=== PATIENT | male | born 1975 | race Caucasian/White ===

== ENCOUNTER 2016-10-07 04:30 | Inpatient (IN) | payer BC ==
[2016-10-07] MEDS: SODIUM CHLOR 0.9% 1000 ML INJ 1,000 ML IV SCH ×3 (04:30→17:54)
[2016-10-07 08:50] VITALS: BP 117/77; PULSE 102; RESP 21; TEMP 97; O2SAT 97
[2016-10-07] MEDS ORDERED: MORPHINE SULFATE 4 MG/ML INJ IV PUSH ONE (09:00)
[2016-10-07] MEDS ORDERED: IOHEXOL 350 MG/ML 10 ML VIAL (for RAD DIAG) IV ONE (09:38)
[2016-10-07] MEDS ORDERED: ACETAMINOPHEN 325 MG TAB PO PRN (10:15)
[2016-10-07] MEDS ORDERED: SODIUM CHLORIDE 0.9% FLUSH 10 ML FLUSH IV FLUSH PRN (10:15)
[2016-10-07] MEDS ORDERED: DEXTROSE 50% IN WATER 50 ML VIAL(D50) IV PRN (10:45)
[2016-10-07] MEDS ORDERED: GLUCAGON 1 MG/ML VIAL OTHER PRN (10:45)
[2016-10-07 11:10] LABS: AUTOMATED NEUTROPHIL # 3.2 TH/MM3 (1.8-7.7); BASOPHIL % 0.9 % (0.0-2.0); EOSINOPHIL # 0.1 TH/MM3 (0-0.4); EOSINOPHIL % 2.1 % (0.0-4.0); HEMATOCRIT 44.8 % (39.0-51.0); HEMO FLAGS DIFF FINAL; LYMPH % 27.2 % (9.0-44.0); LYMPHOCYTE # 1.4 TH/MM3 (1.0-4.8); MEAN CELL VOLUME 86.7 FL (80.0-100.0); MEAN CORPUSCULAR HEMOGLOBIN 30.5 PG (27.0-34.0); MEAN CORPUSCULAR HGB CONC 35.2 % (32.0-36.0); NEUT % 61.8 % (16.0-70.0); PLATELET COUNT 235 TH/MM3 (150-450); RED BLOOD COUNT 5.16 MIL/MM3 (4.50-5.90); RED CELL DISTRIBUTION WIDTH 13.3 % (11.6-17.2); WHITE BLOOD COUNT 5.3 TH/MM3 (4.0-11.0)
--- NOTE | 2016-10-07 11:14 | RADRPT ---
EXAM DATE/TIME: 10/07/2016 09:29 [facility] COMPARISON: No previous studies available for comparison. INDICATIONS : Right lower quadrant pain, evaluate for ischemic bowel IV CONTRAST: 100 cc Omnipaque 350 (iohexol) IV ORAL CONTRAST: No oral contrast ingested. RADIATION DOSE: 7.54 CTDIvol (mGy) MEDICAL HISTORY : Hypertension. Pancreatitis. Diabetes mellitus type 1. SURGICAL HISTORY : Cholecystectomy. ENCOUNTER: Initial ACUITY: 2 days PAIN SCALE: 9/10 LOCATION: Right lower quadrant TECHNIQUE: Volumetric scanning was performed using a multi-row detector CT scanner. The data was post processed with a variety of visualization algorithms including full volume maximum intensity projection, multi -planar sliding thin slab reformation, curved planar reformation, and surface rendering techniques. Using automated exposure control and adjustment of the mA and/or kV according to patient size, radiat ion dose was kept as low as reasonably achievable to obtain optimal diagnostic quality images. FINDINGS: The abdominal aorta and iliacs are widely patent. Looking at the aortic visceral vessels, there is va riant celiac anatomy with separate origins of the common hepatic artery and splenic artery from the a palma adjacent to one another. The left gastric arises from the proximal splenic. The superior mesente stefani artery is widely patent. The inferior mesenteric artery is widely patent. In the pelvis, hypogast rics are patent bilaterally. The visualized proximal thigh vessels are normal in appearance. Elsewhere on the exam comment note is made of mild bibasilar parenchymal lung infiltrates. The gallbl adder is surgically absent. Urinary bladder is mildly distended. The appendix is seen and appears nor mal. CONCLUSION: No evidence of mesenteric arterial stenosis Kaleb Sarkar MD on October 07, 2016 at 11:05 Board Certified Radiologist. This report was verified electronically.
[2016-10-07 11:29] LABS: ALT (GPT) 167 U/L (12-78); ANION GAP 7 MEQ/L (5-15); AST (GOT) 144 U/L (15-37); BICARBONATE 23.6 MEQ/L (21.0-32.0); BLOOD UREA NITROGEN 9 MG/DL (7-18); CHLORIDE 107 MEQ/L (98-107); GLOMERULAR FILTRATION RATE 144 ML/MIN (>89); MAGNESIUM 2.2 MG/DL (1.5-2.5); POTASSIUM 3.9 MEQ/L (3.5-5.1); SODIUM (NA) 138 MEQ/L (136-145)
[2016-10-07 11:33] LABS: ALKALINE PHOSPHATASE 97 U/L (45-117); TOTAL BILIRUBIN ADULT 0.8 MG/DL (0.2-1.0)
[2016-10-07] MEDS: HEPARIN SODIUM - SQ 10,000 UNITS/ML VIAL SQ SCH ×3 (11:33→18:46)
[2016-10-07] MEDS: MORPHINE SULFATE 4 MG/ML INJ IV PUSH PRN ×5 (11:33→22:57)
[2016-10-07] MEDS: ONDANSETRON HCL 4 MG/2 ML VIAL IVP PRN ×3 (11:34→22:57)
[2016-10-07] MEDS: INSULIN ASPART SUPPLEMENTAL SCALE SQ SCH ×3 (11:35→19:50)
[2016-10-07 11:45] LABS: HDL CHOLESTEROL 21.8 MG/DL (40.0-60.0)
[2016-10-07 12:37] VITALS: BP 123/78; PULSE 86; RESP 20; TEMP 97.3; O2SAT 97
--- NOTE | 2016-10-07 14:22 | PD.CONS ---
HPI History of Present Illness This is a 41 year old [gentleman] who presented to [facility] with RLQ pain. yesterday at dinner he experienced "stomach ache" like he ate too much and then a few hours later began having a sharp stabbing severe pain in his RLQ. He did have nausea and vomited x 1. He had a similar episode of pain in 2002 and was told it was intussuception, given bowel rest. His last BM was yesterday and normal per pt. No hematemesis, tarry stool, hematochezia. Never had colonoscopy or EGD. He does complain of what appears to be abdominal hernia that has grown in the last months and is sore. (Gini Smith) PFSH Past Medical History DM2 Past Surgical History mastoidectomy cholecystectomy (Gini Smith) Coded Allergies: No Known Allergies (Verified , 10/06/16) Family History CVD DM Social History ETOh rarely smokes 1ppd no drugs (Gini Smith) Review of Systems Constitutional: DENIES: Fever Ears, nose, mouth, throat: DENIES: Hearing loss Respiratory: DENIES: Cough Cardiovascular: DENIES: Chest pain Gastrointestinal: COMPLAINS OF: Abdominal pain, Nausea, Vomiting, DENIES: Black stools, Bloody stools, Constipation, Diarrhea, Swelling of Abdomen, Hematemesis Genitourinary: DENIES: Hematuria Musculoskeletal: DENIES: Muscle aches Integumentary: DENIES: Rash Hematologic/lymphatic: DENIES: Bruising Immunologic/allergic: DENIES: Eczema Psychiatric: DENIES: Confusion (Gini Smith) GI Exam Vitals I&O Vital Signs Date Time Temp Pulse Resp B/P Pulse Ox O2 Delivery O2 Flow Rate FiO2 10/07/16 12:37 97.3 86 20 123/78 97 10/07/16 08:50 97.0 102 21 117/77 97 Imaging Last Impressions Abdomen/Pelvis CT 10/07/16 0000 Signed Impressions: Service Date/Time: Friday, October 07, 2016 09:29 - CONCLUSION: No evidence of mesenteric arterial stenosis Kaleb Sarkar MD Laboratory Test 10/07/16 10:51 White Blood Count 5.3 TH/MM3 Red Blood Count 5.16 MIL/MM3 Hemoglobin 15.8 GM/DL Hematocrit 44.8 % Mean Corpuscular Volume 86.7 FL Mean Corpuscular Hemoglobin 30.5 PG Mean Corpuscular Hemoglobin 35.2 % Concent Red Cell Distribution Width 13.3 % Platelet Count 235 TH/MM3 Mean Platelet Volume 7.1 FL Neutrophils (%) (Auto) 61.8 % Lymphocytes (%) (Auto) 27.2 % Monocytes (%) (Auto) 8.0 % Eosinophils (%) (Auto) 2.1 % Basophils (%) (Auto) 0.9 % Neutrophils # (Auto) 3.2 TH/MM3 Lymphocytes # (Auto) 1.4 TH/MM3 Monocytes # (Auto) 0.4 TH/MM3 Eosinophils # (Auto) 0.1 TH/MM3 Basophils # (Auto) 0.0 TH/MM3 CBC Comment DIFF FINAL Differential Comment Sodium Level 138 MEQ/L Potassium Level 3.9 MEQ/L Chloride Level 107 MEQ/L Carbon Dioxide Level 23.6 MEQ/L Anion Gap 7 MEQ/L Blood Urea Nitrogen 9 MG/DL Creatinine 0.61 MG/DL Estimat Glomerular Filtration 144 ML/MIN Rate Random Glucose 219 MG/DL Calcium Level 7.8 MG/DL Phosphorus Level 3.4 MG/DL Magnesium Level 2.2 MG/DL Total Bilirubin 0.8 MG/DL Aspartate Amino Transf 144 U/L (AST/SGOT) Alanine Aminotransferase 167 U/L (ALT/SGPT) Alkaline Phosphatase 97 U/L Total Protein 6.2 GM/DL Albumin 3.5 GM/DL Triglycerides Level 1156 MG/DL Cholesterol Level 264 MG/DL LDL Cholesterol MG/DL HDL Cholesterol 21.8 MG/DL Cholesterol/HDL Ratio 12.11 RATIO Lipase 1452 U/L Physical Examination HEENT: EOMI; normocephalic; atraumatic; no jaundice. CHEST: CTA CARDIAC: RRR ABDOMEN: Soft, nondistended, mild TTP RLQ; no hepatosplenomegaly; bowel sounds are present in all four quadrants. EXTREMITIES: No clubbing, cyanosis, or edema. SKIN: Normal; no rash; no jaundice. [employer] WORK[employer]: No focal deficits; alert and oriented times three. (Gini Smith) Assessment and Plan Plan ASSESSMENT - RLQ pain - recent sudden onsent sharp RLQ pain with nausea, 1 x vomit. HX intussception. CT abd unremarkable. D/w Dr Jaymie, pancreas normal, poss mild hepatic steatosis, no thickened loops colon to indicate ischemia. will do colonoscopy, EGD. - elevated lipase - 1452. maybe secondary to hypertriglyceridemia, 1156. - elevated LFTs - AST 144, ALT 167. Hep panel pending. 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
[2016-10-07] MEDS ORDERED: MAGNESIUM CITRATE SOLN 300 ML BTL PO ONE ×2 (16:00→18:00)
[2016-10-07 16:38] VITALS: BP 114/77; PULSE 86; RESP 20; TEMP 97.1; O2SAT 96
--- NOTE | 2016-10-07 17:13 | PD.PN.STU ---
Subjective Remarks Patient is a 41 year old gentleman with PMH of type 2 diabetes who presented to the ED 10/07 with a one day complaint of abdominal pain. The pain was initially epigastric in nature and described as a cramping sensation. It then gradually moved towards the RLQ and described as sharp and stabbing. On a pain scale he described it as 8.5/10. He denies having a BM since the onset of his pain but does report a history of watery bowel movements for a long time. He also describes nausea and one episode of vomiting with no blood. He reports still having an appetite. He has no pain with urination, fevers, SOB, chest pain, or syncope. He says in 2002 he had an episode of intussusception which feels similar to the pain he is having now. PMH: type 2 diabetes Meds: Metformin SHx: gallbladder, mastoidectomy FHx: mother: type 2 diabetes; father: type 2 diabetes, heart disease Allergies: NKA Social: 1 ppd for 20x yrs, rarely uses alcohol, works as pest control Objective Vitals GENERAL: Very uncomfortable, alert/awake/oriented x3, appears stated age, well- developed SKIN: Warm and dry. HEAD: Atraumatic. Normocephalic. EYES: Pupils equal and round. No scleral icterus. No injection or drainage. ENT: No nasal bleeding or discharge. Mucous membranes pink and moist. NECK: Trachea midline. No JVD. CARDIOVASCULAR: Regular rate and rhythm. RESPIRATORY: No accessory muscle use. Clear to auscultation. Breath sounds equal bilaterally. GASTROINTESTINAL: Bowel sounds decreased, abdomen nondistended. Pain with palpation in RLQ and referred pain to RLQ with palpation of LLQ. No rebound. MUSCULOSKELETAL: Extremities without clubbing, cyanosis, or edema. No obvious deformities. PSYCHIATRIC: Appropriate mood and affect; insight and judgment normal. Vital Signs Date Time Temp Pulse Resp B/P Pulse Ox O2 Delivery O2 Flow Rate FiO2 10/07/16 16:38 97.1 86 20 114/77 96 10/07/16 12:37 97.3 86 20 123/78 97 10/07/16 08:50 97.0 102 21 117/77 97 Result Diagram: 10/07/16 1051 10/07/16 1051 A/P Assessment and Plan Acute pancreatitis: Likely due to high triglyceride levels Lipase levels elevated NPO IV morphine NS Hypercholesterolemia: Initiate -statin therapy Hypertriglyceridemia: Initiate -statin therapy Type 2 diabetes mellitus: Pending HbA1c Discussed lifestyle changes Obesity: Lifestyle modifications Tobacco use: Discussed cessation Dung Yepez October 07, 2016 17:13 Sean Key MD October 08, 2016 17:19
--- NOTE | 2016-10-07 18:15 | HHI.HP ---
HPI Service [facility] Primary Care Physician No Primary Care Physician Admission Diagnosis Diagnoses: Chief Complaint: Abdominal pain Travel History International Travel<30 Days: No Contact w/Intl Traveler <30 Da: No Traveled to Known Affected Are: No History of Present Illness This is a 41-year-old male with past medical history significant for type 2 diabetes who presents to [facility] ED on 10/07 complaining of one day of abdominal pain. The patient states that the pain presented the night prior to presentation to the hospital localized in the epigastric region and the was described as crampy in sensation. Patient states that the pain gradually moved towards the right lower quadrant and became sharp and stabbing. Patient states the pain was 8-9/10 in intensity. Abdominal pain was associated with diarrhea and one episode of vomiting without blood. Patient states having an appetite. There was no pain with urination, fevers denies chance of breath, chest pain, palpitations, melena or hematochezia. Patient elicits a history of intussusception in 2002 which he had similar episodes of pain to what he is having now. Review of Systems As per history of present illness, other systems reviewed by me and negative. Past Family Social History Past Medical History DM2 Past Surgical History mastoidectomy cholecystectomy Reported Medications Metformin Allergies: Coded Allergies: No Known Allergies (Verified , 10/06/16) Active Ordered Medications Family History CVD DM Social History ETOh rarely smokes 1ppd no drugs Physical Exam Vital Signs Vital Signs Date Time Temp Pulse Resp B/P Pulse Ox O2 Delivery O2 Flow Rate FiO2 10/07/16 16:38 97.1 86 20 114/77 96 10/07/16 12:37 97.3 86 20 123/78 97 10/07/16 08:50 97.0 102 21 117/77 97 Physical Exam GENERAL: This is a well-nourished, well-developed patient, in no apparent distress. SKIN: No rashes, ecchymoses or lesions. Cool and dry. HEAD: Atraumatic. Normocephalic. No temporal or scalp tenderness. EYES: Pupils equal round and reactive. Extraocular motions intact. No scleral icterus. No injection or drainage. ENT: Nose without bleeding, purulent drainage or septal hematoma. Throat without erythema, tonsillar hypertrophy or exudate. Uvula midline. Airway patent. NECK: Trachea midline. No JVD or lymphadenopathy. Supple, nontender, no meningeal signs. CARDIOVASCULAR: Regular rate and rhythm without murmurs, gallops, or rubs. RESPIRATORY: Clear to auscultation. Breath sounds equal bilaterally. No wheezes , rales, or rhonchi. GASTROINTESTINAL: Abdomen soft, tender to palpation of the right lower quadrant and epigastric region, nondistended. No hepato-splenomegaly, or palpable masses. No guarding. MUSCULOSKELETAL: Extremities without clubbing, cyanosis, or edema. No joint tenderness, effusion, or edema noted. No calf tenderness. Negative Homans sign bilaterally. NEUROLOGICAL: Awake and alert. Cranial nerves II through XII intact. Motor and sensory grossly within normal limits. Five out of 5 muscle strength in all muscle groups. Normal speech. Laboratory Laboratory Tests Test 10/07/16 10:51 White Blood Count 5.3 Red Blood Count 5.16 Hemoglobin 15.8 Hematocrit 44.8 Mean Corpuscular Volume 86.7 Mean Corpuscular Hemoglobin 30.5 Mean Corpuscular Hemoglobin 35.2 Concent Red Cell Distribution Width 13.3 Platelet Count 235 Mean Platelet Volume 7.1 Neutrophils (%) (Auto) 61.8 Lymphocytes (%) (Auto) 27.2 Monocytes (%) (Auto) 8.0 Eosinophils (%) (Auto) 2.1 Basophils (%) (Auto) 0.9 Neutrophils # (Auto) 3.2 Lymphocytes # (Auto) 1.4 Monocytes # (Auto) 0.4 Eosinophils # (Auto) 0.1 Basophils # (Auto) 0.0 CBC Comment DIFF FINAL Differential Comment Sodium Level 138 Potassium Level 3.9 Chloride Level 107 Carbon Dioxide Level 23.6 Anion Gap 7 Blood Urea Nitrogen 9 Creatinine 0.61 Estimat Glomerular Filtration 144 Rate Random Glucose 219 Calcium Level 7.8 Phosphorus Level 3.4 Magnesium Level 2.2 Total Bilirubin 0.8 Aspartate Amino Transf 144 (AST/SGOT) Alanine Aminotransferase 167 (ALT/SGPT) Alkaline Phosphatase 97 Total Protein 6.2 Albumin 3.5 Triglycerides Level 1156 Cholesterol Level 264 LDL Cholesterol HDL Cholesterol 21.8 Cholesterol/HDL Ratio 12.11 Lipase 1452 Hepatitis A IgM Antibody NEGATIVE Hepatitis B Surface Antigen NEGATIVE Hepatitis B Core IgM Antibody NEGATIVE Hepatitis C Antibody NEGATIVE Result Diagram: 10/07/16 1051 10/07/16 1051 Imaging Last Impressions Abdomen/Pelvis CT 10/07/16 0000 Signed Impressions: Service Date/Time: Friday, October 07, 2016 09:29 - CONCLUSION: No evidence of mesenteric arterial stenosis Kaleb Sarkar MD Reviewed personally by me. Assessment and Plan Problem List: (1) RLQ abdominal pain ICD Code: R10.31 Status: Acute Plan: U male presents with epigastric abdominal pain which later localized in right lower quadrant proceeded with nausea vomiting and diarrhea. CT abdomen and pelvis initially obtained in the [facility] showed scattered diverticula with some degree of spasm of sigmoid colon an underlying mass difficult to exclude. However repeat CT abdomen and pelvis with IV contrast obtained in [facility] did not show any evidence of mesenteric arterial stenosis or does not mention any evidence of mass. Still unclear etiology of the abdominal pain, however differential diagnosis includes gastroenteritis, colitis, mass, resolved intussusception, mild pancreatitis. I would admit the patient to the medical floor, keep nothing by mouth and placed on IV normal saline J consulted, patient for EGD for size colonoscopy in a.m. (2) Nausea & vomiting ICD Code: R11.2 Status: Acute Plan: Now resolved. Continue IV Zofran (3) Diarrhea ICD Code: R19.7 Status: Resolved Plan: Patient also complaining of diarrhea previous to presentation. Denies any further episodes of diarrhea here in the hospital. (4) Elevated lipase ICD Code: R74.8 Status: Acute Plan: Elevated lipase at 1452. Elevated lipase could be secondary to gastritis , peptic ulcer disease, anything upsetting the GI tract, secondary to elevated triglycerides. I will see the patient on statin. (5) Diabetes mellitus with hyperglycemia ICD Code: E11.65 Status: Acute Plan: Hold metformin. Patient blood sugar in the mid 200s. I will place patient on SSI with insulin NovoLog and continue to monitor Accu-Cheks. Check hemoglobin A1c. (6) Hypertriglyceridemia ICD Code: E78.1 Status: Acute Plan: Lipid profile showed triglycerides of 1156, cholesterol 264 and HDL cholesterol of 21.8 I will start the patient on pravastatin. (7) Transaminitis ICD Code: R74.0 Status: Acute Plan: A shunt with elevated function test with an AST of 173 and ALTs of 110 on presentation to the ED. I will order hepatitis profile and continue to monitor liver function test. I will also order a liver ultrasound. Assessment and Plan GI prophylaxis: PPI DVT prophylaxis: Place on SCDs, heparin subcutaneous. Code Status Full code Discussed Condition With Patient, RN. Physician Certification 2 Midnight Certification Type: Admission for Inpatient Services Order for Inpatient Services The services are ordered in accordance with Medicare regulations or non- Medicare payer requirements, as applicable. In the case of services not specified as inpatient-only, they are appropriately provided as inpatient services in accordance with the 2-midnight benchmark. Estimated LOS (days): 2 days is the estimated time the patient will need to remain in the hospital, assuming treatment plan goals are met and no additional complications. Post-Hospital Plan: Home Problem Qualifiers (1) Nausea & vomiting: Qualified Code: R11.2 - Non-intractable vomiting with nausea, unspecified vomiting type (2) Diarrhea: Qualified Code: R19.7 - Diarrhea, unspecified type Sean Key MD October 07, 2016 18:15
[2016-10-07 18:20] LABS: HEMOGLOBIN A1a 1.8 %; HEMOGLOBIN A1b 1.3 %; HEMOGLOBIN Ao 75.3 %; HEMOGLOBIN F 3.2 %; HEMOGLOBIN LA1C 3.2 %; HEMOGLOBIN P3 5.1 %
[2016-10-07] MEDS: PRAVASTATIN SOD 20 MG TAB PO SCH (19:45)
[2016-10-07] MEDS: SODIUM CHLORIDE 0.9% FLUSH 10 ML FLUSH IV FLUSH SCH (19:46)
[2016-10-07 20:00] VITALS: BP 128/75; PULSE 95; RESP 18; TEMP 98.5; O2SAT 96
[2016-10-08] VITALS: BP 130/84; PULSE 93; RESP 18; TEMP 97.5; O2SAT 95
[2016-10-08 04:00] VITALS: BP 114/81; PULSE 88; RESP 16; TEMP 98.1; O2SAT 96
[2016-10-08] MEDS: SODIUM CHLOR 0.9% 1000 ML INJ 1,000 ML IV SCH ×4 (04:30→21:17)
[2016-10-08] MEDS: MORPHINE SULFATE 4 MG/ML INJ IV PUSH PRN ×7 (04:31→21:15)
[2016-10-08] MEDS: ONDANSETRON HCL 4 MG/2 ML VIAL IVP PRN ×3 (04:31→17:52)
[2016-10-08] MEDS: INSULIN ASPART SUPPLEMENTAL SCALE SQ SCH ×4 (06:42→21:36)
[2016-10-08] MEDS: HEPARIN SODIUM - SQ 10,000 UNITS/ML VIAL SQ SCH ×2 (07:32→16:17)
[2016-10-08] MEDS: PRAVASTATIN SOD 20 MG TAB PO SCH (07:56)
[2016-10-08] MEDS: SODIUM CHLORIDE 0.9% FLUSH 10 ML FLUSH IV FLUSH SCH ×2 (07:56→21:00)
[2016-10-08 08:49] VITALS: BP 131/93; PULSE 88; RESP 20; TEMP 97.4; O2SAT 98
[2016-10-08 09:15] LABS: AUTOMATED NEUTROPHIL # 3.8 TH/MM3 (1.8-7.7); BASOPHIL % 0.7 % (0.0-2.0); EOSINOPHIL # 0.1 TH/MM3 (0-0.4); HEMATOCRIT 46.1 % (39.0-51.0); LYMPH % 28.9 % (9.0-44.0); LYMPHOCYTE # 1.8 TH/MM3 (1.0-4.8); MEAN CELL VOLUME 87.5 FL (80.0-100.0); MEAN CORPUSCULAR HEMOGLOBIN 30.5 PG (27.0-34.0); MEAN CORPUSCULAR HGB CONC 34.9 % (32.0-36.0); MONO % 6.3 % (0.0-8.0); NEUT % 62.1 % (16.0-70.0); PLATELET COUNT 223 TH/MM3 (150-450); RED BLOOD COUNT 5.26 MIL/MM3 (4.50-5.90); RED CELL DISTRIBUTION WIDTH 13.1 % (11.6-17.2); WHITE BLOOD COUNT 6.1 TH/MM3 (4.0-11.0)
[2016-10-08 09:34] LABS: HEMO FLAGS AUTO DIFF
--- NOTE | 2016-10-08 09:37 | PD.PN.STU ---
Subjective Remarks Pain is minimally improved 7/10, still in RLQ Up during the night with frequent loose BMs due to colonoscopy prep Appetite is good Discussed importance of control of diabetes to prevent future episodes Objective Vitals GENERAL: This is a well-nourished, well-developed patient, in no apparent distress. SKIN: No rashes, ecchymoses or lesions. Cool and dry. HEAD: Atraumatic. Normocephalic. No temporal or scalp tenderness. EYES: Pupils equal round and reactive. Extraocular motions intact. No scleral icterus. No injection or drainage. ENT: Nose without bleeding, purulent drainage or septal hematoma. Throat without erythema, tonsillar hypertrophy or exudate. Uvula midline. Airway patent. NECK: Trachea midline. No JVD or lymphadenopathy. Supple, nontender, no meningeal signs. CARDIOVASCULAR: Regular rate and rhythm without murmurs, gallops, or rubs. RESPIRATORY: Clear to auscultation. Breath sounds equal bilaterally. No wheezes , rales, or rhonchi. GASTROINTESTINAL: Abdomen soft, tender to palpation of the right lower quadrant and epigastric region, nondistended. No hepato-splenomegaly, or palpable masses. No guarding. MUSCULOSKELETAL: Extremities without clubbing, cyanosis, or edema. No joint tenderness, effusion, or edema noted. No calf tenderness. Negative Homans sign bilaterally. NEUROLOGICAL: Awake and alert. Cranial nerves II through XII intact. Motor and sensory grossly within normal limits. Five out of 5 muscle strength in all muscle groups. Normal speech. Vital Signs Date Time Temp Pulse Resp B/P Pulse Ox O2 Delivery O2 Flow Rate FiO2 10/08/16 08:49 97.4 88 20 131/93 98 10/08/16 04:00 98.1 88 16 114/81 96 10/08/16 00:00 97.5 93 18 130/84 95 10/07/16 20:00 98.5 95 18 128/75 96 10/07/16 16:38 97.1 86 20 114/77 96 10/07/16 12:37 97.3 86 20 123/78 97 I/O 10/07/16 10/07/16 10/07/16 10/08/16 10/08/16 10/08/16 07:00 15:00 23:00 07:00 15:00 23:00 Intake Total 240 ml 2018 ml Output Total 300 ml Balance 240 ml 1718 ml Intake Oral 240 ml IV Total 2018 ml Output Emesis 300 ml # Voids 2 5 # Bowel Movements 5 Result Diagram: 10/07/16 1051 10/07/16 1051 A/P Assessment and Plan Acute pancreatitis: Likely due to high triglyceride levels Lipase levels elevated though improved from 1454 to 602 NPO IV morphine NS for fluids Colonoscopy today Hypercholesterolemia: -statin therapy Elevated transaminases: Likely secondary to acute pancreatitis Will get liver U/S today Hypertriglyceridemia: -statin therapy Type 2 diabetes mellitus: HbA1c of 10.1 Holding Metformin for now, started on sliding scale insulin Discussed lifestyle changes Obesity: Lifestyle modifications Tobacco use: Discussed cessation Dung Yepez October 08, 2016 09:37 Sean Key MD October 08, 2016 17:19
--- NOTE | 2016-10-08 09:56 | RADRPT ---
EXAM DATE/TIME: 10/08/2016 08:36 [facility] COMPARISON: CTA ABDOMEN & PELVIS W 3D RECON, October 07, 2016, 9:29. CT ABDOMEN & PELVIS W/O CONTRAST, October 06, 2016, 23:23. INDICATIONS : Increased lab values. MEDICAL HISTORY : Hypercholesterolemia. Hypertension. Cavities. Neurologic problems. Head trauma 10 years ago. Dizzin ess. Headache. Migrane. Pancreatitis. Abdominal pain. Nausea. Vomiting. Diabetes. Depression. SURGICAL HISTORY : Cholecystectomy. Exploratory abdominal surgery. ENCOUNTER: Initial ACUITY: 1 day PAIN SCORE: 8/10 LOCATION: Bilateral Abdomen. MEASUREMENTS: LIVER: 21.9 cm length COMMON DUCT: 4 mm RIGHT KIDNEY: 13.9 x 6.5 x 5.8 cm SPLEEN: 10.7 cm length FINDINGS: LIVER: Increased echotexture without focal lesion or ductal dilatation. COMMON DUCT: No intraluminal mass or stone visualized. GALLBLADDER: Surgically absent. PANCREAS: The visualized portions are within normal limits. RIGHT KIDNEY: No hydronephrosis, stone or mass. SPLEEN: No focal lesion. CONCLUSION: 1. Hepatomegaly with steatosis. 2. Visualized portions of the pancreas have a normal appearance. Pancreatic tail is not seen. Kaleb Khan MD on October 08, 2016 at 9:54 Board Certified Radiologist. This report was verified electronically.
[2016-10-08 10:12] LABS: ALKALINE PHOSPHATASE 115 U/L (45-117); ALT (GPT) 289 U/L (12-78); ANION GAP 9 MEQ/L (5-15); AST (GOT) 168 U/L (15-37); BICARBONATE 24.5 MEQ/L (21.0-32.0); BLOOD UREA NITROGEN 8 MG/DL (7-18); CHLORIDE 107 MEQ/L (98-107); FERRITIN 115 NG/ML (26-388); GLOMERULAR FILTRATION RATE 173 ML/MIN (>89); SODIUM (NA) 140 MEQ/L (136-145); TOTAL BILIRUBIN ADULT 0.8 MG/DL (0.2-1.0)
[2016-10-08 10:23] LABS: PLATELET ESTIMATE SMEAR NORMAL (NORMAL); PLATELET MORPHOLOGY CLUMPED (NORMAL); SCAN/DIFF AUTO DIFF CONFIRMED
--- NOTE | 2016-10-08 11:19 | PD.PROCEDR ---
GI Procedure REFERRING PHYSICIAN ADDIE PROCEDURE PERFORMED EGD with biopsy followed by colonoscopy INDICATION FOR PROCEDURE Abdominal pain nausea vomiting PROCEDURE: The procedure, risks and benefits were discussed with Mr. Jefferson and informed consent was obtained. Anesthesia sedated him with Diprivan. He was placed in the left lateral decubitus position. EGD: The Pentax videoscope was introduced through the oropharynx and advanced to the second portion of the duodenum under direct visualization. Retroflexion was performed in the stomach. FINDINGS: The esophagus there was distal esophageal mucosal erythema in a streaky fashion consistent with reflux esophagitis class a this was biopsied The stomach there was on antral erythema with superficial erosions and no ulcerations no blood or bleeding the rest of the gastric mucosa was edematous antral biopsies were taken further evaluation The duodenum there were also superficial erosions noted in the duodenal bulb but no ulcerations and no blood or bleeding Colonoscopy: The Pentax videoscope was introduced through the rectum and advanced to cecum where the ileocecal found and appendiceal orifice were identified. Retroflexion was performed in the rectum. Colonic prep was poor FINDINGS: Colonic withdrawal time 7 minutes as the scope was slowly withdrawn colonic mucosa was carefully inspected this was noted to be unremarkable and within normal limits whole way through retroflexion in rectal examination were also unremarkable ESTIMATED BLOOD LOSS: None SPECIMENS REMOVED: Esophageal and gastric samples were taken COMPLICATIONS: None IMPRESSION: Reflux esophagitis Erosive Gastritis Erosive duodenitis Incomplete evaluation of the colon due to poor prep PLAN: Await biopsies Avoid NSAIDs and aspirin Monitor labs Start PPI Patient will require repeat colonoscopy possibly in a month or 2 Patient most likely has hyperlipidemia induced pancreatitis at this point and we 'll continue with current supportive measures Jose Ruiz MD October 08, 2016 11:19
[2016-10-08] MEDS ORDERED: *morphine SULFATE 8 MG/ML PERIprocedure ONLY ONE (11:27)
[2016-10-08] MEDS ORDERED: DO NOT ADM ANY ANTICOAGULANT DRUGS PRN (12:00)
[2016-10-08] MEDS: PANTOPRAZOLE SOD 40 MG DELAYED RELEASE TAB PO SCH ×2 (12:16→21:15)
[2016-10-08 12:22] VITALS: BP 119/90; PULSE 83; RESP 20; TEMP 97.4; O2SAT 97
--- NOTE | 2016-10-08 13:09 | HHI.GIFU ---
Subjective Remarks Pt resting in bed, visiting with . Says he is still having RLQ but not as "extreme" as yesterday. He is nauseous. NO vomiting, no BM since last night ( colon prep). (Gini Smith) Objective Vitals I&O Vital Signs Date Time Temp Pulse Resp B/P Pulse Ox O2 Delivery O2 Flow Rate FiO2 10/08/16 12:22 97.4 83 20 119/90 97 10/08/16 08:49 97.4 88 20 131/93 98 10/08/16 04:00 98.1 88 16 114/81 96 10/08/16 00:00 97.5 93 18 130/84 95 10/07/16 20:00 98.5 95 18 128/75 96 10/07/16 16:38 97.1 86 20 114/77 96 I/O 10/07/16 10/07/16 10/07/16 10/08/16 10/08/16 10/08/16 06:59 14:59 22:59 06:59 14:59 22:59 Intake Total 240 ml 2018 ml Output Total 300 ml Balance 240 ml 1718 ml Intake Oral 240 ml IV Total 2018 ml Output Emesis 300 ml # Voids 2 5 # Bowel Movements 5 Laboratory Laboratory Tests Test 10/08/16 07:50 White Blood Count 6.1 Red Blood Count 5.26 Hemoglobin 16.1 Hematocrit 46.1 Mean Corpuscular Volume 87.5 Mean Corpuscular Hemoglobin 30.5 Mean Corpuscular Hemoglobin 34.9 Concent Red Cell Distribution Width 13.1 Platelet Count 223 Mean Platelet Volume 7.8 Neutrophils (%) (Auto) 62.1 Lymphocytes (%) (Auto) 28.9 Monocytes (%) (Auto) 6.3 Eosinophils (%) (Auto) 2.0 Basophils (%) (Auto) 0.7 Neutrophils # (Auto) 3.8 Lymphocytes # (Auto) 1.8 Monocytes # (Auto) 0.4 Eosinophils # (Auto) 0.1 Basophils # (Auto) 0.0 CBC Comment AUTO DIFF Differential Comment AUTO DIFF CONFIRMED Platelet Estimate NORMAL Platelet Morphology Comment CLUMPED Sodium Level 140 Potassium Level 4.0 Chloride Level 107 Carbon Dioxide Level 24.5 Anion Gap 9 Blood Urea Nitrogen 8 Creatinine 0.52 Estimat Glomerular Filtration 173 Rate Random Glucose 182 Calcium Level 7.9 Iron Level 109 Ferritin 115 Total Bilirubin 0.8 Aspartate Amino Transf 168 (AST/SGOT) Alanine Aminotransferase 289 (ALT/SGPT) Alkaline Phosphatase 115 Total Protein 6.1 Albumin 3.2 Lipase 602 Imaging Last Impressions Liver Ultrasound 10/08/16 0000 Signed Impressions: Service Date/Time: Saturday, October 08, 2016 08:36 - CONCLUSION: 1. Hepatomegaly with steatosis. 2. Visualized portions of the pancreas have a normal appearance. Pancreatic tail is not seen. Kaleb Khan MD Abdomen/Pelvis CT 10/07/16 0000 Signed Impressions: Service Date/Time: Friday, October 07, 2016 09:29 - CONCLUSION: No evidence of mesenteric arterial stenosis Kaleb Sarkar MD Physical Exam HEENT: EOMI; normocephalic; atraumatic; no jaundice. CHEST: CTA CARDIAC: RRR ABDOMEN: Soft, nondistended, RLQ TTP; bowel sounds are present in all four quadrants. EXTREMITIES: No clubbing, cyanosis, or edema. SKIN: Normal; no rash; no jaundice. WATER RESOURCES ENGINEER: No focal deficits; alert and oriented times three. (Gini Smith) Assessment and Plan Plan ASSESSMENT - RLQ pain - recent sudden onsent sharp RLQ pain with nausea, 1 x vomit. HX intussception. s/p colonoscopy/EGD 10-07-16--> reflux esophagitis, erosive gastritis, reosive duodenitis, incomplete evaluation colon r/t poor prep. CT abd unremarkable, D/w Dr Coon, pancreas normal, poss mild hepatic steatosis, no thickened loops colon to indicate ischemia. - elevated lipase - trending down, 602 today. maybe secondary to hypertriglyceridemia, 1156. PT has been started on Pravastatin - elevated LFTs - AST 144, ALT 167. US liver ---> 1. Hepatomegaly with steatosis. 2. Visualized portions of the pancreas have a normal appearance. Pancreatic tail is not seen. Hep panel pending. PLAN - continue statin therapy - NPO for now - avoid NSAIDs - start PPI -supportive care - colonoscopy in 1-2 m This pt seen by myself and Dr Ruiz and this note is written on his behalf (Gini Smith) Physician Comments Patient seen and examined Agree with above Continue with current supportive care Monitor labs Liver workup in progress (Jose Ruiz MD) Gini Smith October 08, 2016 13:09 Jose Ruiz MD October 08, 2016 19:36
[2016-10-08] MEDS ORDERED: PROPOFOL 200 MG/20 ML AMP IV ONE (15:29)
[2016-10-08 16:17] VITALS: BP 121/76; PULSE 78; RESP 20; TEMP 97.5; O2SAT 97
--- NOTE | 2016-10-08 17:19 | HHI.PR ---
Subjective Remarks patient is sp egd/colonoscopy Patient still c/o RLQ abdominal pain, however this is better 09/25 denies fevers/chills denies cp/sob (+) nausea but no vomiting denies diarrhea Objective Vitals Vital Signs Date Time Temp Pulse Resp B/P Pulse Ox O2 Delivery O2 Flow Rate FiO2 10/08/16 16:17 97.5 78 20 121/76 97 10/08/16 12:22 97.4 83 20 119/90 97 10/08/16 08:49 97.4 88 20 131/93 98 10/08/16 04:00 98.1 88 16 114/81 96 10/08/16 00:00 97.5 93 18 130/84 95 10/07/16 20:00 98.5 95 18 128/75 96 I/O 10/07/16 10/07/16 10/07/16 10/08/16 10/08/16 10/08/16 06:59 14:59 22:59 06:59 14:59 22:59 Intake Total 240 ml 2018 ml 400 ml Output Total 300 ml Balance 240 ml 1718 ml 400 ml Intake Oral 240 ml 400 ml IV Total 2018 ml Output Emesis 300 ml # Voids 2 5 1 # Bowel Movements 5 Result Diagram: 10/08/16 0750 10/08/16 0750 Imaging Last Impressions Liver Ultrasound 10/08/16 0000 Signed Impressions: Service Date/Time: Saturday, October 08, 2016 08:36 - CONCLUSION: 1. Hepatomegaly with steatosis. 2. Visualized portions of the pancreas have a normal appearance. Pancreatic tail is not seen. Kaleb Khan MD Abdomen/Pelvis CT 10/07/16 0000 Signed Impressions: Service Date/Time: Friday, October 07, 2016 09:29 - CONCLUSION: No evidence of mesenteric arterial stenosis Kaleb Sarkar MD Objective Remarks GENERAL: This is a well-nourished, well-developed patient, in no apparent distress. SKIN: No rashes, ecchymoses or lesions. Cool and dry. HEAD: Atraumatic. Normocephalic. No temporal or scalp tenderness. EYES: Pupils equal round and reactive. Extraocular motions intact. No scleral icterus. No injection or drainage. ENT: Nose without bleeding, purulent drainage or septal hematoma. Throat without erythema, tonsillar hypertrophy or exudate. Uvula midline. Airway patent. NECK: Trachea midline. No JVD or lymphadenopathy. Supple, nontender, no meningeal signs. CARDIOVASCULAR: Regular rate and rhythm without murmurs, gallops, or rubs. RESPIRATORY: Clear to auscultation. Breath sounds equal bilaterally. No wheezes , rales, or rhonchi. GASTROINTESTINAL: Abdomen soft, tender to palpation of the right lower quadrant and epigastric region, nondistended. No hepato-splenomegaly, or palpable masses. No guarding. MUSCULOSKELETAL: Extremities without clubbing, cyanosis, or edema. No joint tenderness, effusion, or edema noted. No calf tenderness. Negative Homans sign bilaterally. NEUROLOGICAL: Awake and alert. Cranial nerves II through XII intact. Motor and sensory grossly within normal limits. Five out of 5 muscle strength in all muscle groups. Normal speech. Medications and IVs Current Medications Medications (Trade) Dose Ordered Sig/Marshal Route Start Time Stop Time Status Last Admin (NS 1000 ml Inj) 1,000 ml @ 150 mls/hr Q6H40M IV 10/07/16 10:03 10/08/16 21:17 (NS Flush) 2 ml UNSCH PRN IV FLUSH 10/07/16 10:15 (NS Flush) 2 ml BID IV FLUSH 10/07/16 21:00 10/08/16 07:56 (Tylenol) 650 mg Q4H PRN PO 10/07/16 10:15 (Zofran Inj) 4 mg Q6H PRN IVP 10/07/16 10:15 10/09/16 08:42 (Heparin Inj) 5,000 units Q8H SQ 10/07/16 11:00 10/07/16 11:33 (Morphine Inj) 2 mg Q3H PRN IV PUSH 10/07/16 10:15 (Morphine Inj) 4 mg Q3H PRN IV PUSH 10/07/16 10:15 10/09/16 08:42 (D50w (Vial) Inj) 50 ml UNSCH PRN IV 10/07/16 10:45 (Glucagon Inj) 1 mg UNSCH PRN OTHER 10/07/16 10:45 (Pravachol) 20 mg DAILY PO 10/07/16 19:15 10/09/16 08:43 (Protonix) 40 mg BID PO 10/08/16 12:00 10/09/16 08:43 Miscellaneous Information ALL NURSING DEPARTME... UNSCH PRN .XX 10/08/16 12:00 10/09/16 11:59 A/P Problem List: (1) RLQ abdominal pain ICD Code: R10.31 Status: Acute (2) Nausea & vomiting ICD Code: R11.2 Status: Acute (3) Diarrhea ICD Code: R19.7 Status: Resolved (4) Elevated lipase ICD Code: R74.8 Status: Acute (5) Diabetes mellitus with hyperglycemia ICD Code: E11.65 Status: Acute (6) Hypertriglyceridemia ICD Code: E78.1 Status: Acute (7) Transaminitis ICD Code: R74.0 Status: Acute Assessment and Plan (1) RLQ abdominal pain Plan: 41 yo male presents with epigastric abdominal pain which later localized in right lower quadrant proceeded with nausea vomiting and diarrhea. CT abdomen and pelvis initially obtained in the [facility] showed scattered diverticula with some degree of spasm of sigmoid colon an underlying mass difficult to exclude. However repeat CT abdomen and pelvis with IV contrast obtained in [facility] did not show any evidence of mesenteric arterial stenosis or does not mention any evidence of mass. Still unclear etiology of the abdominal pain, however differential diagnosis includes gastroenteritis, colitis, mass, resolved intussusception, mild pancreatitis. Patient was admitted to the medical floor, placed on IV fluids, kept nothing by mouth, GI consulted, underwent EGD/colonoscopy on 10/08 which found erosive gastritis and hiatal hernia. Patient placed on Protonix 40 mg by mouth twice a day. Continue. Pain control with IV morphine. (2) Nausea & vomiting Plan: Now resolved. Continue IV Zofran (3) Diarrhea Plan: Patient also complaining of diarrhea previous to presentation. Denies any further episodes of diarrhea here in the hospital. (4) Elevated lipase Plan: Elevated lipase at 1452. Elevated lipase could be secondary to gastritis , peptic ulcer disease, anything upsetting the GI tract, secondary to elevated triglycerides. Continue to monitor lipase. 10/08 lipase is trending down. Now 602. (5) Diabetes mellitus with hyperglycemia Plan: Hold metformin. Patient blood sugar in the mid 200s. I will place patient on SSI with insulin NovoLog and continue to monitor Accu-Cheks. Check hemoglobin A1c. 10/08 hemoglobin A1c 10.1. Diabetes uncontrolled. The patient will need to be started on insulin and will likely need to be discharged on insulin. (6) Hypertriglyceridemia Plan: Lipid profile showed triglycerides of 1156, cholesterol 264 and HDL cholesterol of 21.8 Continue pravastatin. (7) Transaminitis Plan: Patient with elevated function test with an AST of 173 and ALTs of 110 on presentation to the ED. liver function tests trending up. Liver ultrasound showed hepatomegaly with steatosis. Visualized portion of the pancreas have a normal appearance. Pancreatic tail is not seen. Hepatitis profile negative. Continue to monitor liver function tests. Assessment and Plan GI prophylaxis: PPI DVT prophylaxis: Place on SCDs, heparin subcutaneous. Discharge Planning Continue to monitor and the medical floor. Problem Qualifiers (1) Nausea & vomiting: Qualified Code: R11.2 - Non-intractable vomiting with nausea, unspecified vomiting type (2) Diarrhea: Qualified Code: R19.7 - Diarrhea, unspecified type Sean Key MD October 08, 2016 17:19
[2016-10-08 20:00] VITALS: BP 118/67; PULSE 80; RESP 17; TEMP 97.7; O2SAT 98
[2016-10-08] MEDS ORDERED: PROCHLORPERAZINE INJ 10 MG/2 ML VIAL IV PUSH ONE (22:45)
[2016-10-09] VITALS: BP 112/68; PULSE 87; RESP 17; TEMP 96.8; O2SAT 96
[2016-10-09 05:20] VITALS: BP 118/69; PULSE 76; RESP 18; TEMP 96.7; O2SAT 96
[2016-10-09] MEDS: MORPHINE SULFATE 4 MG/ML INJ IV PUSH PRN ×6 (05:30→22:40)
[2016-10-09] MEDS: INSULIN ASPART SUPPLEMENTAL SCALE SQ SCH ×4 (05:36→20:00)
[2016-10-09 06:39] LABS: HEMATOCRIT 42.8 % (39.0-51.0); MEAN CELL VOLUME 88.5 FL (80.0-100.0); MEAN CORPUSCULAR HEMOGLOBIN 30.4 PG (27.0-34.0); MEAN CORPUSCULAR HGB CONC 34.3 % (32.0-36.0); PLATELET COUNT 202 TH/MM3 (150-450); RED BLOOD COUNT 4.84 MIL/MM3 (4.50-5.90); REVIEW FLAG FINAL; WHITE BLOOD COUNT 4.9 TH/MM3 (4.0-11.0)
[2016-10-09 06:45] LABS: ALKALINE PHOSPHATASE 126 U/L (45-117); TOTAL BILIRUBIN ADULT 0.7 MG/DL (0.2-1.0)
[2016-10-09 07:07] LABS: ALT (GPT) 251 U/L (12-78); ANION GAP 9 MEQ/L (5-15); AST (GOT) 111 U/L (15-37); BLOOD UREA NITROGEN 7 MG/DL (7-18); CHLORIDE 109 MEQ/L (98-107); GLOMERULAR FILTRATION RATE 181 ML/MIN (>89); POTASSIUM 3.9 MEQ/L (3.5-5.1); SODIUM (NA) 140 MEQ/L (136-145)
[2016-10-09 08:00] VITALS: BP 126/74; PULSE 69; RESP 18; TEMP 98; O2SAT 97
[2016-10-09] MEDS: ONDANSETRON HCL 4 MG/2 ML VIAL IVP PRN ×3 (08:42→22:39)
[2016-10-09] MEDS: PANTOPRAZOLE SOD 40 MG DELAYED RELEASE TAB PO SCH ×2 (08:43→19:44)
[2016-10-09] MEDS: PRAVASTATIN SOD 20 MG TAB PO SCH (08:43)
--- NOTE | 2016-10-09 08:45 | PD.PN.STU ---
Subjective Remarks pain improving, now 3/10 in RLQ c/o nausea this morning, reports improvement with Compazine last night tolerating liquid diet passing flatus, no BM colonoscopy inconclusive, will need repeat on outpatient basis Objective Vitals GENERAL: This is a well-nourished, well-developed patient, in no apparent distress. SKIN: No rashes, ecchymoses or lesions. Cool and dry. HEAD: Atraumatic. Normocephalic. No temporal or scalp tenderness. EYES: Pupils equal round and reactive. Extraocular motions intact. No scleral icterus. No injection or drainage. ENT: Nose without bleeding, purulent drainage or septal hematoma. Throat without erythema, tonsillar hypertrophy or exudate. Uvula midline. Airway patent. NECK: Trachea midline. No JVD or lymphadenopathy. Supple, nontender, no meningeal signs. CARDIOVASCULAR: Regular rate and rhythm without murmurs, gallops, or rubs. RESPIRATORY: Clear to auscultation. Breath sounds equal bilaterally. No wheezes , rales, or rhonchi. GASTROINTESTINAL: Abdomen soft, tender to palpation of the right lower quadrant and epigastric region, nondistended. No hepato-splenomegaly, or palpable masses. No guarding. MUSCULOSKELETAL: Extremities without clubbing, cyanosis, or edema. No joint tenderness, effusion, or edema noted. No calf tenderness. Negative Homans sign bilaterally. NEUROLOGICAL: Awake and alert. Cranial nerves II through XII intact. Motor and sensory grossly within normal limits. Five out of 5 muscle strength in all muscle groups. Normal speech. Vital Signs Date Time Temp Pulse Resp B/P Pulse Ox O2 Delivery O2 Flow Rate FiO2 10/09/16 05:20 96.7 76 18 118/69 96 10/09/16 00:00 96.8 87 17 112/68 96 10/08/16 20:00 97.7 80 17 118/67 98 10/08/16 16:17 97.5 78 20 121/76 97 10/08/16 12:22 97.4 83 20 119/90 97 10/08/16 11:30 97.8 84 16 115/61 98 10/08/16 11:15 97.7 83 15 114/59 98 10/08/16 08:49 97.4 88 20 131/93 98 I/O 10/08/16 10/08/16 10/08/16 10/09/16/24/17 5/24/17 07:00 15:00 23:00 07:00 15:00 23:00 Intake Total 2018 ml 850 ml 2280 ml Output Total 300 ml 0 ml Balance 1718 ml 850 ml 2280 ml Intake Oral 400 ml 480 ml IV Total 2018 ml 50 ml 1800 ml Other 400 ml Output Urine Total 0 ml Emesis 300 ml Estimated Blood Loss 0 ml # Voids 5 1 1 # Bowel Movements 5 Result Diagram: 10/09/16 0455 10/09/16 0455 A/P Assessment and Plan RLQ pain: Improving Most likely acute pancreatitis, related to high triglyceride levels Lipase levels elevated though improved from 602 to 576 tolerating liquid diet, advance to soft foods IV morphine for pain Nausea: Zofran now, consider Compazine if not improved Hypercholesterolemia: -statin therapy Elevated transaminases: Waiting for liver U/S report enzymes improving AST: 168 to 111 ALT: 289 to 251 Hypertriglyceridemia: -statin therapy Type 2 diabetes mellitus: HbA1c of 10.1 Holding Metformin for now, started on sliding scale insulin Discussed lifestyle changes Obesity: Lifestyle modifications Tobacco use: Discussed cessation Dung Yepez October 09, 2016 08:45 Sean Key MD October 09, 2016 16:31
[2016-10-09] MEDS: SODIUM CHLORIDE 0.9% FLUSH 10 ML FLUSH IV FLUSH SCH ×2 (09:00→19:48)
[2016-10-09] MEDS ORDERED: INSULIN DETEMIR 100 UNITS/ML VIAL SQ SCH (10:15)
--- NOTE | 2016-10-09 11:31 | HHI.GIFU ---
Subjective Remarks Patient is resting in bed, reports the pain is much better, still with nausea but no vomiting. (Juni Muñoz) Objective Vitals I&O Vital Signs Date Time Temp Pulse Resp B/P Pulse Ox O2 Delivery O2 Flow Rate FiO2 10/09/16 08:00 98.0 69 18 126/74 97 10/09/16 05:20 96.7 76 18 118/69 96 10/09/16 00:00 96.8 87 17 112/68 96 10/08/16 20:00 97.7 80 17 118/67 98 10/08/16 16:17 97.5 78 20 121/76 97 10/08/16 12:22 97.4 83 20 119/90 97 10/08/16 11:30 97.8 84 16 115/61 98 I/O 10/08/16 10/08/16 10/08/16 10/09/16 10/09/16 10/09/16 07:00 15:00 23:00 07:00 15:00 23:00 Intake Total 2018 ml 850 ml 2280 ml Output Total 300 ml 0 ml Balance 1718 ml 850 ml 2280 ml Intake Oral 400 ml 480 ml IV Total 2018 ml 50 ml 1800 ml Other 400 ml Output Urine Total 0 ml Emesis 300 ml Estimated Blood Loss 0 ml # Voids 5 1 1 # Bowel Movements 5 Laboratory Laboratory Tests Test 10/09/16 04:55 White Blood Count 4.9 Red Blood Count 4.84 Hemoglobin 14.7 Hematocrit 42.8 Mean Corpuscular Volume 88.5 Mean Corpuscular Hemoglobin 30.4 Mean Corpuscular Hemoglobin 34.3 Concent Red Cell Distribution Width 13.0 Platelet Count 202 Mean Platelet Volume 7.2 Sodium Level 140 Potassium Level 3.9 Chloride Level 109 Carbon Dioxide Level 22.0 Anion Gap 9 Blood Urea Nitrogen 7 Creatinine 0.50 Estimat Glomerular Filtration 181 Rate Random Glucose 151 Calcium Level 7.9 Total Bilirubin 0.7 Aspartate Amino Transf 111 (AST/SGOT) Alanine Aminotransferase 251 (ALT/SGPT) Alkaline Phosphatase 126 Total Protein 5.4 Albumin 2.8 Lipase 576 Imaging Last Impressions Liver Ultrasound 10/08/16 0000 Signed Impressions: Service Date/Time: Saturday, October 08, 2016 08:36 - CONCLUSION: 1. Hepatomegaly with steatosis. 2. Visualized portions of the pancreas have a normal appearance. Pancreatic tail is not seen. Kaleb Khan MD Abdomen/Pelvis CT 10/07/16 0000 Signed Impressions: Service Date/Time: Friday, October 07, 2016 09:29 - CONCLUSION: No evidence of mesenteric arterial stenosis Kaleb Sarkar MD Physical Exam HEENT: EOMI; normocephalic; atraumatic; no jaundice. CHEST: CTA CARDIAC: RRR ABDOMEN: Soft, nondistended, RLQ TTP; bowel sounds are present in all four quadrants. rebound tenderness EXTREMITIES: No clubbing, cyanosis, or edema. SKIN: Normal; no rash; no jaundice. CONTINUOUS IMPROVEMENT COORDINATOR: No focal deficits; alert and oriented times three. (Juni Muñoz) Assessment and Plan Plan ASSESSMENT - RLQ pain - recent sudden onset sharp RLQ pain with nausea, 1 x vomit. HX intussusception. Patient clinically feeling better However he is having rebound tenderness on palpation, case discussed with Stefan who will consult GS s/p colonoscopy/EGD 10-08-16--> reflux esophagitis, erosive gastritis, erosive duodenitis, incomplete evaluation colon r/t poor prep. CT abd unremarkable, finding were D/w Dr Coon, pancreas normal, poss mild hepatic steatosis, no thickened loops colon to indicate ischemia. - elevated lipase - trending down, 576 today. likely secondary to hypertriglyceridemia, 1156. PT has been started on Pravastatin - elevated LFTs - seem to be improving, slight elevation of ALP 126 AST 111, ALT 251. US liver ---> 1. Hepatomegaly with steatosis. 2. Visualized portions of the pancreas have a normal appearance. Pancreatic tail is not seen. Hep panel negative, rest of work up pending PLAN - continue statin therapy - clear liquids - Agree with GS consult - avoid NSAIDs -supportive care - colonoscopy in 1-2 m This pt seen by myself and Dr Ruiz and this note is written on his behalf (Juni Muñoz) Physician Comments Patient seen and examined Agree with above Continue with current supportive care Monitor labs (Jose Ruiz MD) Juni Muñoz October 09, 2016 11:31 Jose Ruiz MD October 09, 2016 19:13
[2016-10-09] MEDS: HEPARIN SODIUM - SQ 10,000 UNITS/ML VIAL SQ SCH ×2 (11:50→19:44)
[2016-10-09 12:00] VITALS: BP 129/86; PULSE 72; RESP 18; TEMP 97; O2SAT 97
[2016-10-09] MEDS: SODIUM CHLOR 0.9% 1000 ML INJ 1,000 ML IV SCH ×3 (12:06→22:40)
[2016-10-09] MEDS ORDERED: INSULIN ASPART 1,000 UNITS/10 ML VIAL SQ SCH (13:30)
--- NOTE | 2016-10-09 15:31 | PD.CAR.PN ---
CVT Progress Note Subjective/Hospital Course: Patient seen and evaluated Full consult dictated Thanks Olvin Objective: Vital Signs Date Time Temp Pulse Resp B/P Pulse Ox O2 Delivery O2 Flow Rate FiO2 10/09/16 12:00 97.0 72 18 129/86 97 10/09/16 08:00 98.0 69 18 126/74 97 10/09/16 05:20 96.7 76 18 118/69 96 10/09/16 00:00 96.8 87 17 112/68 96 10/08/16 20:00 97.7 80 17 118/67 98 10/08/16 16:17 97.5 78 20 121/76 97 Labs: Laboratory Tests Test 10/09/16 04:55 White Blood Count 4.9 TH/MM3 (4.0-11.0) Red Blood Count 4.84 MIL/MM3 (4.50-5.90) Hemoglobin 14.7 GM/DL (13.0-17.0) Hematocrit 42.8 % (39.0-51.0) Mean Corpuscular Volume 88.5 FL (80.0-100.0) Mean Corpuscular Hemoglobin 30.4 PG (27.0-34.0) Mean Corpuscular Hemoglobin 34.3 % Concent (32.0-36.0) Red Cell Distribution Width 13.0 % (11.6-17.2) Platelet Count 202 TH/MM3 (150-450) Mean Platelet Volume 7.2 FL (7.0-11.0) Sodium Level 140 MEQ/L (136-145) Potassium Level 3.9 MEQ/L (3.5-5.1) Chloride Level 109 MEQ/L (98-107) Carbon Dioxide Level 22.0 MEQ/L (21.0-32.0) Anion Gap 9 MEQ/L (5-15) Blood Urea Nitrogen 7 MG/DL (7-18) Creatinine 0.50 MG/DL (0.60-1.30) Estimat Glomerular Filtration 181 ML/MIN Rate (>89) Random Glucose 151 MG/DL (74-106) Calcium Level 7.9 MG/DL (8.5-10.1) Total Bilirubin 0.7 MG/DL (0.2-1.0) Aspartate Amino Transf 111 U/L (15-37) (AST/SGOT) Alanine Aminotransferase 251 U/L (12-78) (ALT/SGPT) Alkaline Phosphatase 126 U/L (45-117) Total Protein 5.4 GM/DL (6.4-8.2) Albumin 2.8 GM/DL (3.4-5.0) Lipase 576 U/L (73-393) Result Diagram: 10/09/16 0455 10/09/16 0455 Jane Dent MD October 09, 2016 3:31 pm
[2016-10-09 16:00] VITALS: BP 137/80; PULSE 70; RESP 20; TEMP 97.2; O2SAT 97
--- NOTE | 2016-10-09 16:49 | HHI.PR ---
Subjective Remarks deferred entry - patient seen at 11:45 am Patient states taht pain in RLQ is improving although he seems in pain denies cp/sob felt nauseous earlier today but improved after zofran afebrile with stable vital signs tolerating liquid diet Blood sugars noted to be very elevated. Objective Vitals Vital Signs Date Time Temp Pulse Resp B/P Pulse Ox O2 Delivery O2 Flow Rate FiO2 10/09/16 12:00 97.0 72 18 129/86 97 10/09/16 08:00 98.0 69 18 126/74 97 10/09/16 05:20 96.7 76 18 118/69 96 10/09/16 00:00 96.8 87 17 112/68 96 10/08/16 20:00 97.7 80 17 118/67 98 I/O 10/08/16 10/08/16 10/08/16 10/09/16 10/09/16 10/09/16 07:00 15:00 23:00 07:00 15:00 23:00 Intake Total 2018 ml 850 ml 2280 ml Output Total 300 ml 0 ml 1100 ml Balance 1718 ml 850 ml 1180 ml Intake Oral 400 ml 480 ml IV Total 2018 ml 50 ml 1800 ml Other 400 ml Output Urine Total 0 ml 1100 ml Emesis 300 ml Estimated Blood Loss 0 ml # Voids 5 1 1 # Bowel Movements 5 Result Diagram: 10/09/16 0455 10/09/16 0455 Imaging Last Impressions Liver Ultrasound 10/08/16 0000 Signed Impressions: Service Date/Time: Saturday, October 08, 2016 08:36 - CONCLUSION: 1. Hepatomegaly with steatosis. 2. Visualized portions of the pancreas have a normal appearance. Pancreatic tail is not seen. Kaleb Khan MD Abdomen/Pelvis CT 10/07/16 0000 Signed Impressions: Service Date/Time: Friday, October 07, 2016 09:29 - CONCLUSION: No evidence of mesenteric arterial stenosis Kaleb Sarkar MD Objective Remarks GENERAL: This is a well-nourished, well-developed patient, in no apparent distress. SKIN: No rashes, ecchymoses or lesions. Cool and dry. HEAD: Atraumatic. Normocephalic. No temporal or scalp tenderness. EYES: Pupils equal round and reactive. Extraocular motions intact. No scleral icterus. No injection or drainage. ENT: Nose without bleeding, purulent drainage or septal hematoma. Throat without erythema, tonsillar hypertrophy or exudate. Uvula midline. Airway patent. NECK: Trachea midline. No JVD or lymphadenopathy. Supple, nontender, no meningeal signs. CARDIOVASCULAR: Regular rate and rhythm without murmurs, gallops, or rubs. RESPIRATORY: Clear to auscultation. Breath sounds equal bilaterally. No wheezes , rales, or rhonchi. GASTROINTESTINAL: Abdomen soft, tender to palpation of the right lower quadrant and epigastric region, nondistended. No hepato-splenomegaly, or palpable masses. No guarding. MUSCULOSKELETAL: Extremities without clubbing, cyanosis, or edema. No joint tenderness, effusion, or edema noted. No calf tenderness. Negative Homans sign bilaterally. NEUROLOGICAL: Awake and alert. Cranial nerves II through XII intact. Motor and sensory grossly within normal limits. Five out of 5 muscle strength in all muscle groups. Normal speech. Medications and IVs Current Medications Medications (Trade) Dose Ordered Sig/Marshal Route Start Time Stop Time Status Last Admin (NS 1000 ml Inj) 1,000 ml @ 150 mls/hr Q6H40M IV 10/07/16 10:03 10/09/16 12:06 (NS Flush) 2 ml UNSCH PRN IV FLUSH 10/07/16 10:15 (NS Flush) 2 ml BID IV FLUSH 10/07/16 21:00 10/08/16 07:56 (Tylenol) 650 mg Q4H PRN PO 10/07/16 10:15 (Zofran Inj) 4 mg Q6H PRN IVP 10/07/16 10:15 10/09/16 08:42 (Heparin Inj) 5,000 units Q8H SQ 10/07/16 11:00 10/09/16 11:50 (Morphine Inj) 2 mg Q3H PRN IV PUSH 10/07/16 10:15 (Morphine Inj) 4 mg Q3H PRN IV PUSH 10/07/16 10:15 10/09/16 12:05 (D50w (Vial) Inj) 50 ml UNSCH PRN IV 10/07/16 10:45 (Glucagon Inj) 1 mg UNSCH PRN OTHER 10/07/16 10:45 (Pravachol) 20 mg DAILY PO 10/07/16 19:15 10/09/16 08:43 (Protonix) 40 mg BID PO 10/08/16 12:00 10/09/16 08:43 (Levemir Inj) 5 units BID SQ 10/09/16 21:00 Urinary Catheter: No Vascular Central Line Catheter: No A/P Problem List: (1) RLQ abdominal pain ICD Code: R10.31 Status: Acute (2) Nausea & vomiting ICD Code: R11.2 Status: Acute (3) Diarrhea ICD Code: R19.7 Status: Resolved (4) Elevated lipase ICD Code: R74.8 Status: Acute (5) Diabetes mellitus with hyperglycemia ICD Code: E11.65 Status: Acute (6) Hypertriglyceridemia ICD Code: E78.1 Status: Acute (7) Transaminitis ICD Code: R74.0 Status: Acute Assessment and Plan (1) RLQ abdominal pain Plan: 41 yo male presents with epigastric abdominal pain which later localized in right lower quadrant proceeded with nausea vomiting and diarrhea. CT abdomen and pelvis initially obtained in the [facility] showed scattered diverticula with some degree of spasm of sigmoid colon an underlying mass difficult to exclude. However repeat CT abdomen and pelvis with IV contrast obtained in [facility] did not show any evidence of mesenteric arterial stenosis or does not mention any evidence of mass. Still unclear etiology of the abdominal pain, however differential diagnosis includes gastroenteritis, colitis, mass, resolved intussusception, mild pancreatitis. Patient was admitted to the medical floor, placed on IV fluids, kept nothing by mouth, GI consulted, underwent EGD/colonoscopy on 10/08 which found erosive gastritis and hiatal hernia. Patient placed on Protonix 40 mg by mouth twice a day. Continue. 10/09 continue pain control with IV morphine, continue PPI, continue to follow- up GI recommendations. Patient still with significant right lower quadrant abdominal pain and rebound tenderness. I will consult general surgery and keep the patient nothing by mouth for now. This was discussed with Juni Muñoz GI LEARNING AND DEVELOPMENT OFFICER. (2) Nausea & vomiting Plan: Now resolved. Continue IV Zofran (3) Diarrhea Plan: Patient also complaining of diarrhea previous to presentation. Denies any further episodes of diarrhea here in the hospital. (4) Elevated lipase Plan: Elevated lipase at 1452. Elevated lipase could be secondary to gastritis , peptic ulcer disease, anything upsetting the GI tract, secondary to elevated triglycerides. Continue to monitor lipase. 10/08 lipase is trending down. Now 602. (5) Diabetes mellitus with hyperglycemia Plan: Hold metformin. Patient blood sugar in the mid 200s. I will place patient on SSI with insulin NovoLog and continue to monitor Accu-Cheks. Check hemoglobin A1c. 10/08 hemoglobin A1c 10.1. Diabetes uncontrolled. The patient will need to be started on insulin and will likely need to be discharged on insulin. 10/09 blood sugar very elevated and uncontrolled. I will start the patient on basal bolus therapy with insulin Levemir and insulin NovoLog and adjust it accordingly. Continue SSI with insulin NovoLog. (6) Hypertriglyceridemia Plan: Lipid profile showed triglycerides of 1156, cholesterol 264 and HDL cholesterol of 21.8 Continue pravastatin. (7) Transaminitis Plan: Patient with elevated function test with an AST of 173 and ALTs of 110 on presentation to the ED. liver function tests trending up. Liver ultrasound showed hepatomegaly with steatosis. Visualized portion of the pancreas have a normal appearance. Pancreatic tail is not seen. Hepatitis profile negative. Continue to monitor liver function tests. 10/09 transaminases continued to trend down. Continue to monitor LFTs. Assessment and Plan GI prophylaxis: PPI DVT prophylaxis: Place on SCDs, heparin subcutaneous. Discharge Planning Continue to monitor and the medical floor. Problem Qualifiers (1) Nausea & vomiting: Qualified Code: R11.2 - Non-intractable vomiting with nausea, unspecified vomiting type (2) Diarrhea: Qualified Code: R19.7 - Diarrhea, unspecified type Sean Key MD October 09, 2016 16:49
--- NOTE | 2016-10-09 17:49 | MB ---
cc: MD [facility] DATE OF CONSULTATION 10/09/[address] Dent REASON FOR CONSULTATION Abdominal pain, diverticulosis, diabetes mellitus. HISTORY OF PRESENT DISEASE This 41-year-old male with known diabetes mellitus presents 2 days ago with severe, what he states as severe abdominal pain that was mainly in the epigastrium then descended down in the right lower quadrant. The patient's pain was sharp and stabbing and came and went. The pain was associated some diarrhea and the patient vomited once. The patient is now in the process of workup and up to now the workup has been negative, hence the surgical consultation. He also states that in 2002 he had some sort of intussusception, did resolve on its own and pain was quite similar. PAST SURGICAL HISTORY Past surgical history is that of cholecystectomy, mastoidectomy. PAST MEDICAL HISTORY Medical history is of diabetes mellitus, hypertension. SOCIAL HISTORY The patient does not drink. Smokes about a pack a day. PHYSICAL EXAMINATION GENERAL: Physical examination reveals a 41-year-old male in no acute distress. HEENT Normocephalic. No trauma to the head. Pupils equally reactive. Extraocular muscles intact. NECK: Neck is supple. Bilateral carotid pulses. No bruits. CHEST: Chest is clear, bilateral breath sounds. HEART: Regular rhythm. ABDOMEN: Soft. Active bowel sounds. No rebound or guarding. No masses. On palpation the patient has guarding voluntarily in both lower quadrants somewhat but there are no masses palpable or no suspicious findings. Groins are normal. No hernias noted. EXTREMITIES: The patient has bilateral femoral popliteal, dorsalis, pedis, posterior tibial pulses. He has normal capillary refill. No signs of vascular deficit. BACK: Back is normal. NEUROLOGICALLY: The patient is fully intact. IMPRESSION/RECOMMENDATIONS I reviewed laboratory, diagnostic procedures. This gentleman had some sort of a pain that started 2 days ago. The patient feels better now but on deep palpation is chemicals distiller in the right lower quadrant. As far as intestinal problems are concerned he had an upper endoscopy which was essentially negative and then sort of half colonoscopy because of the amount of retained stool but again this showed only diverticulosis. I do not suspect the patient has acute appendicitis. While acute appendicitis is the usual presentation there is an occasional patient that presents with subchronic or chronic appendicitis which is characterized by bouts of right lower quadrant pain and finally patients have appendectomy, pain goes away so diagnosis is made respectively. I do not believe this is the case in this gentleman. I do not see anything wrong with his appendix, there is no inflammation right lower quadrant and no problem there. History and description of his pain does not account for the same. Possibly the patient is passing a urethral stone and once in the bladder the pain subsided. 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 I do not see a UA on the patient so will order one. Patient has elevated lipase as well as triglycerides so he may be developing subacute pancreatitis from hyperlipidemia, frequently seen in modern urban society. The patient should have full colonoscopy as an outpatient and when that is done I will have him follow up with me in the office. Either way I do not see any surgical condition that would require operative intervention. I thank you very much for your referral. Jane GREENBERG /3:28 PM /5:24 PM ABI
[2016-10-09 19:11] LABS: BLOOD, URINE NEG (NEG); GLUCOSE,URINE NEG (NEG); KETONE, URINE 10 mg/dL (NEG); MUCUS URINE FEW /lpf (OCC); NITRITE,URINE NEG (NEG); PH, URINE 6.5 (5.0-8.5); URINE COLOR YELLOW (YELLW/STRAW)
[2016-10-09 20:00] VITALS: BP 128/82; PULSE 73; RESP 17; TEMP 97.4; O2SAT 97
[2016-10-09] MEDS: INSULIN DETEMIR 100 UNITS/ML VIAL SQ SCH (20:02)
[2016-10-10] VITALS: BP 124/76; PULSE 80; RESP 17; TEMP 97.6; O2SAT 97
[2016-10-10] MEDS: HEPARIN SODIUM - SQ 10,000 UNITS/ML VIAL SQ SCH ×3 (02:18→17:52)
[2016-10-10] MEDS: MORPHINE SULFATE 4 MG/ML INJ IV PUSH PRN ×8 (02:18→21:23)
[2016-10-10] MEDS: PROCHLORPERAZINE INJ 10 MG/2 ML VIAL IV PUSH PRN ×2 (02:18→17:57)
[2016-10-10 04:00] VITALS: BP 106/67; PULSE 67; RESP 18; TEMP 96.6; O2SAT 95
[2016-10-10] MEDS: SODIUM CHLOR 0.9% 1000 ML INJ 1,000 ML IV SCH ×3 (05:34→18:03)
[2016-10-10] MEDS: INSULIN ASPART SUPPLEMENTAL SCALE SQ SCH ×4 (05:34→21:32)
[2016-10-10 08:00] VITALS: BP 132/70; PULSE 73; RESP 16; TEMP 96.5; O2SAT 98
[2016-10-10] MEDS: PANTOPRAZOLE SOD 40 MG DELAYED RELEASE TAB PO SCH ×2 (08:23→20:24)
[2016-10-10] MEDS: PRAVASTATIN SOD 20 MG TAB PO SCH (08:23)
[2016-10-10] MEDS: INSULIN DETEMIR 100 UNITS/ML VIAL SQ SCH ×2 (08:26→21:32)
[2016-10-10] MEDS: SODIUM CHLORIDE 0.9% FLUSH 10 ML FLUSH IV FLUSH SCH ×2 (08:28→20:24)
--- NOTE | 2016-10-10 09:23 | PD.PN.STU ---
Subjective Remarks new complaint of dysuria RLQ pain is 7/10, says morphine is not lasting very long had nausea last night and 2x vomitus having liquid BMs he wants to advance diet to soft foods Objective Vitals GENERAL: This is a well-nourished, well-developed patient, in no apparent distress. SKIN: No rashes, ecchymoses or lesions. Cool and dry. HEAD: Atraumatic. Normocephalic. No temporal or scalp tenderness. EYES: Pupils equal round and reactive. Extraocular motions intact. No scleral icterus. No injection or drainage. ENT: Nose without bleeding, purulent drainage or septal hematoma. Throat without erythema, tonsillar hypertrophy or exudate. Uvula midline. Airway patent. NECK: Trachea midline. No JVD or lymphadenopathy. Supple, nontender, no meningeal signs. CARDIOVASCULAR: Regular rate and rhythm without murmurs, gallops, or rubs. RESPIRATORY: Clear to auscultation. Breath sounds equal bilaterally. No wheezes , rales, or rhonchi. GASTROINTESTINAL: Abdomen soft, tender to palpation of the right lower quadrant and epigastric region, nondistended. No hepato-splenomegaly, or palpable masses. No guarding. MUSCULOSKELETAL: Extremities without clubbing, cyanosis, or edema. No joint tenderness, effusion, or edema noted. No calf tenderness. Negative Homans sign bilaterally. Vital Signs Date Time Temp Pulse Resp B/P Pulse Ox O2 Delivery O2 Flow Rate FiO2 10/10/16 08:00 96.5 73 16 132/70 98 10/10/16 04:00 96.6 67 18 106/67 95 10/10/16 00:00 97.6 80 17 124/76 97 10/09/16 20:00 97.4 73 17 128/82 97 10/09/16 16:00 97.2 70 20 137/80 97 10/09/16 12:00 97.0 72 18 129/86 97 I/O 10/09/16 10/09/16 10/09/16 10/10/16 10/10/16 10/10/16 07:00 15:00 23:00 07:00 15:00 23:00 Intake Total 2280 ml 1184 ml 720 ml 1800 ml Output Total 1100 ml Balance 1180 ml 1184 ml 720 ml 1800 ml Intake Oral 480 ml 720 ml IV Total 1800 ml 1184 ml 1800 ml Output Urine Total 1100 ml # Voids 1 2 Result Diagram: 10/09/16 0455 10/09/16 0455 A/P Assessment and Plan RLQ pain: Acute pancreatitis vs intussusception vs ? Seen by surgery, does not suspect appendicitis Lipase levels elevated though improved from 602 to 576 tolerating liquid diet, advance to soft foods IV morphine for pain Dysuria: Order bladder scan Nausea: Zofran now, consider Compazine if not improved Hypercholesterolemia: -statin therapy Elevated transaminases: Waiting for liver U/S report enzymes improving AST: 168 to 111 ALT: 289 to 251 Hypertriglyceridemia: -statin therapy Type 2 diabetes mellitus: HbA1c of 10.1 Holding Metformin for now, started on sliding scale insulin Discussed lifestyle changes Obesity: Lifestyle modifications Tobacco use: Discussed cessation Dung Yepez October 10, 2016 09:23 Sean Key MD October 10, 2016 13:41
[2016-10-10 11:51] LABS: HEMATOCRIT 46.9 % (39.0-51.0); MEAN CELL VOLUME 88.1 FL (80.0-100.0); MEAN CORPUSCULAR HEMOGLOBIN 30.4 PG (27.0-34.0); MEAN CORPUSCULAR HGB CONC 34.5 % (32.0-36.0); PLATELET COUNT 202 TH/MM3 (150-450); RED BLOOD COUNT 5.33 MIL/MM3 (4.50-5.90); RED CELL DISTRIBUTION WIDTH 13.2 % (11.6-17.2); REVIEW FLAG FINAL; WHITE BLOOD COUNT 5.1 TH/MM3 (4.0-11.0)
[2016-10-10 12:00] VITALS: BP 135/81; PULSE 78; RESP 16; TEMP 98.2; O2SAT 98
[2016-10-10 12:17] LABS: ALKALINE PHOSPHATASE 132 U/L (45-117); ALT (GPT) 205 U/L (12-78); ANION GAP 7 MEQ/L (5-15); AST (GOT) 73 U/L (15-37); BICARBONATE 23.4 MEQ/L (21.0-32.0); BLOOD UREA NITROGEN 4 MG/DL (7-18); CHLORIDE 109 MEQ/L (98-107); GLOMERULAR FILTRATION RATE 147 ML/MIN (>89); POTASSIUM 3.7 MEQ/L (3.5-5.1); SODIUM (NA) 139 MEQ/L (136-145); TOTAL BILIRUBIN ADULT 0.8 MG/DL (0.2-1.0); TRANSFERRIN IRON PROFILE 269 MG/DL (200-360)
--- NOTE | 2016-10-10 13:22 | PD.CAR.PN ---
CVT Progress Note Subjective/Hospital Course: Patient seen and evaluated Full consult dictated Thanks J 10/10/16 Patient with nonspecific abdominal pain in the epigastrium midabdomen than the right lower quadrant and very hard to quantify No guarding some rebound at this time pain only and deep palpation, no masses Patient clearly does not have appendicitis and I agree with medicine as far as ordering Salmonella Shigella titers as well as assessing for unusual causes including intestinal parasites Amylase and lipase are elevated and on the way down. Patient has very pronounced hyperlipidemia so it would not be unusual if patient developed subacute pancreatitis due to significant hyperlipidemia Either way this is not a surgical condition and patient will not require surgery unless something unexpected comes up Objective: Vital Signs Date Time Temp Pulse Resp B/P Pulse Ox O2 Delivery O2 Flow Rate FiO2 10/10/16 12:00 98.2 78 16 135/81 98 10/10/16 08:00 96.5 73 16 132/70 98 10/10/16 04:00 96.6 67 18 106/67 95 10/10/16 00:00 97.6 80 17 124/76 97 10/09/16 20:00 97.4 73 17 128/82 97 10/09/16 16:00 97.2 70 20 137/80 97 Labs: Laboratory Tests Test 10/10/16 11:15 White Blood Count 5.1 TH/MM3 (4.0-11.0) Red Blood Count 5.33 MIL/MM3 (4.50-5.90) Hemoglobin 16.2 GM/DL (13.0-17.0) Hematocrit 46.9 % (39.0-51.0) Mean Corpuscular Volume 88.1 FL (80.0-100.0) Mean Corpuscular Hemoglobin 30.4 PG (27.0-34.0) Mean Corpuscular Hemoglobin 34.5 % Concent (32.0-36.0) Red Cell Distribution Width 13.2 % (11.6-17.2) Platelet Count 202 TH/MM3 (150-450) Mean Platelet Volume 7.2 FL (7.0-11.0) Hematology Comments Sodium Level 139 MEQ/L (136-145) Potassium Level 3.7 MEQ/L (3.5-5.1) Chloride Level 109 MEQ/L (98-107) Carbon Dioxide Level 23.4 MEQ/L (21.0-32.0) Anion Gap 7 MEQ/L (5-15) Blood Urea Nitrogen 4 MG/DL (7-18) Creatinine 0.60 MG/DL (0.60-1.30) Estimat Glomerular Filtration 147 ML/MIN Rate (>89) Random Glucose 167 MG/DL (74-106) Calcium Level 8.6 MG/DL (8.5-10.1) Iron Level 102 MCG/DL (65-175) Total Iron Binding Capacity 377 MCG/DL (250-450) Percent Iron Saturation 27.1 % (20-50) Total Bilirubin 0.8 MG/DL (0.2-1.0) Aspartate Amino Transf 73 U/L (15-37) (AST/SGOT) Alanine Aminotransferase 205 U/L (12-78) (ALT/SGPT) Alkaline Phosphatase 132 U/L (45-117) Total Protein 6.1 GM/DL (6.4-8.2) Albumin 3.1 GM/DL (3.4-5.0) Lipase 215 U/L (73-393) Result Diagram: 10/10/16 1115 10/10/16 1115 Jane Dent MD October 10, 2016 13:22
--- NOTE | 2016-10-10 13:53 | HHI.PR ---
Subjective Remarks Patient still has significant RLQ abdominal pain c/o difficulty with urination, nausea and vomiting x2 last night denies cp/sob denies fevers/chills afebrile with stable vital signs Objective Vitals Vital Signs Date Time Temp Pulse Resp B/P Pulse Ox O2 Delivery O2 Flow Rate FiO2 10/10/16 12:00 98.2 78 16 135/81 98 10/10/16 08:00 96.5 73 16 132/70 98 10/10/16 04:00 96.6 67 18 106/67 95 10/10/16 00:00 97.6 80 17 124/76 97 10/09/16 20:00 97.4 73 17 128/82 97 10/09/16 16:00 97.2 70 20 137/80 97 I/O 10/09/16 10/09/16 10/09/16 10/10/16 10/10/16 10/10/16 07:00 15:00 23:00 07:00 15:00 23:00 Intake Total 2280 ml 1184 ml 720 ml 1800 ml Output Total 1100 ml 400 ml Balance 1180 ml 1184 ml 720 ml 1800 ml -400 ml Intake Oral 480 ml 720 ml IV Total 1800 ml 1184 ml 1800 ml Output Urine Total 1100 ml 400 ml # Voids 1 2 Result Diagram: 10/10/16 1115 10/10/16 1115 Imaging Last Impressions Liver Ultrasound 10/08/16 0000 Signed Impressions: Service Date/Time: Saturday, October 08, 2016 08:36 - CONCLUSION: 1. Hepatomegaly with steatosis. 2. Visualized portions of the pancreas have a normal appearance. Pancreatic tail is not seen. Kaleb Khan MD Abdomen/Pelvis CT 10/07/16 0000 Signed Impressions: Service Date/Time: Friday, October 07, 2016 09:29 - CONCLUSION: No evidence of mesenteric arterial stenosis Kaleb Sarkar MD Objective Remarks GENERAL: This is a well-nourished, well-developed patient, in no apparent distress. SKIN: No rashes, ecchymoses or lesions. Cool and dry. HEAD: Atraumatic. Normocephalic. No temporal or scalp tenderness. EYES: Pupils equal round and reactive. Extraocular motions intact. No scleral icterus. No injection or drainage. ENT: Nose without bleeding, purulent drainage or septal hematoma. Throat without erythema, tonsillar hypertrophy or exudate. Uvula midline. Airway patent. NECK: Trachea midline. No JVD or lymphadenopathy. Supple, nontender, no meningeal signs. CARDIOVASCULAR: Regular rate and rhythm without murmurs, gallops, or rubs. RESPIRATORY: Clear to auscultation. Breath sounds equal bilaterally. No wheezes , rales, or rhonchi. GASTROINTESTINAL: Abdomen soft, tender to palpation of the right lower quadrant and epigastric region, nondistended. No hepato-splenomegaly, or palpable masses. No guarding. MUSCULOSKELETAL: Extremities without clubbing, cyanosis, or edema. No joint tenderness, effusion, or edema noted. No calf tenderness. Negative Homans sign bilaterally. NEUROLOGICAL: Awake and alert. Cranial nerves II through XII intact. Motor and sensory grossly within normal limits. Five out of 5 muscle strength in all muscle groups. Normal speech. Medications and IVs Current Medications Medications (Trade) Dose Ordered Sig/Marshal Route Start Time Stop Time Status Last Admin (NS 1000 ml Inj) 1,000 ml @ 150 mls/hr Q6H40M IV 10/07/16 10:03 10/10/16 11:23 (NS Flush) 2 ml UNSCH PRN IV FLUSH 10/07/16 10:15 (NS Flush) 2 ml BID IV FLUSH 10/07/16 21:00 10/08/16 07:56 (Tylenol) 650 mg Q4H PRN PO 10/07/16 10:15 (Zofran Inj) 4 mg Q6H PRN IVP 10/07/16 10:15 10/09/16 22:39 (Heparin Inj) 5,000 units Q8H SQ 10/07/16 11:00 10/10/16 11:40 (Morphine Inj) 2 mg Q3H PRN IV PUSH 10/07/16 10:15 (Morphine Inj) 4 mg Q3H PRN IV PUSH 10/07/16 10:15 10/10/16 11:41 (D50w (Vial) Inj) 50 ml UNSCH PRN IV 10/07/16 10:45 (Glucagon Inj) 1 mg UNSCH PRN OTHER 10/07/16 10:45 (Pravachol) 20 mg DAILY PO 10/07/16 19:15 10/10/16 08:23 (Protonix) 40 mg BID PO 10/08/16 12:00 10/10/16 08:23 (Levemir Inj) 5 units BID SQ 10/09/16 21:00 10/10/16 08:26 (Compazine Inj) 5 mg Q8H PRN IV PUSH 10/10/16 00:15 10/11/16 00:14 10/10/16 02:18 Urinary Catheter: No Vascular Central Line Catheter: No A/P Problem List: (1) RLQ abdominal pain ICD Code: R10.31 Status: Acute (2) Nausea & vomiting ICD Code: R11.2 Status: Acute (3) Diarrhea ICD Code: R19.7 Status: Resolved (4) Elevated lipase ICD Code: R74.8 Status: Acute (5) Diabetes mellitus with hyperglycemia ICD Code: E11.65 Status: Acute (6) Hypertriglyceridemia ICD Code: E78.1 Status: Acute (7) Transaminitis ICD Code: R74.0 Status: Acute Assessment and Plan (1) RLQ abdominal pain Plan: 41 yo male presents with epigastric abdominal pain which later localized in right lower quadrant proceeded with nausea vomiting and diarrhea. CT abdomen and pelvis initially obtained in the [facility] showed scattered diverticula with some degree of spasm of sigmoid colon an underlying mass difficult to exclude. However repeat CT abdomen and pelvis with IV contrast obtained in [facility] did not show any evidence of mesenteric arterial stenosis or does not mention any evidence of mass. Still unclear etiology of the abdominal pain, however differential diagnosis includes gastroenteritis, colitis, mass, resolved intussusception, mild pancreatitis. Patient was admitted to the medical floor, placed on IV fluids, kept nothing by mouth, GI consulted, underwent EGD/colonoscopy on 10/08 which found erosive gastritis and hiatal hernia. Patient placed on Protonix 40 mg by mouth twice a day. Surgery consulted, case discussed with Dr. Cifuentes, no surgery recommended. Differential diagnosis includes referred pain from gastritis, typhlitis from infection due to Yersinia, Salmonella, pancreatitis. No surgical procedure recommended. Patient still with significant pain. I will continue IV morphine and add IV Dilaudid for breakthrough pain since there is still significant pain. Continue PPI and continue to follow-up GI recommendations. Stool studies showed negative cryptosporidium exam as well as stool Giardia antigen. Other stool studies are pending. (2) Nausea & vomiting Plan: Patient had 2 episodes of vomiting the night of 10/09. Continue IV Zofran. Compazine as needed added. (3) Diarrhea Plan: Patient also complaining of diarrhea previous to presentation. Then had period of days without diarrhea. 10/09 Patient c/o diarrhea. Stool studies sent. Results as above. Will check stool for C diff. Place on contact isolation until this is ruled out. (4) Elevated lipase Plan: Elevated lipase at 1452. Elevated lipase could be secondary to gastritis , peptic ulcer disease, anything upsetting the GI tract, secondary to elevated triglycerides. Continue to monitor lipase. 10/08 lipase is trending down. Now 602. (5) Diabetes mellitus with hyperglycemia Plan: Hold metformin. Patient blood sugar in the mid 200s. I will place patient on SSI with insulin NovoLog and continue to monitor Accu-Cheks. Check hemoglobin A1c. 10/08 hemoglobin A1c 10.1. Diabetes uncontrolled. The patient will need to be started on insulin and will likely need to be discharged on insulin. 10/09 blood sugar very elevated and uncontrolled. I will start the patient on basal bolus therapy with insulin Levemir and insulin NovoLog and adjust it accordingly. Continue SSI with insulin NovoLog. 10/10 BS better controlled, continue with the post therapy with insulin Levemir and prandial with insulin NovoLog. Continue SSI with insulin NovoLog as well. Continue to monitor Accu-Cheks. (6) Hypertriglyceridemia Plan: Lipid profile showed triglycerides of 1156, cholesterol 264 and HDL cholesterol of 21.8 Continue pravastatin. (7) Transaminitis Plan: Patient with elevated function test with an AST of 173 and ALTs of 110 on presentation to the ED. liver function tests trending up. Liver ultrasound showed hepatomegaly with steatosis. Visualized portion of the pancreas have a normal appearance. Pancreatic tail is not seen. Hepatitis profile negative. Continue to monitor liver function tests. 10/09 transaminases continued to trend down. Continue to monitor LFTs. Assessment and Plan GI prophylaxis: PPI DVT prophylaxis: Place on SCDs, heparin subcutaneous. Discharge Planning Continue to monitor and the medical floor. Problem Qualifiers (1) Nausea & vomiting: Qualified Code: R11.2 - Non-intractable vomiting with nausea, unspecified vomiting type (2) Diarrhea: Qualified Code: R19.7 - Diarrhea, unspecified type Sean Key MD October 10, 2016 13:52
--- NOTE | 2016-10-10 14:18 | HHI.GIFU ---
Subjective Remarks Pt resting in bed. He still has some n/v, some RLQ pain but not as bad as before. He is asking for diet to be advanced. Last BM yesterday, diarrhea. ( Giin Smith) Objective Vitals I&O Vital Signs Date Time Temp Pulse Resp B/P Pulse Ox O2 Delivery O2 Flow Rate FiO2 10/10/16 12:00 98.2 78 16 135/81 98 10/10/16 08:00 96.5 73 16 132/70 98 10/10/16 04:00 96.6 67 18 106/67 95 10/10/16 00:00 97.6 80 17 124/76 97 10/09/16 20:00 97.4 73 17 128/82 97 10/09/16 16:00 97.2 70 20 137/80 97 I/O 10/09/16 10/09/16 10/09/16 10/10/16 10/10/16 10/10/16 07:00 15:00 23:00 07:00 15:00 23:00 Intake Total 2280 ml 1184 ml 720 ml 1800 ml Output Total 1100 ml 400 ml Balance 1180 ml 1184 ml 720 ml 1800 ml -400 ml Intake Oral 480 ml 720 ml IV Total 1800 ml 1184 ml 1800 ml Output Urine Total 1100 ml 400 ml # Voids 1 2 Laboratory Laboratory Tests Test 10/09/16 10/10/16 18:50 11:15 Urine Color YELLOW Urine Turbidity CLEAR Urine pH 6.5 Urine Specific Belen 1.009 Urine Protein NEG Urine Glucose (UA) NEG Urine Ketones 10 Urine Occult Blood NEG Urine Nitrite NEG Urine Bilirubin NEG Urine Urobilinogen 4.0 Urine Leukocyte Esterase NEG Urine WBC LESS THAN 1 Urine Mucus FEW White Blood Count 5.1 Red Blood Count 5.33 Hemoglobin 16.2 Hematocrit 46.9 Mean Corpuscular Volume 88.1 Mean Corpuscular Hemoglobin 30.4 Mean Corpuscular Hemoglobin 34.5 Concent Red Cell Distribution Width 13.2 Platelet Count 202 Mean Platelet Volume 7.2 Hematology Comments Sodium Level 139 Potassium Level 3.7 Chloride Level 109 Carbon Dioxide Level 23.4 Anion Gap 7 Blood Urea Nitrogen 4 Creatinine 0.60 Estimat Glomerular Filtration 147 Rate Random Glucose 167 Calcium Level 8.6 Iron Level 102 Total Iron Binding Capacity 377 Percent Iron Saturation 27.1 Total Bilirubin 0.8 Aspartate Amino Transf 73 (AST/SGOT) Alanine Aminotransferase 205 (ALT/SGPT) Alkaline Phosphatase 132 Total Protein 6.1 Albumin 3.1 Lipase 215 Date/Time Procedure Status Source Growth 10/09/16 19:00 Cryptosporidium Exam - Final Resulted Stool Stool NEGATIVE - NO CRYPTOSPORIDIUM ANTIGEN... 10/09/16 19:00 Stool Pus ([facility]OBERT) Resulted Stool Stool Pending 10/09/16 19:00 Giardia Antigen ([facility]ERT) - Final Resulted Stool Stool NEGATIVE - NO GIARDIA ANTIGEN DETECTE... 10/09/16 19:00 Received Stool Stool Pending Imaging Last Impressions Liver Ultrasound 10/08/16 0000 Signed Impressions: Service Date/Time: Saturday, October 08, 2016 08:36 - CONCLUSION: 1. Hepatomegaly with steatosis. 2. Visualized portions of the pancreas have a normal appearance. Pancreatic tail is not seen. Kaleb Khan MD Abdomen/Pelvis CT 10/07/16 0000 Signed Impressions: Service Date/Time: Friday, October 07, 2016 09:29 - CONCLUSION: No evidence of mesenteric arterial stenosis Kaleb Sarkar MD Physical Exam HEENT: EOMI; normocephalic; atraumatic; no jaundice. CHEST: CTA CARDIAC: RRR ABDOMEN: Soft, nondistended, RLQ mild TTP; bowel sounds are present in all four quadrants. rebound tenderness EXTREMITIES: No clubbing, cyanosis, or edema. SKIN: Normal; no rash; no jaundice. [address] RO[address]: No focal deficits; alert and oriented times three. (Gini Smith [facility]) Assessment and Plan Plan ASSESSMENT - RLQ pain - recent sudden onset sharp RLQ pain with nausea, 1 x vomit. EGD path indicates H. pylori so will tx for that. HX intussusception. Patient clinically feeling better and requesting diet advancement, will try full liquids and see how he does. GS consulted, do not feel this is appendicitis or surgical. s/p colonoscopy/EGD 10-08-16--> reflux esophagitis, erosive gastritis, erosive duodenitis, incomplete evaluation colon r/t poor prep. CT abd unremarkable, finding were D/w Dr Coon, pancreas normal, poss mild hepatic steatosis, no thickened loops colon to indicate ischemia. - elevated lipase - trending down, 215 today. likely secondary to hypertriglyceridemia, 1156. PT has been started on Pravastatin - elevated LFTs - ALT AST trending down but ALT gradually increasing. US liver ---> 1. Hepatomegaly with steatosis. 2. Visualized portions of the pancreas have a normal appearance. Pancreatic tail is not seen. Hep panel negative, rest of work up pending PLAN -clarithromycin 500mg BID, amoxicillin 1g BID 10 days - continue PPI - continue statin therapy - full liquids - Agree with GS consult - avoid NSAIDs -supportive care - colonoscopy in 1-2 m This pt seen by myself and Dr Ruiz and this note is written on his behalf (Gini Smith) Physician Comments Patient seen and examined Agree with above Continue with current supportive care Monitor labs We will treat his H. pylori (Jose Ruiz MD) Gini Smith October 10, 2016 14:18 Jose Ruiz MD October 10, 2016 18:23
[2016-10-10 16:00] VITALS: BP 128/79; PULSE 82; RESP 18; TEMP 97.9; O2SAT 99
[2016-10-10 20:00] VITALS: BP 138/86; PULSE 70; RESP 18; TEMP 97.9; O2SAT 98
[2016-10-10] MEDS: AMOXICILLIN (TRIHYDRATE) 500 MG CAP PO SCH (20:23)
[2016-10-10] MEDS: CLARITHROMYCIN 500 MG TAB PO SCH (20:24)
[2016-10-10 23:02] LABS: C. DIFF EPI 027 PRESUMPTIVE NEGATIVE (NEGATIVE); C. DIFF TOXIN PCR NEGATIVE (NEGATIVE)
[2016-10-10 23:50] LABS: MITOCHONDRIAL ABS LESS THAN 20.0 U (())
[2016-10-11] VITALS: BP 136/92; PULSE 73; RESP 18; TEMP 97.8; O2SAT 97
[2016-10-11] MEDS: MORPHINE SULFATE 4 MG/ML INJ IV PUSH PRN ×4 (00:13→09:34)
[2016-10-11] MEDS: SODIUM CHLOR 0.9% 1000 ML INJ 1,000 ML IV SCH ×2 (00:43→10:08)
[2016-10-11] MEDS: ONDANSETRON HCL 4 MG/2 ML VIAL IVP PRN (02:46)
[2016-10-11] MEDS: HEPARIN SODIUM - SQ 10,000 UNITS/ML VIAL SQ SCH ×3 (02:50→19:18)
[2016-10-11 04:00] VITALS: BP 135/86; PULSE 60; RESP 16; TEMP 98.1; O2SAT 99
[2016-10-11] MEDS: INSULIN ASPART SUPPLEMENTAL SCALE SQ SCH ×4 (06:32→21:47)
[2016-10-11 08:00] VITALS: BP_SYST 122; BP_SYST 128; BP_DIAS 78; BP_DIAS 86; PULSE 57; RESP 16; TEMP 98; O2SAT 98
--- NOTE | 2016-10-11 08:34 | PD.PN.STU ---
Subjective Remarks RLQ pain improving - pt reports 2/10 still having nausea/vomiting - gets relief with Zofran and Compazine tolerated soft food diet liquid BMs feeling anxious due to sitting in bed all day denies CP, SOB stool sample negative liver enzymes and lipase improving vitals stable Objective Vitals GENERAL: This is a well-nourished, well-developed patient, in no apparent distress. SKIN: No rashes, ecchymoses or lesions. Cool and dry. HEAD: Atraumatic. Normocephalic. No temporal or scalp tenderness. EYES: Pupils equal round and reactive. Extraocular motions intact. No scleral icterus. No injection or drainage. ENT: Nose without bleeding, purulent drainage or septal hematoma. Throat without erythema, tonsillar hypertrophy or exudate. Uvula midline. Airway patent. NECK: Trachea midline. No JVD or lymphadenopathy. Supple, nontender, no meningeal signs. CARDIOVASCULAR: Regular rate and rhythm without murmurs, gallops, or rubs. RESPIRATORY: Clear to auscultation. Breath sounds equal bilaterally. No wheezes , rales, or rhonchi. GASTROINTESTINAL: Abdomen soft, tender to palpation of the right lower quadrant and epigastric region, nondistended. No hepato-splenomegaly, or palpable masses. No guarding. MUSCULOSKELETAL: Extremities without clubbing, cyanosis, or edema. No joint tenderness, effusion, or edema noted. No calf tenderness. Negative Homans sign bilaterally. NEUROLOGICAL: Awake and alert. Cranial nerves II through XII intact. Motor and sensory grossly within normal limits. Five out of 5 muscle strength in all muscle groups. Normal speech. Vital Signs Date Time Temp Pulse Resp B/P Pulse Ox O2 Delivery O2 Flow Rate FiO2 10/11/16 06:43 20 10/11/16 04:00 98.1 60 16 135/86 99 10/11/16 00:54 20 10/11/16 00:00 97.8 73 18 136/92 97 10/10/16 20:00 97.9 70 18 138/86 98 10/10/16 16:00 97.9 82 18 128/79 99 10/10/16 12:00 98.2 78 16 135/81 98 I/O 10/10/16 10/10/16 10/10/16 10/11/16 10/11/16 10/11/16 07:00 15:00 23:00 07:00 15:00 23:00 Intake Total 1800 ml 960 ml 607 ml 960 ml Output Total 1500 ml 980 ml Balance 1800 ml -540 ml -373 ml 960 ml Intake Oral 960 ml 240 ml 960 ml IV Total 1800 ml 367 ml Output Urine Total 1500 ml 980 ml Bladder Scan Volume Amount 300 ml # Voids 2 1 4 # Bowel Movements 2 Result Diagram: 10/10/16 1115 10/10/16 111 A/P Assessment and Plan RLQ pain: Acute pancreatitis vs intussusception vs viral gastroenteritis vs colitis Seen by surgery, does not suspect appendicitis Lipase levels improved from 576 to 215 tolerating soft food diet IV morphine for pain Nausea: relief with Zofran and Compazine Hypercholesterolemia: -statin therapy Elevated transaminases: Waiting for liver U/S report enzymes improving AST: 111 to 73 ALT: 251 to 205 Hypertriglyceridemia: -statin therapy Type 2 diabetes mellitus: HbA1c of 10.1 Holding Metformin for now, started on sliding scale insulin Continue to monitor blood sugar Discussed lifestyle changes Obesity: Lifestyle modifications Tobacco use: Discussed cessation Dung Yepez M3 October 11, 2016 08:34
[2016-10-11] MEDS ORDERED: HYDROmorphone HCL PF 1 MG/ML VIAL IV PUSH PRN ×2 (09:00→11:15)
[2016-10-11] MEDS: SODIUM CHLORIDE 0.9% FLUSH 10 ML FLUSH IV FLUSH SCH ×2 (09:35→21:34)
[2016-10-11] MEDS: PANTOPRAZOLE SOD 40 MG DELAYED RELEASE TAB PO SCH ×2 (09:35→21:32)
[2016-10-11] MEDS: AMOXICILLIN (TRIHYDRATE) 500 MG CAP PO SCH ×2 (09:35→21:34)
[2016-10-11] MEDS: CLARITHROMYCIN 500 MG TAB PO SCH ×2 (09:36→21:33)
[2016-10-11] MEDS: PRAVASTATIN SOD 20 MG TAB PO SCH (09:36)
[2016-10-11 09:53] LABS: HEMATOCRIT 44.6 % (39.0-51.0); MEAN CELL VOLUME 87.4 FL (80.0-100.0); MEAN CORPUSCULAR HEMOGLOBIN 30.1 PG (27.0-34.0); MEAN CORPUSCULAR HGB CONC 34.4 % (32.0-36.0); PLATELET COUNT 231 TH/MM3 (150-450); RED BLOOD COUNT 5.11 MIL/MM3 (4.50-5.90); RED CELL DISTRIBUTION WIDTH 12.9 % (11.6-17.2); REVIEW FLAG FINAL; WHITE BLOOD COUNT 5.3 TH/MM3 (4.0-11.0)
[2016-10-11] MEDS: INSULIN DETEMIR 100 UNITS/ML VIAL SQ SCH ×2 (10:10→21:47)
[2016-10-11 10:16] LABS: BICARBONATE 21.9 MEQ/L (21.0-32.0); POTASSIUM 3.4 MEQ/L (3.5-5.1)
[2016-10-11] MEDS ORDERED: POTASSIUM CHLORIDE 10 MEQ CONTROLLED RELEASE TAB PO ONE (11:15)
--- NOTE | 2016-10-11 11:34 | HHI.PR ---
Subjective Remarks Patient still having bouts of nausea, denies vomiting still has RLQ pain although slightly better down to a 6 denies cp/sob K low Objective Vitals Vital Signs Date Time Temp Pulse Resp B/P Pulse Ox O2 Delivery O2 Flow Rate FiO2 10/11/16 10:11 16 10/11/16 08:00 98.0 57 16 128/86 98 122/78 10/11/16 04:00 98.1 60 16 135/86 99 10/11/16 00:54 20 10/11/16 00:00 97.8 73 18 136/92 97 10/10/16 20:00 97.9 70 18 138/86 98 10/10/16 16:00 97.9 82 18 128/79 99 10/10/16 12:00 98.2 78 16 135/81 98 I/O 10/10/16 10/10/16 10/10/16 10/11/16 10/11/16 10/11/16 07:00 15:00 23:00 07:00 15:00 23:00 Intake Total 1800 ml 960 ml 607 ml 960 ml Output Total 1500 ml 980 ml Balance 1800 ml -540 ml -373 ml 960 ml Intake Oral 960 ml 240 ml 960 ml IV Total 1800 ml 367 ml Output Urine Total 1500 ml 980 ml Bladder Scan Volume Amount 300 ml # Voids 2 1 4 # Bowel Movements 2 Result Diagram: 10/11/16 0845 10/11/16 0845 Imaging Last Impressions Liver Ultrasound 10/08/16 0000 Signed Impressions: Service Date/Time: Saturday, October 08, 2016 08:36 - CONCLUSION: 1. Hepatomegaly with steatosis. 2. Visualized portions of the pancreas have a normal appearance. Pancreatic tail is not seen. Kaleb Khan MD Abdomen/Pelvis CT 10/07/16 0000 Signed Impressions: Service Date/Time: Friday, October 07, 2016 09:29 - CONCLUSION: No evidence of mesenteric arterial stenosis Kaleb Sarkar MD Objective Remarks GENERAL: This is a well-nourished, well-developed patient, in no apparent distress. SKIN: No rashes, ecchymoses or lesions. Cool and dry. HEAD: Atraumatic. Normocephalic. No temporal or scalp tenderness. EYES: Pupils equal round and reactive. Extraocular motions intact. No scleral icterus. No injection or drainage. ENT: Nose without bleeding, purulent drainage or septal hematoma. Throat without erythema, tonsillar hypertrophy or exudate. Uvula midline. Airway patent. NECK: Trachea midline. No JVD or lymphadenopathy. Supple, nontender, no meningeal signs. CARDIOVASCULAR: Regular rate and rhythm without murmurs, gallops, or rubs. RESPIRATORY: Clear to auscultation. Breath sounds equal bilaterally. No wheezes , rales, or rhonchi. GASTROINTESTINAL: Abdomen soft, tender to palpation of the right lower quadrant and epigastric region, nondistended. No hepato-splenomegaly, or palpable masses. No guarding. MUSCULOSKELETAL: Extremities without clubbing, cyanosis, or edema. No joint tenderness, effusion, or edema noted. No calf tenderness. Negative Homans sign bilaterally. NEUROLOGICAL: Awake and alert. Cranial nerves II through XII intact. Motor and sensory grossly within normal limits. Five out of 5 muscle strength in all muscle groups. Normal speech. Medications and IVs Current Medications Medications (Trade) Dose Ordered Sig/Marshal Route Start Time Stop Time Status Last Admin (NS Flush) 2 ml UNSCH PRN IV FLUSH 10/07/16 10:15 (NS Flush) 2 ml BID IV FLUSH 10/07/16 21:00 10/10/16 20:24 (Tylenol) 650 mg Q4H PRN PO 10/07/16 10:15 (Zofran Inj) 4 mg Q6H PRN IVP 10/07/16 10:15 10/11/16 02:46 (Heparin Inj) 5,000 units Q8H SQ 10/07/16 11:00 10/11/16 02:50 (D50w (Vial) Inj) 50 ml UNSCH PRN IV 10/07/16 10:45 (Glucagon Inj) 1 mg UNSCH PRN OTHER 10/07/16 10:45 (Pravachol) 20 mg DAILY PO 10/07/16 19:15 10/11/16 09:36 (Protonix) 40 mg BID PO 10/08/16 12:00 10/11/16 09:35 (Levemir Inj) 5 units BID SQ 10/09/16 21:00 10/11/16 10:10 (Biaxin) 500 mg Q12HR PO 10/10/16 21:00 10/11/16 09:36 (Trimox) 1,000 mg BID PO 10/10/16 21:00 10/11/16 09:35 (Dilaudid Pf Inj) 0.5 mg Q4H PRN IV PUSH 10/11/16 11:15 (Dilaudid Pf Inj) 1 mg Q4H PRN IV PUSH 10/11/16 11:15 Urinary Catheter: No Vascular Central Line Catheter: No A/P Problem List: (1) RLQ abdominal pain ICD Code: R10.31 Status: Acute (2) Nausea & vomiting ICD Code: R11.2 Status: Acute (3) Diarrhea ICD Code: R19.7 Status: Resolved (4) Elevated lipase ICD Code: R74.8 Status: Acute (5) Diabetes mellitus with hyperglycemia ICD Code: E11.65 Status: Acute (6) Hypertriglyceridemia ICD Code: E78.1 Status: Acute (7) Transaminitis ICD Code: R74.0 Status: Acute (8) Gastritis ICD Code: K29.70 Status: Acute Plan: Continue PPI and antibiotics for treatment of H pilory Patient states he was taking BC packets (NSAID's) daily for musculoskeletal pain. (9) Helicobacter pylori gastritis ICD Code: K29.70 Status: Acute Plan: Patient started on amoxicillin and clarithromycin. Follow-up GI recommendations. Continue PPI. Patient advised to avoid NSAIDs. Assessment and Plan (1) RLQ abdominal pain Plan: 41 yo male presents with epigastric abdominal pain which later localized in right lower quadrant proceeded with nausea vomiting and diarrhea. CT abdomen and pelvis initially obtained in the [facility] showed scattered diverticula with some degree of spasm of sigmoid colon an underlying mass difficult to exclude. However repeat CT abdomen and pelvis with IV contrast obtained in [facility] did not show any evidence of mesenteric arterial stenosis or does not mention any evidence of mass. Still unclear etiology of the abdominal pain, however differential diagnosis includes gastroenteritis, colitis, mass, resolved intussusception, mild pancreatitis. Patient was admitted to the medical floor, placed on IV fluids, kept nothing by mouth, GI consulted, underwent EGD/colonoscopy on 10/08 which found erosive gastritis and hiatal hernia. Patient placed on Protonix 40 mg by mouth twice a day. Surgery consulted, case discussed with Dr. Cifuentes, no surgery recommended. 10/11 Enteric path negatve, C diff negative. Lipase trended down to normal. The patient states that he has been having diarrhea for the past month and a half. Patient still having nausea and right lower quadrant pain which is somewhat controlled with IV pain medication. Nausea could be also secondary to IV morphine so I will place patient IV Dilaudid. Continue PPI and to follow-up GI recommendations. Given that the patient had an inconclusive colonoscopy and still has persistent right lower quadrant pain and complaints of diarrhea for the past month and a half I will consider inflammatory bowel disease in the differential. I will send a sedimentation rate and CRP and if elevated will place patient on a trial of IV steroids. (2) Nausea & vomiting Plan: Patient had 2 episodes of vomiting the night of 10/09. Continue IV Zofran. Compazine as needed added. (3) Diarrhea Plan: Patient also complaining of diarrhea previous to presentation. Then had period of days without diarrhea. 10/09 Patient c/o diarrhea. Stool studies sent. Results as above. Will check stool for C diff. Place on contact isolation until this is ruled out. (4) Elevated lipase Plan: Elevated lipase at 1452. Elevated lipase could be secondary to gastritis , peptic ulcer disease, anything upsetting the GI tract, secondary to elevated triglycerides. Continue to monitor lipase. 10/08 lipase is trending down. Now 602. (5) Diabetes mellitus with hyperglycemia Plan: Hold metformin. Patient blood sugar in the mid 200s. I will place patient on SSI with insulin NovoLog and continue to monitor Accu-Cheks. Check hemoglobin A1c. 10/08 hemoglobin A1c 10.1. Diabetes uncontrolled. The patient will need to be started on insulin and will likely need to be discharged on insulin. 10/09 blood sugar very elevated and uncontrolled. I will start the patient on basal bolus therapy with insulin Levemir and insulin NovoLog and adjust it accordingly. Continue SSI with insulin NovoLog. 10/10 BS better controlled, continue with the post therapy with insulin Levemir and prandial with insulin NovoLog. Continue SSI with insulin NovoLog as well. Continue to monitor Accu-Cheks. (6) Hypertriglyceridemia Plan: Lipid profile showed triglycerides of 1156, cholesterol 264 and HDL cholesterol of 21.8 Continue pravastatin. (7) Transaminitis Plan: Patient with elevated function test with an AST of 173 and ALTs of 110 on presentation to the ED. liver function tests trending up. Liver ultrasound showed hepatomegaly with steatosis. Visualized portion of the pancreas have a normal appearance. Pancreatic tail is not seen. Hepatitis profile negative. Continue to monitor liver function tests. 10/09 transaminases continued to trend down. Continue to monitor LFTs. Assessment and Plan GI prophylaxis: PPI DVT prophylaxis: Place on SCDs, heparin subcutaneous. Discharge Planning Continue to monitor and the medical floor. Problem Qualifiers (1) Nausea & vomiting: Qualified Code: R11.2 - Non-intractable vomiting with nausea, unspecified vomiting type (2) Diarrhea: Qualified Code: R19.7 - Diarrhea, unspecified type Sean Key MD October 11, 2016 11:34
[2016-10-11 12:00] VITALS: BP 137/88; PULSE 64; RESP 16; TEMP 97.6; O2SAT 98
--- NOTE | 2016-10-11 12:39 | HHI.GIFU ---
Subjective Remarks Pt resting comfortably in bed, no apparent distress. SAys he still has some nausea and vomiting, not related to eating. Still has RLQ pain but it is improving. (Gini Smith) Objective Vitals I&O Vital Signs Date Time Temp Pulse Resp B/P Pulse Ox O2 Delivery O2 Flow Rate FiO2 10/11/16 10:11 16 10/11/16 08:00 98.0 57 16 128/86 98 122/78 10/11/16 04:00 98.1 60 16 135/86 99 10/11/16 00:54 20 10/11/16 00:00 97.8 73 18 136/92 97 10/10/16 20:00 97.9 70 18 138/86 98 10/10/16 16:00 97.9 82 18 128/79 99 I/O 10/10/16 10/10/16 10/10/16 10/11/16 10/11/16 10/11/16 07:00 15:00 23:00 07:00 15:00 23:00 Intake Total 1800 ml 960 ml 607 ml 960 ml Output Total 1500 ml 980 ml Balance 1800 ml -540 ml -373 ml 960 ml Intake Oral 960 ml 240 ml 960 ml IV Total 1800 ml 367 ml Output Urine Total 1500 ml 980 ml Bladder Scan Volume Amount 300 ml # Voids 2 1 4 # Bowel Movements 2 Laboratory Laboratory Tests Test 10/11/16 08:45 White Blood Count 5.3 Red Blood Count 5.11 Hemoglobin 15.4 Hematocrit 44.6 Mean Corpuscular Volume 87.4 Mean Corpuscular Hemoglobin 30.1 Mean Corpuscular Hemoglobin 34.4 Concent Red Cell Distribution Width 12.9 Platelet Count 231 Mean Platelet Volume 7.5 Sodium Level 140 Potassium Level 3.4 Chloride Level 107 Carbon Dioxide Level 21.9 Anion Gap 11 Blood Urea Nitrogen 3 Creatinine 0.48 Estimat Glomerular Filtration 190 Rate Random Glucose 145 Calcium Level 8.5 Lipase 177 Date/Time Procedure Status Source Growth 10/09/16 19:00 Cryptosporidium Exam - Final Complete Stool Stool NEGATIVE - NO CRYPTOSPORIDIUM ANTIGEN... 10/09/16 19:00 Stool Pus (ROBERT) - Final Complete Stool Stool RARE WBC 10/09/16 19:00 Giardia Antigen (ROBERT) - Final Complete Stool Stool NEGATIVE - NO GIARDIA ANTIGEN DETECTE... 10/09/16 19:00 - Final Complete Stool Stool NO ENTERIC PATHOGENS DETECTED BY PCR... Imaging Last Impressions Liver Ultrasound 10/08/16 0000 Signed Impressions: Service Date/Time: Saturday, October 08, 2016 08:36 - CONCLUSION: 1. Hepatomegaly with steatosis. 2. Visualized portions of the pancreas have a normal appearance. Pancreatic tail is not seen. Kaleb Khan MD Abdomen/Pelvis CT 10/07/16 0000 Signed Impressions: Service Date/Time: Friday, October 07, 2016 09:29 - CONCLUSION: No evidence of mesenteric arterial stenosis Kaleb Sarkar MD Physical Exam HEENT: EOMI; normocephalic; atraumatic; no jaundice. CHEST: CTA CARDIAC: RRR ABDOMEN: Soft, nondistended, RLQ mild TTP; bowel sounds are present in all four quadrants. rebound tenderness EXTREMITIES: No clubbing, cyanosis, or edema. SKIN: Normal; no rash; no jaundice. RESUME SPECIALIST: No focal deficits; alert and oriented times three. (Gini Smith [facility]) Assessment and Plan Plan ASSESSMENT - RLQ pain - recent sudden onset sharp RLQ pain with nausea, 1 x vomit. EGD path indicates H. pylori so will tx for that. HX intussusception. Patient clinically feeling better and requesting diet advancement, will try full liquids and see how he does. GS consulted, do not feel this is appendicitis or surgical. If sx persis consider GES s/p colonoscopy/EGD 10-08-16--> reflux esophagitis, erosive gastritis, erosive duodenitis, incomplete evaluation colon r/t poor prep. CT abd unremarkable, finding were D/w Dr Coon, pancreas normal, poss mild hepatic steatosis, no thickened loops colon to indicate ischemia. - elevated lipase - trending down, 177 today. likely secondary to hypertriglyceridemia, 1156. PT has been started on Pravastatin - elevated LFTs - ALT AST trending down but ALT gradually increasing. US liver ---> 1. Hepatomegaly with steatosis. 2. Visualized portions of the pancreas have a normal appearance. Pancreatic tail is not seen. Hep panel negative, CARLEEN neg, MA neg, ASMA neg. PLAN -clarithromycin 500mg BID, amoxicillin 1g BID 10 days - continue PPI - continue statin therapy - full liquids - Agree with GS consult - avoid NSAIDs -supportive care - colonoscopy in 1-2 m This pt seen by myself and Dr Ruiz and this note is written on his behalf (Gini Smith) Physician Comments Patient seen and examined Agree with above Continue with current supportive care Monitor labs Await surgical evaluation (Jose Ruiz MD) Gini Smith October 11, 2016 12:39 Jose Ruiz MD October 11, 2016 19:19
[2016-10-11 13:18] LABS: INDIRECT BILIRUBIN 0.5 MG/DL (0.0-0.8); TOTAL BILIRUBIN ADULT 0.7 MG/DL (0.2-1.0)
--- NOTE | 2016-10-11 14:15 | PD.CAR.PN ---
CVT Progress Note Subjective/Hospital Course: Patient seen and evaluated Full consult dictated Thanks J 10/10/16 Patient with nonspecific abdominal pain in the epigastrium midabdomen than the right lower quadrant and very hard to quantify No guarding some rebound at this time pain only and deep palpation, no masses Patient clearly does not have appendicitis and I agree with medicine as far as ordering Salmonella Shigella titers as well as assessing for unusual causes including intestinal parasites Amylase and lipase are elevated and on the way down. Patient has very pronounced hyperlipidemia so it would not be unusual if patient developed subacute pancreatitis due to significant hyperlipidemia Either way this is not a surgical condition and patient will not require surgery unless something unexpected comes up 10/11/16 Abdomen soft with active bowel sounds Minimal abdominal pain Liver function studies on their way down Tolerates by mouth diet Nothing to with from surgical point Objective: Vital Signs Date Time Temp Pulse Resp B/P Pulse Ox O2 Delivery O2 Flow Rate FiO2 10/11/16 12:00 97.6 64 16 137/88 98 10/11/16 10:11 16 10/11/16 08:00 98.0 57 16 128/86 98 122/78 10/11/16 04:00 98.1 60 16 135/86 99 10/11/16 00:54 20 10/11/16 00:00 97.8 73 18 136/92 97 10/10/16 20:00 97.9 70 18 138/86 98 10/10/16 16:00 97.9 82 18 128/79 99 Labs: Laboratory Tests Test 10/11/16 08:45 White Blood Count 5.3 TH/MM3 (4.0-11.0) Red Blood Count 5.11 MIL/MM3 (4.50-5.90) Hemoglobin 15.4 GM/DL (13.0-17.0) Hematocrit 44.6 % (39.0-51.0) Mean Corpuscular Volume 87.4 FL (80.0-100.0) Mean Corpuscular Hemoglobin 30.1 PG (27.0-34.0) Mean Corpuscular Hemoglobin 34.4 % Concent (32.0-36.0) Red Cell Distribution Width 12.9 % (11.6-17.2) Platelet Count 231 TH/MM3 (150-450) Mean Platelet Volume 7.5 FL (7.0-11.0) Erythrocyte Sedimentation Rate 9 mm/hr (0-15) Sodium Level 140 MEQ/L (136-145) Potassium Level 3.4 MEQ/L (3.5-5.1) Chloride Level 107 MEQ/L (98-107) Carbon Dioxide Level 21.9 MEQ/L (21.0-32.0) Anion Gap 11 MEQ/L (5-15) Blood Urea Nitrogen 3 MG/DL (7-18) Creatinine 0.48 MG/DL (0.60-1.30) Estimat Glomerular Filtration 190 ML/MIN Rate (>89) Random Glucose 145 MG/DL (74-106) Calcium Level 8.5 MG/DL (8.5-10.1) Total Bilirubin 0.7 MG/DL (0.2-1.0) Direct Bilirubin 0.2 MG/DL (0.0-0.2) Indirect Bilirubin 0.5 MG/DL (0.0-0.8) Aspartate Amino Transf 66 U/L (15-37) (AST/SGOT) Alanine Aminotransferase 198 U/L (12-78) (ALT/SGPT) Alkaline Phosphatase 128 U/L (45-117) Total Protein 6.4 GM/DL (6.4-8.2) Albumin 3.3 GM/DL (3.4-5.0) Lipase 177 U/L (73-393) Result Diagram: 10/11/16 0845 10/11/16 0845 Jane Dent MD October 11, 2016 14:15
[2016-10-11] MEDS: HYDROmorphone HCL PF 1 MG/ML VIAL IV PUSH PRN ×3 (15:25→23:48)
[2016-10-11] MEDS: NICOTINE 21 MG/24 HR PATCH T-DERMAL SCH (15:25)
[2016-10-11 16:00] VITALS: BP 131/81; PULSE 58; RESP 16; TEMP 96.8; O2SAT 96
[2016-10-11] MEDS: ALPRAZolam 0.5 MG TAB PO PRN (16:27)
[2016-10-11 20:00] VITALS: BP 129/85; PULSE 74; RESP 16; TEMP 97.3; O2SAT 99
[2016-10-12] VITALS: BP 131/89; PULSE 69; RESP 15; TEMP 97.2; O2SAT 97
[2016-10-12] MEDS: ALPRAZolam 0.5 MG TAB PO PRN ×3 (01:48→21:17)
[2016-10-12] MEDS: ONDANSETRON HCL 4 MG/2 ML VIAL IVP PRN ×3 (01:48→20:51)
[2016-10-12] MEDS: HEPARIN SODIUM - SQ 10,000 UNITS/ML VIAL SQ SCH ×3 (03:35→18:26)
[2016-10-12 04:00] VITALS: BP 116/74; PULSE 68; RESP 15; TEMP 97.9; O2SAT 97
[2016-10-12] MEDS: HYDROmorphone HCL PF 1 MG/ML VIAL IV PUSH PRN ×2 (06:19→10:11)
[2016-10-12] MEDS: INSULIN ASPART SUPPLEMENTAL SCALE SQ SCH ×4 (06:26→23:02)
[2016-10-12 08:00] VITALS: BP 112/74; PULSE 87; RESP 12; TEMP 97; O2SAT 95
[2016-10-12] MEDS: REMOVE OLD PATCH T-DERMAL SCH (09:00)
[2016-10-12] MEDS: CLARITHROMYCIN 500 MG TAB PO SCH ×2 (09:56→20:52)
[2016-10-12] MEDS: PRAVASTATIN SOD 20 MG TAB PO SCH (09:56)
[2016-10-12] MEDS: PANTOPRAZOLE SOD 40 MG DELAYED RELEASE TAB PO SCH ×2 (09:56→20:52)
[2016-10-12] MEDS: AMOXICILLIN (TRIHYDRATE) 500 MG CAP PO SCH ×2 (09:57→20:52)
[2016-10-12] MEDS: NICOTINE 21 MG/24 HR PATCH T-DERMAL SCH (09:59)
[2016-10-12] MEDS: SODIUM CHLORIDE 0.9% FLUSH 10 ML FLUSH IV FLUSH SCH ×2 (10:06→20:52)
[2016-10-12] MEDS: INSULIN DETEMIR 100 UNITS/ML VIAL SQ SCH ×2 (10:21→23:01)
[2016-10-12] MEDS ORDERED: oxyCODONE/ACETAMINOPHEN 5 MG/325 MG TAB PO PRN (11:00)
--- NOTE | 2016-10-12 11:11 | HHI.GIFU ---
Subjective Remarks No diarrhea today Still with abd pain but this is improving, rate 3/10 He still feels nauseated but no vomiting. Pt had 2 loose stools yesterday. (Sonya Murphy) Objective Vitals I&O Vital Signs Date Time Temp Pulse Resp B/P Pulse Ox O2 Delivery O2 Flow Rate FiO2 10/12/16 08:00 97.0 87 12 112/74 95 10/12/16 06:50 19 10/12/16 04:00 97.9 68 15 116/74 97 10/12/16 00:00 97.2 69 15 131/89 97 10/11/16 20:00 97.3 74 16 129/85 99 10/11/16 16:00 96.8 58 16 131/81 96 10/11/16 12:00 97.6 64 16 137/88 98 I/O 10/11/16 10/11/16 10/11/16 10/12/16 10/12/16 10/12/16 07:00 15:00 23:00 07:00 15:00 23:00 Intake Total 960 ml 940 ml 720 ml 1200 ml Balance 960 ml 940 ml 720 ml 1200 ml Intake Oral 960 ml 940 ml 720 ml 1200 ml # Voids 4 3 3 3 # Bowel Movements 2 Laboratory Date/Time Procedure Status Source Growth 10/09/16 19:00 Cryptosporidium Exam - Final Complete Stool Stool NEGATIVE - NO CRYPTOSPORIDIUM ANTIGEN... 10/09/16 19:00 Stool Pus (ROBERT) - Final Complete Stool Stool RARE WBC 10/09/16 19:00 Giardia Antigen (ROBERT) - Final Complete Stool Stool NEGATIVE - NO GIARDIA ANTIGEN DETECTE... 10/09/16 19:00 - Final Complete Stool Stool NO ENTERIC PATHOGENS DETECTED BY PCR... Imaging Last Impressions Liver Ultrasound 10/08/16 0000 Signed Impressions: Service Date/Time: Saturday, October 08, 2016 08:36 - CONCLUSION: 1. Hepatomegaly with steatosis. 2. Visualized portions of the pancreas have a normal appearance. Pancreatic tail is not seen. Kaleb Khan MD Abdomen/Pelvis CT 10/07/16 0000 Signed Impressions: Service Date/Time: Friday, October 07, 2016 09:29 - CONCLUSION: No evidence of mesenteric arterial stenosis Kaleb Sarkar MD Physical Exam CHEST: CTA CARDIAC: RRR ABDOMEN: Soft, nondistended, RLQ mild TTP; bowel sounds are present in all four quadrants. EXTREMITIES: No clubbing, cyanosis, or edema. SKIN: Normal; no rash; no jaundice. (Sonya Murphy) Assessment and Plan Plan ASSESSMENT - RLQ pain - Pt admitted with acute onset of sharp RLQ pain with nausea and one episode of vomiting. EGD/colonoscopy (10/08) --> Reflux esophagitis erosive Gastritis, erosive duodenitis, and incomplete evaluation of the colon due to poor prep. Pathology from the EGD is positive for H. pylori. Pt was started on Clarithromycin 500mg BID, Amoxicillin 1g BID, and PPI x 10 days. GS evaluated and do not feel this is a surgical issue. CTA of Abd/pelvis (10/07)--> No evidence of mesenteric arterial stenosis, additional findings previously discussed between GI WEIGHT ANALYST and Dr. Coon, and were reported to be a normal pancreas, possible mild hepatic steatosis, no thickened loops colon to indicate ischemia. - Diarrhea. C. diff is negative. Remaining stool studies are also negative. Previous colonoscopy with poor prep. - Elevated lipase. [place] to be secondary to hypertriglyceridemia. Labs are improving, 177 (10/11). Pt has been started on Pravastatin. - Elevated LFTs. US liver (10/08) --> Hepatomegaly with steatosis. Visualized portions of the pancreas have a normal appearance. Pancreatic tail is not seen. LFTs are slowly improving. Hep panel negative, CARLEEN neg, AMA neg, ASMA neg, tTG neg, Ceruloplasmin neg, [id number] 132. - Diabetes mellitus. Management per attending. PLAN - Cont. H. pylori treatment with PPI, Clarithromycin 500mg BID, Amoxicillin 1g BID x 10 days( to be completed on 10/20/16) - Cont. PPI - Cont. statin therapy - full liquids - Agree with GS consult - Avoid NSAIDs - Discussed the case with Dr. Vásquez and will will r/o biliary obstruction, check MRCP - Supportive care - Pt will need a repeat colonoscopy, if diarrhea and abd pain persists then consider repeat colonoscopy early next week vs. as an outpt depending on clinical status. - This pt seen by myself and Dr Vásquez and this note is written on his behalf ( Sonya Murphy) Physician Comments Seen and examined, pain improved but still there, labs reviewed, will check MRCP. Further recommendations to follow. (Sharon Vásquez MD) Sonya Murphy October 12, 2016 11:11 Sharon Vásquez MD October 12, 2016 12:06
[2016-10-12 12:00] VITALS: BP 148/83; PULSE 93; RESP 17; TEMP 97.9; O2SAT 100
[2016-10-12] MEDS: INSULIN ASPART 1,000 UNITS/10 ML VIAL SQ SCH ×2 (12:00→17:00)
[2016-10-12] MEDS ORDERED: NICO21DI25 T-DERMAL (12:05)
[2016-10-12] MEDS ORDERED: AMOX500C PO (12:05)
[2016-10-12] MEDS ORDERED: CLAR500T PO (12:05)
[2016-10-12] MEDS ORDERED: LEVEMIR SQ (12:05)
[2016-10-12] MEDS ORDERED: PRAV20TA PO (12:05)
[2016-10-12] MEDS ORDERED: GLUCKIT15 (12:10)
[2016-10-12] MEDS ORDERED: INSU1MIS15 (12:10)
[2016-10-12] MEDS ORDERED: LANCETS1 MI1 (12:11)
[2016-10-12] MEDS ORDERED: NOVOLOGP2 SQ (12:11)
[2016-10-12] MEDS ORDERED: GLUCTES12 (12:11)
--- NOTE | 2016-10-12 12:21 | HHI.PR ---
Subjective Remarks fu rlq pain, nausea, diarrhea, transaminitis, gastritis No further diarrhea today Patient states pain is better although still with nausea Still has RLQ pain denies fevers and chills denies cp/sob Objective Vitals Vital Signs Date Time Temp Pulse Resp B/P Pulse Ox O2 Delivery O2 Flow Rate FiO2 10/12/16 08:00 97.0 87 12 112/74 95 10/12/16 06:50 19 10/12/16 04:00 97.9 68 15 116/74 97 10/12/16 00:00 97.2 69 15 131/89 97 10/11/16 20:00 97.3 74 16 129/85 99 10/11/16 16:00 96.8 58 16 131/81 96 I/O 10/11/16 10/11/16 10/11/16 10/12/16 10/12/16 10/12/16 07:00 15:00 23:00 07:00 15:00 23:00 Intake Total 960 ml 940 ml 720 ml 1200 ml Balance 960 ml 940 ml 720 ml 1200 ml Intake Oral 960 ml 940 ml 720 ml 1200 ml # Voids 4 3 3 3 # Bowel Movements 2 Result Diagram: 10/11/16 0845 10/11/16 0845 Imaging Last Impressions Liver Ultrasound 10/08/16 0000 Signed Impressions: Service Date/Time: Saturday, October 08, 2016 08:36 - CONCLUSION: 1. Hepatomegaly with steatosis. 2. Visualized portions of the pancreas have a normal appearance. Pancreatic tail is not seen. Kaleb Khan MD Abdomen/Pelvis CT 10/07/16 0000 Signed Impressions: Service Date/Time: Friday, October 07, 2016 09:29 - CONCLUSION: No evidence of mesenteric arterial stenosis Kaleb Sarkar MD Objective Remarks GENERAL: This is a well-nourished, well-developed patient, in no apparent distress. SKIN: No rashes, ecchymoses or lesions. Cool and dry. HEAD: Atraumatic. Normocephalic. No temporal or scalp tenderness. EYES: Pupils equal round and reactive. Extraocular motions intact. No scleral icterus. No injection or drainage. ENT: Nose without bleeding, purulent drainage or septal hematoma. Throat without erythema, tonsillar hypertrophy or exudate. Uvula midline. Airway patent. NECK: Trachea midline. No JVD or lymphadenopathy. Supple, nontender, no meningeal signs. CARDIOVASCULAR: Regular rate and rhythm without murmurs, gallops, or rubs. RESPIRATORY: Clear to auscultation. Breath sounds equal bilaterally. No wheezes , rales, or rhonchi. GASTROINTESTINAL: Abdomen soft, tender to palpation of the right lower quadrant and epigastric region, nondistended. No hepato-splenomegaly, or palpable masses. No guarding. MUSCULOSKELETAL: Extremities without clubbing, cyanosis, or edema. No joint tenderness, effusion, or edema noted. No calf tenderness. Negative Homans sign bilaterally. NEUROLOGICAL: Awake and alert. Cranial nerves II through XII intact. Motor and sensory grossly within normal limits. Five out of 5 muscle strength in all muscle groups. Normal speech. Medications and IVs Current Medications Medications (Trade) Dose Ordered Sig/Marshal Route Start Time Stop Time Status Last Admin (NS Flush) 2 ml UNSCH PRN IV FLUSH 10/07/16 10:15 (NS Flush) 2 ml BID IV FLUSH 10/07/16 21:00 10/12/16 10:06 (Tylenol) 650 mg Q4H PRN PO 10/07/16 10:15 (Zofran Inj) 4 mg Q6H PRN IVP 10/07/16 10:15 10/12/16 01:48 (Heparin Inj) 5,000 units Q8H SQ 10/07/16 11:00 10/12/16 09:59 (D50w (Vial) Inj) 50 ml UNSCH PRN IV 10/07/16 10:45 (Glucagon Inj) 1 mg UNSCH PRN OTHER 10/07/16 10:45 (Pravachol) 20 mg DAILY PO 10/07/16 19:15 10/12/16 09:56 (Protonix) 40 mg BID PO 10/08/16 12:00 10/12/16 09:56 (Biaxin) 500 mg Q12HR PO 10/10/16 21:00 10/12/16 09:56 (Trimox) 1,000 mg BID PO 10/10/16 21:00 10/12/16 09:57 (Habitrol 21 Mg Patch.24 Hr) 1 patch DAILY T-DERMAL 10/11/16 14:00 10/12/16 09:59 Miscellaneous Information 1 DAILY T-DERMAL 10/12/16 09:00 10/12/16 09:00 (Xanax) 0.5 mg Q8H PRN PO 10/11/16 13:00 10/12/16 01:48 (Percocet 5-325 Mg) 1 tab Q4H PRN PO 10/12/16 11:00 (Percocet 5-325 Mg) 2 tab Q6H PRN PO 10/12/16 11:00 (Levemir Inj) 10 units BID SQ 10/12/16 21:00 (NovoLOG INJ) 3 units TIDAC SQ 10/12/16 12:00 Urinary Catheter: No Vascular Central Line Catheter: No A/P Problem List: (1) RLQ abdominal pain ICD Code: R10.31 Status: Acute (2) Nausea & vomiting ICD Code: R11.2 Status: Acute (3) Diarrhea ICD Code: R19.7 Status: Resolved (4) Elevated lipase ICD Code: R74.8 Status: Acute (5) Diabetes mellitus with hyperglycemia ICD Code: E11.65 Status: Acute (6) Hypertriglyceridemia ICD Code: E78.1 Status: Acute (7) Transaminitis ICD Code: R74.0 Status: Acute (8) Gastritis ICD Code: K29.70 Status: Acute (9) Helicobacter pylori gastritis ICD Code: K29.70 Status: Acute Assessment and Plan (1) RLQ abdominal pain Plan: 41 yo male presents with epigastric abdominal pain which later localized in right lower quadrant proceeded with nausea vomiting and diarrhea. CT abdomen and pelvis initially obtained in the [facility] showed scattered diverticula with some degree of spasm of sigmoid colon an underlying mass difficult to exclude. However repeat CT abdomen and pelvis with IV contrast obtained in [facility] did not show any evidence of mesenteric arterial stenosis or does not mention any evidence of mass. Still unclear etiology of the abdominal pain, however differential diagnosis includes gastroenteritis, colitis, mass, resolved intussusception, mild pancreatitis. Patient was admitted to the medical floor, placed on IV fluids, kept nothing by mouth, GI consulted, underwent EGD/colonoscopy on 10/08 which found erosive gastritis and hiatal hernia. Patient placed on Protonix 40 mg by mouth twice a day. Surgery consulted, case discussed with Dr. Cifuentes, no surgery recommended. 10/12 10/11 Enteric path negatve, C diff negative. Lipase trended down to normal. The patient states that he has been having diarrhea for the past month and a half. ESR normal, IBD normal. Patient will undergo MRCP to r/o biliary obstruction. Advance diet to soft 1800 ADA diet. (2) Nausea & vomiting Plan: Patient had 2 episodes of vomiting the night of 10/09. Continue IV Zofran. Compazine as needed added. (3) Diarrhea Plan: Patient also complaining of diarrhea previous to presentation. Then had period of days without diarrhea. Patient states month and a half of diarrhea. Stool studies including enteric path and Giardia negative, c diff negative. (4) Elevated lipase Plan: Elevated lipase at 1452. Elevated lipase could be secondary to gastritis , peptic ulcer disease, anything upsetting the GI tract, secondary to elevated triglycerides. Continue to monitor lipase. Lipase trended down to normal. (5) Diabetes mellitus with hyperglycemia Plan: Hold metformin. Patient blood sugar in the mid 200s. I will place patient on SSI with insulin NovoLog and continue to monitor Accu-Cheks. Check hemoglobin A1c. 10/08 hemoglobin A1c 10.1. Diabetes uncontrolled. The patient will need to be started on insulin and will likely need to be discharged on insulin. 10/09 blood sugar very elevated and uncontrolled. I will start the patient on basal bolus therapy with insulin Levemir and insulin NovoLog and adjust it accordingly. Continue SSI with insulin NovoLog. 10/10 BS better controlled, continue with the post therapy with insulin Levemir and prandial with insulin NovoLog. Continue SSI with insulin NovoLog as well. Continue to monitor Accu-Cheks. (6) Hypertriglyceridemia Plan: Lipid profile showed triglycerides of 1156, cholesterol 264 and HDL cholesterol of 21.8 Continue pravastatin. (7) Transaminitis Plan: Patient with elevated function test with an AST of 173 and ALTs of 110 on presentation to the ED. liver function tests trending up. Liver ultrasound showed hepatomegaly with steatosis. Visualized portion of the pancreas have a normal appearance. Pancreatic tail is not seen. Hepatitis profile negative. Continue to monitor liver function tests. 10/09 transaminases continued to trend down. Continue to monitor LFTs. Assessment and Plan GI prophylaxis: PPI DVT prophylaxis: Place on SCDs, heparin subcutaneous. Discharge Planning Poss Dc in am pending MRCP and GI clearance. Problem Qualifiers (1) Nausea & vomiting: Qualified Code: R11.2 - Non-intractable vomiting with nausea, unspecified vomiting type (2) Diarrhea: Qualified Code: R19.7 - Diarrhea, unspecified type Sean Key MD October 12, 2016 12:21
--- NOTE | 2016-10-12 15:44 | RADRPT ---
EXAM DATE/TIME: 10/12/2016 13:26 [place] COMPARISON: No previous studies available for comparison. INDICATIONS : Obstruction. MEDICAL HISTORY : Diabetes mellitus type 2. SURGICAL HISTORY : Cholecystectomy. ENCOUNTER: Initial ACUITY: 1 day PAIN SCORE: 5/10 LOCATION: Right lower quadrant TECHNIQUE: Multiplanar, multisequence magnetic resonance imaging of the abdomen was performed. High-resolution 3D dataset was utilized to reconstruct maximum-intensity projection (MIP) images. FINDINGS: MRCP was performed in this patient with suspected pancreatitis. There is no biliary ductal dilatation. Common duct is small. Gallbladder is surgically absent. There is reasonable visualization of the pancreas. I do not see any edema in or around the pancreas. Correlation with laboratory studies is suggested. There is no precious hepatis adenopathy. Portion of the kidneys identified are grossly normal. CONCLUSION: 1. Normal sized common duct. 2. I do not see any evidence for pancreatitis by MRCP. 3. Correlation with laboratory studies is suggested. Yash Hernandez MD FACR on October 12, 2016 at 15:38 Board Certified Radiologist. This report was verified electronically.
[2016-10-12] MEDS ORDERED: PROMETHAZINE 25 MG IM ONE (16:00)
[2016-10-12] MEDS ORDERED: HYDROmorphone HCL PF 1 MG/ML VIAL IV ONE (16:00)
[2016-10-12] MEDS: oxyCODONE/ACETAMINOPHEN 5 MG/325 MG TAB PO PRN (18:24)
[2016-10-12 20:00] VITALS: BP 132/90; PULSE 77; RESP 18; TEMP 96.2; O2SAT 97
[2016-10-13] VITALS: BP 116/80; PULSE 104; RESP 17; TEMP 96.7; O2SAT 97
[2016-10-13] MEDS: oxyCODONE/ACETAMINOPHEN 5 MG/325 MG TAB PO PRN (03:53)
[2016-10-13] MEDS: HEPARIN SODIUM - SQ 10,000 UNITS/ML VIAL SQ SCH ×2 (03:53→10:56)
[2016-10-13 04:00] VITALS: BP 124/80; PULSE 92; RESP 17; TEMP 96.4; O2SAT 98
[2016-10-13] MEDS: INSULIN ASPART SUPPLEMENTAL SCALE SQ SCH ×2 (06:26→11:00)
[2016-10-13 06:56] LABS: ALKALINE PHOSPHATASE 116 U/L (45-117); ANION GAP 11 MEQ/L (5-15); AST (GOT) 68 U/L (15-37); BLOOD UREA NITROGEN 9 MG/DL (7-18); CHLORIDE 103 MEQ/L (98-107); GLOMERULAR FILTRATION RATE 119 ML/MIN (>89); POTASSIUM 3.8 MEQ/L (3.5-5.1); SODIUM (NA) 139 MEQ/L (136-145); TOTAL BILIRUBIN ADULT 0.5 MG/DL (0.2-1.0)
[2016-10-13 08:00] VITALS: BP 110/73; PULSE 81; RESP 14; TEMP 96.5; O2SAT 93
[2016-10-13 08:25] LABS: ALT (GPT) 162 U/L (12-78)
[2016-10-13] MEDS: SODIUM CHLORIDE 0.9% FLUSH 10 ML FLUSH IV FLUSH SCH (09:00)
[2016-10-13] MEDS: INSULIN DETEMIR 100 UNITS/ML VIAL SQ SCH (09:00)
[2016-10-13] MEDS: REMOVE OLD PATCH T-DERMAL SCH (09:00)
[2016-10-13] MEDS: NICOTINE 21 MG/24 HR PATCH T-DERMAL SCH (10:56)
[2016-10-13] MEDS: CLARITHROMYCIN 500 MG TAB PO SCH (10:56)
[2016-10-13] MEDS: PANTOPRAZOLE SOD 40 MG DELAYED RELEASE TAB PO SCH (10:56)
[2016-10-13] MEDS: PRAVASTATIN SOD 20 MG TAB PO SCH (10:56)
[2016-10-13] MEDS: AMOXICILLIN (TRIHYDRATE) 500 MG CAP PO SCH (10:56)
[2016-10-13] MEDS ORDERED: LEVEMIR SQ (12:10)
--- NOTE | 2016-10-13 12:11 | HHI.DCPOC ---
Discharge Care Plan Diagnosis: (1) Abdominal pain (2) Vomiting (3) Diarrhea (4) Gastritis (5) RLQ abdominal pain (6) Hypertriglyceridemia (7) Nausea & vomiting (8) Transaminitis (9) Helicobacter pylori gastritis (10) Elevated lipase (11) Diabetes mellitus with hyperglycemia Goals to Promote Your Health * To prevent worsening of your condition and complications * To maintain your health at the optimal level Directions to Meet Your Goals Take your medications as prescribed Follow your dietary instruction Follow activity as directed Keep your appointments as scheduled Take your immunizations and boosters as scheduled If your symptoms worsen call your PCP, if no PCP go to Urgent Care Center or Emergency Room Smoking is Dangerous to Your Health. Avoid second hand smoke Call the 24-hour hour crisis hotline for domestic abuse at Sean Key MD October 13, 2016 12:11
[2016-10-13] MEDS ORDERED: PROT40TA PO (12:16)
[2016-10-13] MEDS ORDERED: OXYC1TAB63 PO (12:16)
--- NOTE | 2016-10-13 12:18 | HHI.DS ---
Discharge Summary Admission Date October 07, 2016 at 07:48 Discharge Date: October 13, 2016 Admitting Diagnosis (1) RLQ abdominal pain ICD Code: R10.31 Diagnosis: Principal (2) Nausea & vomiting ICD Code: R11.2 Diagnosis: Principal (3) Diarrhea ICD Code: R19.7 Diagnosis: Principal (4) Elevated lipase ICD Code: R74.8 Diagnosis: Principal (5) Diabetes mellitus with hyperglycemia ICD Code: E11.65 Diagnosis: Principal (6) Hypertriglyceridemia ICD Code: E78.1 Diagnosis: Principal (7) Transaminitis ICD Code: R74.0 Diagnosis: Principal (8) Gastritis ICD Code: K29.70 Diagnosis: Principal (9) Helicobacter pylori gastritis ICD Code: K29.70 Diagnosis: Principal Procedures sp EGD/colonoscopy Brief History - From Admission This is a 41-year-old male with past medical history significant for type 2 diabetes who presents to [facility] ED on 10/07 complaining of one day of abdominal pain. The patient states that the pain presented the night prior to presentation to the hospital localized in the epigastric region and the was described as crampy in sensation. Patient states that the pain gradually moved towards the right lower quadrant and became sharp and stabbing. Patient states the pain was 8-9/10 in intensity. Abdominal pain was associated with diarrhea and one episode of vomiting without blood. Patient states having an appetite. There was no pain with urination, fevers denies chance of breath, chest pain, palpitations, melena or hematochezia. Patient elicits a history of intussusception in 2002 which he had similar episodes of pain to what he is having now. CBC/BMP: 10/11/16 0845 10/13/16 0454 Significant Findings Laboratory Tests Test 10/11/16 10/13/16 08:45 04:54 Potassium Level 3.4 MEQ/L (3.5-5.1) Blood Urea Nitrogen 3 MG/DL (7-18) Creatinine 0.48 MG/DL (0.60-1.30) Random Glucose 145 MG/DL 252 MG/DL (74-106) (74-106) Aspartate Amino Transf 66 U/L (15-37) 68 U/L (15-37) (AST/SGOT) Alanine Aminotransferase 198 U/L (12-78) 162 U/L (12-78) (ALT/SGPT) Alkaline Phosphatase 128 U/L (45-117) Albumin 3.3 GM/DL 3.3 GM/DL (3.4-5.0) (3.4-5.0) Imaging Last Impressions Cholangiopancreatography MRI 10/12/16 0000 Signed Impressions: Service Date/Time: Wednesday, October 12, 2016 13:26 - CONCLUSION: 1. Normal sized common duct. 2. I do not see any evidence for pancreatitis by MRCP. 3. Correlation with laboratory studies is suggested. Yash Hernandez MD FACR Liver Ultrasound 10/08/16 0000 Signed Impressions: Service Date/Time: Saturday, October 08, 2016 08:36 - CONCLUSION: 1. Hepatomegaly with steatosis. 2. Visualized portions of the pancreas have a normal appearance. Pancreatic tail is not seen. Kaleb Khan MD Abdomen/Pelvis CT 10/07/16 0000 Signed Impressions: Service Date/Time: Friday, October 07, 2016 09:29 - CONCLUSION: No evidence of mesenteric arterial stenosis Kaleb Sarkar MD PE at Discharge GENERAL: This is a well-nourished, well-developed patient, in no apparent distress. SKIN: No rashes, ecchymoses or lesions. Cool and dry. HEAD: Atraumatic. Normocephalic. No temporal or scalp tenderness. EYES: Pupils equal round and reactive. Extraocular motions intact. No scleral icterus. No injection or drainage. ENT: Nose without bleeding, purulent drainage or septal hematoma. Throat without erythema, tonsillar hypertrophy or exudate. Uvula midline. Airway patent. NECK: Trachea midline. No JVD or lymphadenopathy. Supple, nontender, no meningeal signs. CARDIOVASCULAR: Regular rate and rhythm without murmurs, gallops, or rubs. RESPIRATORY: Clear to auscultation. Breath sounds equal bilaterally. No wheezes , rales, or rhonchi. GASTROINTESTINAL: Abdomen soft, tender to palpation of the right lower quadrant and epigastric region, nondistended. No hepato-splenomegaly, or palpable masses. No guarding. MUSCULOSKELETAL: Extremities without clubbing, cyanosis, or edema. No joint tenderness, effusion, or edema noted. No calf tenderness. Negative Homans sign bilaterally. NEUROLOGICAL: Awake and alert. Cranial nerves II through XII intact. Motor and sensory grossly within normal limits. Five out of 5 muscle strength in all muscle groups. Normal speech. Pt update on day of discharge Patient seen and examined. Denies nausea and vomiting, abdominal pain almost resolved. On exam there is no epigastric or RLQ abdominal pain. MRCP did not show pancreatitis or abnormal duct. Hospital Course (1) RLQ abdominal pain 41 yo male presents with epigastric abdominal pain which later localized in right lower quadrant proceeded with nausea vomiting and diarrhea. CT abdomen and pelvis initially obtained in the [facility] showed scattered diverticula with some degree of spasm of sigmoid colon an underlying mass difficult to exclude. However repeat CT abdomen and pelvis with IV contrast obtained in [facility] did not show any evidence of mesenteric arterial stenosis or does not mention any evidence of mass. Still unclear etiology of the abdominal pain, however differential diagnosis includes gastroenteritis, colitis, mass, resolved intussusception, mild pancreatitis. Patient was admitted to the medical floor, placed on IV fluids, kept nothing by mouth, GI consulted, underwent EGD/colonoscopy on 10/08 which found erosive gastritis and hiatal hernia. Patient placed on Protonix 40 mg by mouth twice a day. Surgery consulted, case discussed with Dr. Cifuentes, no surgery recommended. 10/12 10/11 Enteric path negatve, C diff negative. Lipase trended down to normal. The patient states that he has been having diarrhea for the past month and a half. ESR normal, IBD normal. Patient will undergo MRCP to r/o biliary obstruction. Advance diet to soft 1800 ADA diet. (2) Nausea & vomiting Patient had 2 episodes of vomiting the night of 10/09. Treated w IV Zofran. Compazine as needed added. (3) Diarrhea Patient also complaining of diarrhea previous to presentation. Then had period of days without diarrhea. Patient states month and a half of diarrhea. Stool studies including enteric path and Giardia negative, c diff negative. (4) Elevated lipase Elevated lipase at 1452. Elevated lipase could be secondary to gastritis, peptic ulcer disease, anything upsetting the GI tract, secondary to elevated triglycerides. Continue to monitor lipase. Lipase trended down to normal. (5) Diabetes mellitus with hyperglycemia Hold metformin. Patient blood sugar in the mid 200s. I will place patient on SSI with insulin NovoLog and continue to monitor Accu-Cheks. Check hemoglobin A1c. 10/08 hemoglobin A1c 10.1. Diabetes uncontrolled. The patient will need to be started on insulin and will likely need to be discharged on insulin. 10/09 blood sugar very elevated and uncontrolled. I will start the patient on basal bolus therapy with insulin Levemir and insulin NovoLog and adjust it accordingly. Continue SSI with insulin NovoLog. 10/10 BS better controlled, continue with the post therapy with insulin Levemir and prandial with insulin NovoLog. Continue SSI with insulin NovoLog as well. Continue to monitor Accu-Cheks. (6) Hypertriglyceridemia Lipid profile showed triglycerides of 1156, cholesterol 264 and HDL cholesterol of 21.8 Continue pravastatin. (7) Transaminitis Patient with elevated function test with an AST of 173 and ALTs of 110 on presentation to the ED. liver function tests trending up. Liver ultrasound showed hepatomegaly with steatosis. Visualized portion of the pancreas have a normal appearance. Pancreatic tail is not seen. Hepatitis profile negative. Continue to monitor liver function tests. 10/09 transaminases continued to trend down. Continue to monitor LFTs. GI prophylaxis: PPI DVT prophylaxis: Place on SCDs, heparin subcutaneous. Pt Condition on Discharge: Stable Discharge Disposition: Discharge Home Discharge Time: <= 30 minutes Discharge Instructions DIET: Follow Instructions for: Diabetic Diet Activities you can perform: Regular-No Restrictions Follow up Referrals: Gastroenterology - 2 Weeks with Sharon Vásquez MD PCP Follow-up - 1 Week New Medications: Blood Glucose Monitoring W/Device (Glucocom Blood Glucose Mo W/Device) 1 Kit Kit 1 KIT .ROUTE DIRECTED Blood Sugar Management #1 KIT Glucocom Test Strips (Glucocom Test Strips) 1 Rosy Rosy 1 BOX .ROUTE DIRECTED Blood Sugar Management #1 BOX Insulin Aspart Inj (Novolog Inj) 1,000 Unit/10 Ml Vial 1-9 UNITS SQ ACHS Max dose at bedtime:( )units; sugars less than 70,(0)units; sugars 150-199,(1) unit; sugars 200-249,(3) units; sugars 250-299,(5) units; sugars 300-349,(7) units; sugars greater than 349,(9) units Blood Sugar Management #10 Ref 0 ML Insulin Syringe/U-100/31G X 5/16" 1 ml (Insulin Syringe/U-100/31G X 5/16" 1 ml) 1 Mis Mis 1 EA .ROUTE DIRECTED Blood Sugar Management #1 Ref 0 BOX Lancets (Lancets) 1 Mis Mis 1 EA .ROUTE DIRECTED Blood Sugar Management #1 Ref 0 BOX Amoxicillin (Amoxicillin) 500 Mg Cap 1000 MG PO BID Infection #24 CAP Clarithromycin (Clarithromycin) 500 Mg Tab 500 MG PO Q12HR Infection #24 TAB Insulin Detemir Inj (Levemir Inj) 1,000 unit/ 10 ML Vial 15 UNITS SQ BID Blood Sugar Management #1 VIAL Nicotine (Eq Nicotine) 21 Mg/24 Hr Dis 1 PATCH T-DERMAL DAILY smoking cessation #30 PATCH Oxycodone-Acetaminophen (Oxycodone-Acetaminophen) 5-325 mg Tab 1 TAB PO Q4H PRN pain #30 TAB Pantoprazole (Protonix) 40 Mg Tab 40 MG PO BID gastritis #31 TAB Pravastatin (Pravachol) 20 Mg Tab 20 MG PO DAILY Cholesterol Management #30 TAB Sean Key MD October 13, 2016 12:18
== END 2016-10-13 14:30 | disposition home or self-care (01) | DRG 392 ==
LOC: EDSTATUS 04:40 → HOCA 07:48
PROVIDERS: ADMIT Hospitalist; ATTEND Hospitalist
PROC: 0DJD8ZZ Inspection of Lower Intestinal Tract, Via Natural or Artificial Opening Endoscopic (ICD-10-PCS; 2016-10-08)
PROC: 0DB58ZX Excision of Esophagus, Via Natural or Artificial Opening Endoscopic, Diagnostic (ICD-10-PCS; principal; 2016-10-08 10:30)
PROC: 0DB68ZX Excision of Stomach, Via Natural or Artificial Opening Endoscopic, Diagnostic (ICD-10-PCS; 2016-10-08 10:30)
DX: R10.31 Right lower quadrant pain (principal); E11.65 Type 2 diabetes mellitus with hyperglycemia; I10 Essential (primary) hypertension; R11.2 Nausea with vomiting, unspecified; R19.7 Diarrhea, unspecified; E78.1 Pure hyperglyceridemia; R74.0 Nonspecific elevation of levels of transaminase and lactic acid dehydrogenase [LDH]; B96.81 Helicobacter pylori [H. pylori] as the cause of diseases classified elsewhere; K29.60 Other gastritis without bleeding; E78.5 Hyperlipidemia, unspecified; K21.0 Gastro-esophageal reflux disease with esophagitis; K29.80 Duodenitis without bleeding; K44.9 Diaphragmatic hernia without obstruction or gangrene; K57.30 Diverticulosis of large intestine without perforation or abscess without bleeding; M79.1 Myalgia; E66.9 Obesity, unspecified; F17.210 Nicotine dependence, cigarettes, uncomplicated
CPT/HCPCS: 74174; 74176; 74181; 76377; 76705; 80048; 80053; 80061; 80074; 80076; 81001; 82010; 82103; 82390; 82728; 82948; 83036; 83516; 83520; 83540; 83550; 83605; 83690; 83735; 84100; 85025; 85027; 85652; 86038; 86256; 87205; 87328; 87329; 87493; 87506; 88305; 88312; 93005; 96372; 96374; 96375; 96376; J0500; J0780; J1170; J1644; J1815; J1885; J2270; J2405; J7030; Q9967

== ENCOUNTER 2017-04-30 04:35 | Observation (INO) | payer SELFPAY ==
[~2017-04-30] VITALS: Ht 175.3 cm; Wt 92.1 kg
[~2017-04-30 04:35] MED LIST: AMOX500C PO; BUTA1CAP PO; CLAR500T PO; GLUCKIT15; GLUCTES12; INSU1MIS15; LANCETS1 MI1; LEVEMIR SQ; NICO21DI25 T-DERMAL; NOVOLOGP2 SQ; OXYC1TAB63 PO; PRAV20TA PO; PROT40TA PO; REGL10TA5 PO
[2017-04-30 05:36] VITALS: BP 126/78; PULSE 85; RESP 18; TEMP 97.6; O2SAT 96
[2017-04-30] MEDS ORDERED: NALOXONE HCL 0.4 MG/ML AMP IV PUSH PRN (05:45)
[2017-04-30] MEDS ORDERED: ACETAMINOPHEN 325 MG TAB PO PRN (05:45)
[2017-04-30] MEDS ORDERED: SODIUM CHLORIDE 0.9% FLUSH 10 ML FLUSH IV FLUSH PRN (05:45)
[2017-04-30] MEDS ORDERED: GLUCAGON 1 MG/ML VIAL OTHER PRN (05:45)
[2017-04-30] MEDS ORDERED: DEXTROSE 50% IN WATER 50 ML VIAL(D50) IV PUSH PRN (05:45)
[2017-04-30] MEDS: MORPHINE SULFATE 4 MG/ML INJ IV PUSH PRN ×4 (05:50→19:05)
[2017-04-30] MEDS: INSULIN ASPART SUPPLEMENTAL SCALE SQ SCH ×4 (08:31→21:18)
[2017-04-30] MEDS: SODIUM CHLORIDE 0.9% FLUSH 10 ML FLUSH IV FLUSH SCH ×2 (09:00→21:00)
[2017-04-30] MEDS: INSULIN DETEMIR 100 UNITS/ML VIAL SQ SCH ×2 (09:16→21:18)
[2017-04-30 09:18] VITALS: BP 138/81; PULSE 85; RESP 15; TEMP 97.6; O2SAT 95
[2017-04-30] MEDS ORDERED: DIATRIZOATE MEGLUM/DIATRIZOATE SOD 120 ML BTL (for RAD DIAG) PO ONE (10:00)
[2017-04-30] MEDS: ONDANSETRON HCL 4 MG/2 ML VIAL IVP PRN ×2 (10:17→16:44)
[2017-04-30] MEDS ORDERED: SODIUM CHLOR 0.9% 1000 ML INJ 1,000 ML IV ONE (12:30)
[2017-04-30] MEDS ORDERED: PANTOPRAZOLE SOD 40 MG DELAYED RELEASE TAB PO ONE (12:45)
[2017-04-30] MEDS: PANTOPRAZOLE SOD 40 MG DELAYED RELEASE TAB PO SCH (12:51)
[2017-04-30] MEDS: SODIUM CHLOR 0.9% 1000 ML INJ 1,000 ML IV SCH (13:56)
[2017-04-30 14:23] VITALS: BP 133/81; PULSE 95; RESP 15; TEMP 97.6; O2SAT 95
[2017-04-30 14:25] VITALS: BP 122/62; PULSE 91; RESP 18; TEMP 97.4; O2SAT 96
--- NOTE | 2017-04-30 14:43 | HHI.HP ---
HPI Service [facility] Primary Care Physician No Primary Care Physician Admission Diagnosis Diagnoses: Chief Complaint: Reinier pain Travel History International Travel<30 Days: No Contact w/Intl Traveler <30 Da: No Traveled to Known Affected Are: No History of Present Illness Patient is a 41-year-old gentleman with a history of uncontrolled diabetes due to nonadherence who comes to the emergency room complaining of 3 days of nausea with vomiting and diarrhea. Abdominal pain is severe and worse with food. He thought he may have seen some blood in his emesis but is not sure. He has a history of diverticular disease in H. pylori in the past. He did have upper and lower endoscopy done in September of this year which showed erosive gastritis and patient has now follow-up with any primary doctor's. He also fevers or chills. He says the pain is severe in the right lower quadrant. CT of abdomen pelvis done in the [facility] emergency room does not show any acute intra-abdominal findings. This point patient says the pain is intolerable and he would like further evaluation. Of note his blood sugars quite uncontrolled and his single A1c is 10. He reports nonadherence due to lack of funds. Patient is observed in the hospital for IV hydration for further evaluation of severe abdominal pain Review of Systems Constitutional: DENIES: Diaphoretic episodes, Fatigue, Fever, Weight gain, Weight loss, Chills, Dizziness, Change in appetite, Night Sweats Endocrine: DENIES: Heat/cold intolerance, Polydipsia, Polyuria, Polyphagia Eyes: DENIES: Blurred vision, Diplopia, Eye inflammation, Eye pain, Vision loss , Photosensitivity, Double Vision Ears, nose, mouth, throat: DENIES: Tinnitus, Hearing loss, Vertigo, Nasal discharge, Oral lesions, Throat pain, Hoarseness, Ear Pain, Running Nose, Epistaxis, Sinus Pain, Toothache, Odynophagia Respiratory: DENIES: Apneas, Cough, Snoring, Wheezing, Hemoptysis, Sputum production, Shortness of breath Cardiovascular: DENIES: Chest pain, Palpitations, Syncope, Dyspnea on Exertion , PND, Lower Extremity Edema, Orthopnea, Claudication Gastrointestinal: COMPLAINS OF: Abdominal pain, Diarrhea, Vomiting Genitourinary: DENIES: Sexual dysfunction, Urinary frequency, Urinary incontinence, Urgency, Hematuria, Dysuria, Nocturia, Penile Discharge, Testicular Pain, Testicular Swelling Musculoskeletal: DENIES: Joint pain, Muscle aches, Stiffness, Joint Swelling, Back pain, Neck pain Integumentary: DENIES: Abnormal pigmentation, Nail changes, Pruritus, Rash Hematologic/lymphatic: DENIES: Bruising, Lymphadenopathy Immunologic/allergic: DENIES: Eczema, Urticaria Neurologic: DENIES: Abnormal gait, Headache, Localized weakness, Paresthesias, Seizures, Speech Problems, Tremor, Poor Balance Psychiatric: DENIES: Anxiety, Confusion, Mood changes, Depression, Hallucinations, Agitation, Suicidal Ideation, Homicidal Ideation, Delusions Except as stated in HPI: all other systems reviewed are Neg Past Family Social History Past Medical History Diabetes Gastritis due to H. pylori Diverticular disease Past Surgical History Cholecystectomy, mastoid Reported Medications Reviewed in the EMR, denies medications due to poor adherence Allergies: Coded Allergies: No Known Allergies (Verified Adverse Reaction, Unknown, 04/30/17) Active Ordered Medications Reviewed in the EMR Family History Mother from complications of diabetes, father from massive heart Social History Patient smokes a half pack a day for the last 30 years, no alcohol, unemployed Physical Exam Vital Signs Vital Signs Date Time Temp Pulse Resp B/P (MAP) Pulse Ox O2 Delivery O2 Flow Rate FiO2 04/30/17 09:18 97.6 85 15 138/81 (100) 95 04/30/17 05:36 97.6 85 18 126/78 (94) 96 Physical Exam GENERAL: This is a well-nourished, well-developed patient, in no apparent distress. SKIN: No rashes, ecchymoses or lesions. Cool and dry. HEAD: Atraumatic. Normocephalic. No temporal or scalp tenderness. EYES: Pupils equal round and reactive. Extraocular motions intact. No scleral icterus. No injection or drainage. ENT: Nose without bleeding, purulent drainage or septal hematoma. Throat without erythema, tonsillar hypertrophy or exudate. Uvula midline. Airway patent. NECK: Trachea midline. No JVD or lymphadenopathy. Supple, nontender, no meningeal signs. CARDIOVASCULAR: Regular rate and rhythm without murmurs, gallops, or rubs. RESPIRATORY: Clear to auscultation. Breath sounds equal bilaterally. No wheezes , rales, or rhonchi. GASTROINTESTINAL: Right lower quadrant pain Abdomen soft, nondistended. No hepato-splenomegaly, or palpable masses. No guarding. MUSCULOSKELETAL: Extremities without clubbing, cyanosis, or edema. No joint tenderness, effusion, or edema noted. No calf tenderness. Negative Homans sign bilaterally. NEUROLOGICAL: Awake and alert. Cranial nerves II through XII intact. Motor and sensory grossly within normal limits. Five out of 5 muscle strength in all muscle groups. Normal speech. Laboratory Labs completed at the [place] [facility] 04/[address] abdomen pelvis with IV contrast 04/29 shows no acute findings Caprini VTE Risk Assessment Caprini VTE Risk Assessment: Mod/High Risk (score >= 2) Caprini Risk Assessment Model Point Value = 1 Point Value = 2 Point Value = 3 Point Value = 5 Age 41-60 Minor surgery BMI > 25 kg/m2 Swollen legs Varicose veins or History of unexplained or recurrent spontaneous Oral contraceptives or hormone replacement Sepsis (< 1 month) Serious lung disease, including pneumonia (< 1 month) Abnormal pulmonary function Acute myocardial infarction Congestive heart failure (< 1 month) History of inflammatory bowel disease Medical patient at bed rest Age 61-74 Arthroscopic surgery Major open surgery (> 45 min) Laparoscopic surgery (> 45 min) Malignancy Confined to bed (> 72 hours) Immobilizing plaster cast Central venous access Age >= 75 History of VTE Family history of VTE Factor V Leiden Prothrombin [id number] Lupus anticoagulant Anticardiolipin antibodies Elevated serum homocysteine Heparin-induced thrombocytopenia Other congenital or acquired thrombophilia Stroke (< 1 month) Elective arthroplasty Hip, pelvis, or leg fracture Acute spinal cord injury (< 1 month) Prophylaxis Regimen Total Risk Factor Score Risk Level Prophylaxis Regimen 0-1 Low Early ambulation 2 Moderate Order ONE of the following: *Sequential Compression Device (SCD) *Heparin 5000 units SQ BID 3-4 Higher Order ONE of the following medications: *Heparin 5000 units SQ TID *Enoxaparin/Lovenox 40 mg SQ daily (WT < 150 kg, CrCl > 30 mL/min) *Enoxaparin/Lovenox 30 mg SQ daily (WT < 150 kg, CrCl > 10-29 mL/min) *Enoxaparin/Lovenox 30 mg SQ BID (WT < 150 kg, CrCl > 30 mL/min) AND/OR *Sequential Compression Device (SCD) 5 or more Highest Order ONE of the following medications: *Heparin 5000 units SQ TID (Preferred with Epidurals) *Enoxaparin/Lovenox 40 mg SQ daily (WT < 150 kg, CrCl > 30 mL/min) *Enoxaparin/Lovenox 30 mg SQ daily (WT < 150 kg, CrCl > 10-29 mL/min) *Enoxaparin/Lovenox 30 mg SQ BID (WT < 150 kg, CrCl > 30 mL/min) AND *Sequential Compression Device (SCD) Assessment and Plan Problem List: (1) Abdominal pain ICD Code: R10.9 - Abdominal pain Status: Acute Plan: With nausea and vomiting. May be related to uncontrolled diabetes versus pancreatitis secondary to uncontrolled triglycerides(due to diabetes) Follow-up lipid panel Control diabetes with insulin IV hydration Patient education GI evaluation on Protonix (history of H. pylori and gastritis, EGD/colonoscopy on 10/08 which found erosive gastritis and hiatal hernia.) (2) Diabetes mellitus with hyperglycemia ICD Code: E11.65 - Type 2 diabetes mellitus with hyperglycemia Status: Acute Plan: Hemoglobin A1c is 10.1 Patient with uncontrolled diabetes due to nonadherence to medical treatment and lack of medical follow-up Patient education provided Discussed Condition With patient, Brooklyn Lebron MD Apr 30, 2017 14:43
[2017-04-30 17:26] VITALS: BP 130/77; PULSE 92; RESP 14; TEMP 97.2; O2SAT 96
[2017-04-30] MEDS ORDERED: metroNIDAZOLE 500 MG INJ 100 ML IV SCH (18:00)
[2017-04-30] MEDS: CIPROFLOXACIN 400 MG PREMIX 200 ML IV SCH (19:06)
[2017-04-30 20:00] VITALS: BP 133/88; PULSE 96; RESP 20; TEMP 97.7; O2SAT 96
[2017-04-30] MEDS: metroNIDAZOLE 500 MG INJ 100 ML IV SCH (21:08)
--- NOTE | 2017-04-30 22:12 | MB ---
cc: LISSETTE COYNE M.D. DATE OF CONSULTATION: 04/30/2017 DATE OF 1975 REASON FOR CONSULTATION Abdominal pain. HISTORY OF PRESENT ILLNESS: Mr. Jefferson is a 41-year-old gentleman with history of uncontrolled diabetes secondary to noncompliance secondary to financial issue, came to the emergency room with complaints of nausea, vomiting, diarrhea, abdominal pain for the last three days. The patient stated he may have had some bloody emesis. The patient had a history of H. Pylori, diverticulosis, had an endoscopy and colonoscopy in September of this year which showed gastritis, H. pylori positive. The patient had on and off pain in the right lower quadrant for the last couple of years. He stated every time he has an attack, he has pain in the right lower quadrant associated with diarrhea, nausea and vomiting. In the past he had extensive workup including CT angiogram, MRCP, multiple CT of the abdomen and pelvis, imaging. He was evaluated by surgery. No etiology for his abdominal pain was found. The patient has a history of cholecystectomy in 1999, stated that the symptoms were similar. According to him, his gallbladder was inflamed and maybe he had gallstones but he is not quite sure. He also had a history of intussusception many years ago. So far, imaging done on multiple admissions did not show that. PAST MEDICAL HISTORY: 1. Diabetes, noncompliance. 2. H. Pylori. 3. Gastritis. 4. Diverticular disease. 5. Cholecystectomy. 6. Mastoid surgery. MEDICATIONS None ALLERGIES None. FAMILY HISTORY Diabetes, coronary artery disease. SOCIAL HISTORY: Smokes half-pack per day for 30 years. Denies alcohol use. CURRENT MEDICATIONS 1. Protonix. 2. Insulin. 3. Tylenol. 4. Zofran 5. Naloxone. 6. Glucagon. REVIEW OF SYSTEMS: Denies any fever or chills, weight loss or weight gain. ENT: No alteration in baseline hearing or visual acuity. Pulmonary: Denies any chest pain, shortness of breath. Gastrointestinal: As above. Genitourinary: Denies dysuria, hematuria. Hematologic: Denies any history of anemia or bleeding disorder. Skin: No alteration in baseline skin lesion. Neurologic: No history of TIA or CVA kind of symptoms. PHYSICAL EXAMINATION: On clinical examination patient is sitting comfortably in bed in mild distress. He feels nauseous, denies any vomiting, did not have a bowel movement since yesterday. VITAL SIGNS: Temperature 97.6, pulse 92, respiratory rate 14, blood pressure 130/77. HEENT: PERRLA. Neck: No JVD. No lymphadenopathy. Chest: Clear to auscultation and palpation. Cardiovascular: S1-S2, no murmur. Abdomen: Soft, tender in the right lower quadrant. CUSTOMS VERIFIER: Awake, alert, oriented x3. No focal signs identified. IMAGING STUDIES: CT of the abdomen and pelvis done today in [place] showed negative CT. LABORATORY DATA: Hemoglobin 18, secondary to dehydration, white count 8.2, platelets 337. PT/INR normal. Chemistry: Essentially normal except for glucose 192 and a hemoglobin A1c 10.1, liver enzymes essentially normal. As I mentioned, he had endoscopy in September of 2016, that was suggestive of esophagitis, gastritis, duodenitis. A colonoscopy was performed which was within normal limits. Colonoscopy preparation was poor, but no gross lesions were seen. IMPRESSION: Recurrent abdominal pain in the right lower quadrant, unclear etiology, possible infectious gastroenteritis, Diarrhea, abdominal pain in the right lower quadrant possible infectious gastroenteritis ,less likely inflammatory bowel disease, appendicitis or intussusception Recurrent nausea and vomiting, uncontrolled diabetes, possible gastroparesis, H. Pylori. History unclear as to whether he received treatment or not. Noncompliance RECOMMENDATIONS Clear liquid diet for now. Start Cipro and Flagyl, stool for ova and parasites, WBC, C. Difficile. If this is negative, may consider small-bowel follow-through and possible repeat colonoscopy. If worsening pain, consider surgical consultation. Thank you for referring her to our office for consultation. Further recommendations will depend on the patient's clinical status and the above results. Lissette Coyne MD BSB/PIPE /5:58 PM /9:26 PM ABI
[2017-05-01] VITALS: BP 120/84; PULSE 96; RESP 20; TEMP 98.5; O2SAT 97
[2017-05-01] MEDS: SODIUM CHLOR 0.9% 1000 ML INJ 1,000 ML IV SCH ×4 (00:18→20:04)
[2017-05-01] MEDS: MORPHINE SULFATE 4 MG/ML INJ IV PUSH PRN ×6 (00:19→23:57)
[2017-05-01] MEDS: metroNIDAZOLE 500 MG INJ 100 ML IV SCH ×3 (03:40→19:59)
[2017-05-01] MEDS: CIPROFLOXACIN 400 MG PREMIX 200 ML IV SCH ×2 (06:08→17:08)
[2017-05-01 06:15] LABS: CHLORIDE 106 MEQ/L (98-107); SODIUM (NA) 140 MEQ/L (136-145)
[2017-05-01 06:21] LABS: ANION GAP 9 MEQ/L (5-15); BICARBONATE 24.8 MEQ/L (21.0-32.0); BLOOD UREA NITROGEN 8 MG/DL (7-18)
[2017-05-01 06:24] LABS: GLOMERULAR FILTRATION RATE 115 ML/MIN (>89)
[2017-05-01] MEDS: SODIUM CHLORIDE 0.9% FLUSH 10 ML FLUSH IV FLUSH SCH ×2 (09:00→20:00)
[2017-05-01] MEDS: PANTOPRAZOLE SOD 40 MG DELAYED RELEASE TAB PO SCH (09:22)
[2017-05-01] MEDS: INSULIN ASPART SUPPLEMENTAL SCALE SQ SCH ×4 (09:23→21:42)
[2017-05-01] MEDS: INSULIN DETEMIR 100 UNITS/ML VIAL SQ SCH ×2 (09:24→21:43)
[2017-05-01 09:29] VITALS: BP 125/62; PULSE 92; RESP 16; TEMP 97.3; O2SAT 97
[2017-05-01 10:43] LABS: HDL CHOLESTEROL 23.3 MG/DL (40.0-60.0)
[2017-05-01] MEDS: ONDANSETRON HCL 4 MG/2 ML VIAL IVP PRN ×2 (11:06→17:08)
[2017-05-01 11:24] LABS: HEMOGLOBIN A1a 1.6 %; HEMOGLOBIN A1b 1.2 %; HEMOGLOBIN Ao 78.2 %; HEMOGLOBIN F 3.1 %; HEMOGLOBIN LA1C 2.2 %
--- NOTE | 2017-05-01 13:19 | HHI.PR ---
Subjective Remarks Patient seen and evaluated today in follow-up for abdominal pain. Gastrology evaluation appreciated. Patient still complaining of moderate to severe abdominal pain although slightly improved with IV narcotics. Antibiotics started. Patient with vomiting today No bowel movement and decreased bowel sounds in exam Objective Vitals Vital Signs Date Time Temp Pulse Resp B/P (MAP) Pulse Ox O2 Delivery O2 Flow Rate FiO2 05/01/17 09:29 97.3 92 16 125/62 (83) 97 05/01/17 00:00 98.5 96 20 120/84 (96) 97 04/30/17 20:00 97.7 96 20 133/88 (103) 96 04/30/17 17:26 97.2 92 14 130/77 (94) 96 04/30/17 14:25 97.4 91 18 122/62 (82) 96 I/O 04/30/17 04/30/17 04/30/17 05/01/17 05/01/17 05/01/17 07:00 15:00 23:00 07:00 15:00 23:00 Intake Total 1000 ml 1353 ml 1336 ml Balance 1000 ml 1353 ml 1336 ml Intake Oral 500 ml 240 ml IV Total 1000 ml 853 ml 1096 ml # Voids 1 0 1 # Bowel Movements 0 Result Diagram: 05/01/17 0542 Objective Remarks GENERAL: This is a well-nourished, well-developed patient, in no apparent distress. CARDIOVASCULAR: Regular rate and rhythm without murmurs, gallops, or rubs. RESPIRATORY: Clear to auscultation. Breath sounds equal bilaterally. No wheezes , rales, or rhonchi. GASTROINTESTINAL: Abdomen soft, hypoactive bowel sounds, tender left lower quadrant MUSCULOSKELETAL: Extremities without clubbing, cyanosis, or edema. NEURO: Alert & Oriented x4 to person, place, time, situation. Moves all ext x4 A/P Problem List: (1) Abdominal pain ICD Code: R10.9 - Abdominal pain Status: Acute Plan: With nausea and vomiting. May be related to uncontrolled diabetes versus pancreatitis secondary to uncontrolled triglycerides(due to diabetes) Patient with elevated triglycerides and elevated lipase Control diabetes with insulin IV hydration Patient education Continue antibiotics for possible gastroenteritis, Rx IV abx Rule out ileus with flat and upright abdomen (2) Diabetes mellitus with hyperglycemia ICD Code: E11.65 - Type 2 diabetes mellitus with hyperglycemia Status: Acute Plan: Hemoglobin A1c is 10.1 due to nonadherence Patient with uncontrolled diabetes due to nonadherence to medical treatment and lack of medical follow-up Patient education provided Discharge Planning d/c in am if improved Brooklyn Bernal MD May 01, 2017 13:19
[2017-05-01 14:44] VITALS: BP 136/86; PULSE 78; RESP 16; TEMP 97.2; O2SAT 96
--- NOTE | 2017-05-01 15:29 | RADRPT ---
EXAM DATE/TIME: 05/01/2017 14:04 [facility] COMPARISON: No previous studies available for comparison. INDICATIONS : Abdominal pain. MEDICAL HISTORY : Hypercholesterolemia. Hypertension Pancreatitis. Diabetic. SURGICAL HISTORY : Cholecystectomy. Left mastoid surgery. ENCOUNTER: Subsequent ACUITY: 3 days PAIN SCORE: 9/10 LOCATION: Right abdomen FINDINGS: Supine and upright views of the abdomen were performed. The abdominal bowel gas pattern is normal. No air fluid levels are seen. No abnormal masses, calcifications, or organomegaly is seen. Post chol ecystectomy clips are noted. The visualized lower lungs are clear. No evidence of free intraperitone al gas. The osseous structures are unremarkable. CONCLUSION: No acute disease. Noam Zaragoza MD on May 01, 2017 at 15:26 Board Certified Radiologist. This report was verified electronically.
[2017-05-01] MEDS ORDERED: KETOROLAC TROMETHAMINE 30 MG/ML (IVP) VIAL IV PUSH ONE (17:30)
[2017-05-01 17:50] VITALS: BP 133/85; PULSE 83; RESP 15; TEMP 98.4; O2SAT 96
[2017-05-01 20:00] VITALS: BP 137/78; PULSE 81; RESP 17; TEMP 98.8; O2SAT 96
[2017-05-02] VITALS: BP 133/76; PULSE 79; RESP 18; TEMP 98.7; O2SAT 95
[2017-05-02] MEDS: metroNIDAZOLE 500 MG INJ 100 ML IV SCH ×3 (04:20→21:05)
[2017-05-02] MEDS: MORPHINE SULFATE 4 MG/ML INJ IV PUSH PRN ×2 (04:22→09:27)
[2017-05-02] MEDS: CIPROFLOXACIN 400 MG PREMIX 200 ML IV SCH ×2 (06:29→17:23)
[2017-05-02] MEDS: SODIUM CHLOR 0.9% 1000 ML INJ 1,000 ML IV SCH ×4 (06:30→23:35)
--- NOTE | 2017-05-02 07:57 | HHI.GIFU ---
GI Follow-up Note Consult Follow-up Subjective: Patient laying in bed comfortably, still abdominal pain, passing faltus, no BM yet.Some nausea, minimal vomiting.Old records reviewed-had extensive w-up same reason, no etiology found Objective: PHYSICAL EXAMINATION: Vitals signs stable No fever Laboratory Tests Test 05/01/17 05:42 Blood Urea Nitrogen 8 MG/DL Creatinine 0.74 MG/DL Random Glucose 133 MG/DL Calcium Level 7.8 MG/DL Sodium Level 140 MEQ/L Potassium Level 4.0 MEQ/L Chloride Level 106 MEQ/L Carbon Dioxide Level 24.8 MEQ/L Anion Gap 9 MEQ/L Estimat Glomerular Filtration Rate 115 ML/MIN Hemoglobin A1c 9.5 % Triglycerides Level 788 MG/DL Cholesterol Level 254 MG/DL LDL Cholesterol MG/DL HDL Cholesterol 23.3 MG/DL Cholesterol/HDL Ratio 10.90 RATIO Lipase 432 U/L HEENT: Pupils round and reactive to light; normocephalic; atraumatic; no jaundice. Throat is clear. NECK: Neck is supple, no JVD, no lymphadenopathy. CHEST: Chest is clear to auscultation and percussion. CARDIAC: Regular rate and rhythm with no murmur gallop or rubs. ABDOMEN: Soft, nondistended, tender lower abdomen ; no hepatosplenomegaly; bowel sounds are present in all four quadrants. EXTREMITIES: No clubbing, cyanosis, or edema. SKIN: Normal; no rash; no jaundice. CENTRIFUGE SEPARATOR TENDER: No focal deficits; alert and oriented times three. Available Data (labs, X- Rays, Procedues) : Laboratory Tests Test 05/01/17 05:42 Blood Urea Nitrogen 8 MG/DL Creatinine 0.74 MG/DL Random Glucose 133 MG/DL Calcium Level 7.8 MG/DL Sodium Level 140 MEQ/L Potassium Level 4.0 MEQ/L Chloride Level 106 MEQ/L Carbon Dioxide Level 24.8 MEQ/L Anion Gap 9 MEQ/L Estimat Glomerular Filtration Rate 115 ML/MIN Hemoglobin A1c 9.5 % Triglycerides Level 788 MG/DL Cholesterol Level 254 MG/DL LDL Cholesterol MG/DL HDL Cholesterol 23.3 MG/DL Cholesterol/HDL Ratio 10.90 RATIO Lipase 432 U/L ASSESSMENT/PLAN: uncontrolled diabetes secondary noncompliance diarrhea -resolved abdominal pain -possible ileus -no indication of obstruction mild pancreatitis possible secondary uncontrolled diabetes and hypertriglyceridemia Recommendations SBFT with Gastrografin today fu stool studies if worse repeat cta abdomen/pelvis and consult surgery cbc, cmp, lipase, porphyrins It was a pleasure seeing Bucky Jefferson III. Thank you for this consult. Entered by: Lissette De Anda MD May 02, 2017 07:57
[2017-05-02 08:00] VITALS: BP 132/73; PULSE 94; RESP 18; TEMP 97.7; O2SAT 96
[2017-05-02] MEDS: INSULIN ASPART SUPPLEMENTAL SCALE SQ SCH ×4 (08:00→21:24)
[2017-05-02] MEDS: INSULIN DETEMIR 100 UNITS/ML VIAL SQ SCH ×2 (09:00→21:24)
[2017-05-02] MEDS: SODIUM CHLORIDE 0.9% FLUSH 10 ML FLUSH IV FLUSH SCH ×2 (09:00→21:00)
[2017-05-02] MEDS: PANTOPRAZOLE SOD 40 MG DELAYED RELEASE TAB PO SCH (09:26)
[2017-05-02] MEDS: ONDANSETRON HCL 4 MG/2 ML VIAL IVP PRN (09:28)
[2017-05-02 09:37] LABS: AUTOMATED NEUTROPHIL # 3.4 TH/MM3 (1.8-7.7); BASOPHIL % 0.6 % (0.0-2.0); EOSINOPHIL # 0.2 TH/MM3 (0-0.4); EOSINOPHIL % 2.7 % (0.0-4.0); HEMATOCRIT 45.5 % (39.0-51.0); HEMO FLAGS DIFF FINAL; LYMPH % 31.1 % (9.0-44.0); LYMPHOCYTE # 1.9 TH/MM3 (1.0-4.8); MEAN CELL VOLUME 89.7 FL (80.0-100.0); MEAN CORPUSCULAR HEMOGLOBIN 29.3 PG (27.0-34.0); MEAN CORPUSCULAR HGB CONC 32.7 % (32.0-36.0); MONO % 6.4 % (0.0-8.0); NEUT % 59.2 % (16.0-70.0); PLATELET COUNT 262 TH/MM3 (150-450); RED BLOOD COUNT 5.08 MIL/MM3 (4.50-5.90); RED CELL DISTRIBUTION WIDTH 12.3 % (11.6-17.2); WHITE BLOOD COUNT 5.9 TH/MM3 (4.0-11.0)
[2017-05-02 09:58] LABS: CHLORIDE 108 MEQ/L (98-107); POTASSIUM 3.6 MEQ/L (3.5-5.1); SODIUM (NA) 139 MEQ/L (136-145)
[2017-05-02 10:02] LABS: ANION GAP 8 MEQ/L (5-15); BICARBONATE 23.4 MEQ/L (21.0-32.0); BLOOD UREA NITROGEN 7 MG/DL (7-18)
[2017-05-02 10:05] LABS: ALT (GPT) 168 U/L (12-78); AST (GOT) 59 U/L (15-37); GLOMERULAR FILTRATION RATE 142 ML/MIN (>89)
[2017-05-02 10:06] LABS: TOTAL BILIRUBIN ADULT 0.6 MG/DL (0.2-1.0)
[2017-05-02 10:07] LABS: ALKALINE PHOSPHATASE 113 U/L (45-117)
[2017-05-02 10:27] LABS: WESTERGREN SEDIMENTATION RATE 4 mm/hr (0-15)
--- NOTE | 2017-05-02 11:29 | HHI.PR ---
Subjective Remarks Still with nausea and vomiting and severe pain. Small bowel follow-through pending. No bowel movements and little flatus Imaging is unremarkable Objective Vitals Vital Signs Date Time Temp Pulse Resp B/P (MAP) Pulse Ox O2 Delivery O2 Flow Rate FiO2 05/02/17 08:00 97.7 94 18 132/73 (92) 96 05/02/17 00:00 98.7 79 18 133/76 (95) 95 05/01/17 20:00 98.8 81 17 137/78 (97) 96 05/01/17 17:50 98.4 83 15 133/85 (101) 96 05/01/17 14:44 97.2 78 16 136/86 (103) 96 I/O 05/01/17 05/01/17 05/01/17 05/02/17 05/02/17 05/02/17 07:00 15:00 23:00 07:00 15:00 23:00 Intake Total 1336 ml 100 ml 1200 ml 1345 ml Balance 1336 ml 100 ml 1200 ml 1345 ml Intake Oral 240 ml 1000 ml IV Total 1096 ml 100 ml 200 ml 1345 ml # Voids 1 3 3 # Bowel Movements 0 Result Diagram: 05/02/17 0920 05/02/17 0920 Objective Remarks GENERAL: This is a well-nourished, well-developed patient, in no apparent distress. CARDIOVASCULAR: Regular rate and rhythm without murmurs, gallops, or rubs. RESPIRATORY: Clear to auscultation. Breath sounds equal bilaterally. No wheezes , rales, or rhonchi. GASTROINTESTINAL: Abdomen soft, hypoactive bowel sounds, tender left lower quadrant MUSCULOSKELETAL: Extremities without clubbing, cyanosis, or edema. NEURO: Alert & Oriented x4 to person, place, time, situation. Moves all ext x4 A/P Problem List: (1) Abdominal pain ICD Code: R10.9 - Abdominal pain Status: Acute Plan: Persistent With nausea and vomiting and severe pain improved with IV narcotics. May be related to uncontrolled diabetes versus pancreatitis secondary to uncontrolled triglycerides(due to diabetes) Patient with elevated triglycerides and elevated lipase Control diabetes with insulin IV hydration, IV morphine Patient education Continue antibiotics (IV metronidazole/Cipro) for possible gastroenteritis, Rx IV abx X-ray nonspecific bowel pattern Small bowel series pending today (2) Diabetes mellitus with hyperglycemia ICD Code: E11.65 - Type 2 diabetes mellitus with hyperglycemia Status: Acute Plan: Hemoglobin A1c is 9.5 due to nonadherence Patient with uncontrolled diabetes due to nonadherence to medical treatment and lack of medical follow-up Patient education provided Brooklyn Bernal MD May 02, 2017 11:29
--- NOTE | 2017-05-02 13:15 | RADRPT ---
EXAM DATE/TIME: 05/02/2017 09:07 [facility] COMPARISON: No previous studies available for comparison. INDICATIONS : Abdominal pain & no bowel movement x 3 days FLUORO TIME: 0.9 minutes IMAGE COUNT: CONTRAST: Gastroloren IMAGING TIME(S): 15 min, 30 min, 45 min, 1 hr, 1.5 hrs2 hr MEDICAL HISTORY : Hypercholesterolemia. Hypertension Pancreatitis. Diabetic. SURGICAL HISTORY : Cholecystectomy. Left mastoid surgery. ENCOUNTER: Subsequent ACUITY: 3 days PAIN SCORE: 6/10 LOCATION: Right abdomen FINDINGS: Preliminary film demonstrates surgical clips in the right upper quadrant. The bowel gas pattern is wi thin normal limits. There is a moderate amount of stool in the colon. No abnormal dilatation. The stomach is grossly unremarkable. Examination of the small bowel demonstrates normal mucosal pattern involving the jejunum and ileum. There is no evidence of mass or obstruction. No intraluminal filling defects are identified. Small bowel transit time is normal at 120 minutes. Fluoroscopy of the abdomen and terminal ileum demonstra farshad no abnormality. Contrast is also noted throughout the colon down to the rectum. CONCLUSION: Unremarkable small bowel examination. Wade Mancini MD on May 02, 2017 at 13:11 Board Certified Radiologist. This report was verified electronically.
[2017-05-02 16:00] VITALS: BP 134/86; PULSE 67; RESP 20; TEMP 97.8; O2SAT 97
[2017-05-02 17:03] LABS: C. DIFF EPI 027 PRESUMPTIVE NEGATIVE (NEGATIVE)
[2017-05-02] MEDS: MORPHINE SULFATE 2 MG/ML INJ IV PUSH PRN (17:23)
[2017-05-02 20:00] VITALS: BP 118/77; PULSE 69; RESP 18; TEMP 97.8; O2SAT 97
[2017-05-03] VITALS: BP 108/72; PULSE 63; RESP 18; TEMP 97.9; O2SAT 96
[2017-05-03] MEDS: MORPHINE SULFATE 2 MG/ML INJ IV PUSH PRN ×5 (00:01→21:20)
[2017-05-03] MEDS: metroNIDAZOLE 500 MG INJ 100 ML IV SCH ×3 (03:51→19:41)
[2017-05-03] MEDS: CIPROFLOXACIN 400 MG PREMIX 200 ML IV SCH ×2 (05:55→17:17)
[2017-05-03 08:00] VITALS: BP 118/73; PULSE 55; RESP 19; TEMP 97.5; O2SAT 95
[2017-05-03] MEDS: INSULIN ASPART SUPPLEMENTAL SCALE SQ SCH ×4 (08:00→21:19)
[2017-05-03] MEDS: SODIUM CHLORIDE 0.9% FLUSH 10 ML FLUSH IV FLUSH SCH ×2 (09:00→19:41)
[2017-05-03 09:11] LABS: CHLORIDE 106 MEQ/L (98-107); POTASSIUM 3.8 MEQ/L (3.5-5.1); SODIUM (NA) 139 MEQ/L (136-145)
[2017-05-03] MEDS: INSULIN DETEMIR 100 UNITS/ML VIAL SQ SCH ×2 (09:12→21:18)
[2017-05-03] MEDS: PANTOPRAZOLE SOD 40 MG DELAYED RELEASE TAB PO SCH (09:12)
[2017-05-03 09:15] LABS: ANION GAP 7 MEQ/L (5-15); BICARBONATE 25.7 MEQ/L (21.0-32.0); BLOOD UREA NITROGEN 6 MG/DL (7-18)
[2017-05-03 09:17] LABS: ALT (GPT) 161 U/L (12-78)
[2017-05-03 09:18] LABS: AST (GOT) 66 U/L (15-37); GLOMERULAR FILTRATION RATE 123 ML/MIN (>89)
[2017-05-03 09:19] LABS: TOTAL BILIRUBIN ADULT 0.7 MG/DL (0.2-1.0)
[2017-05-03 09:20] LABS: ALKALINE PHOSPHATASE 157 U/L (45-117)
[2017-05-03 12:00] VITALS: BP 126/80; PULSE 52; RESP 20; TEMP 98.4; O2SAT 96
[2017-05-03] MEDS: SODIUM CHLOR 0.9% 1000 ML INJ 1,000 ML IV SCH ×2 (12:11→19:41)
--- NOTE | 2017-05-03 12:17 | RADRPT ---
EXAM DATE/TIME: 05/03/2017 10:39 [facility] COMPARISON: No previous studies available for comparison. INDICATIONS : Abdominal pain. MEDICAL HISTORY : Diabetes mellitus type 2. SURGICAL HISTORY : Cholecystectomy. ENCOUNTER: Initial ACUITY: 1 day PAIN SCORE: 5/10 LOCATION: Abdominal pain. TECHNIQUE: Multiplanar, multisequence magnetic resonance imaging of the abdomen was performed. High-resolution 3D dataset was utilized to reconstruct maximum-intensity projection (MIP) images. FINDINGS: INTRAHEPATIC BILE DUCTS: Within normal limits. No significant anatomical variant is present. EXTRAHEPATIC BILE DUCTS: The common bile duct measures 3 mm. No stone or filling defect is identified. GALLBLADDER: Surgically absent. LIVER: Normal size and signal intensity. No concerning liver lesion is identified on this non-contrast exam. PANCREAS: The main pancreatic duct is normal in size. There is no significant anatomical variant. Signal inte nsity is within normal limits. No mass is visualized on this non-contrast exam. OTHER: Bilateral subcentimeter renal cysts. Kidneys are otherwise unremarkable without evidence for hydronep hrosis. Visualized portions of bowel are grossly unremarkable. No ascites. CONCLUSION: 1. Status post cholecystectomy. 2. Normal common bile duct and pancreatic duct without evidence for stone or obstruction. Eyal Alfredo MD on May 03, 2017 at 12:10 Board Certified Radiologist. This report was verified electronically.
--- NOTE | 2017-05-03 14:05 | HHI.PR ---
Subjective Remarks Patient seen today in follow-up for abdominal pain. The pain is better after a bowel movement however he still has severe abdominal pain and is holding his belly and tears. He is requesting a surgical opinion Objective Vitals Vital Signs Date Time Temp Pulse Resp B/P (MAP) Pulse Ox O2 Delivery O2 Flow Rate FiO2 05/03/17 12:00 98.4 52 20 126/80 (95) 96 05/03/17 08:00 97.5 55 19 118/73 (88) 95 05/03/17 00:00 97.9 63 18 108/72 (84) 96 05/02/17 20:00 97.8 69 18 118/77 (91) 97 05/02/17 16:00 97.8 67 20 134/86 (102) 97 I/O 05/02/17 05/02/17 05/02/17 05/03/17 05/03/17 05/03/17 07:00 15:00 23:00 07:00 15:00 23:00 Intake Total 1345 ml 725 ml 1100 ml 1600 ml Balance 1345 ml 725 ml 1100 ml 1600 ml Intake Oral 725 ml 500 ml IV Total 1345 ml 1100 ml 1100 ml # Voids 3 2 2 2 # Bowel Movements 1 0 Result Diagram: 05/02/17 0920 05/03/17 0843 Imaging Last Impressions Cholangiopancreatography MRI 05/03/17 0000 Signed Impressions: Service Date/Time: Wednesday, May 03, 2017 10:39 - CONCLUSION: 1. Status post cholecystectomy. 2. Normal common bile duct and pancreatic duct without evidence for stone or obstruction. Eyal Alfredo MD Small Bowel X-Ray 05/02/17 0000 Signed Impressions: Service Date/Time: Tuesday, May 02, 2017 09:07 - CONCLUSION: Unremarkable small bowel examination. Wade Mancini MD Abdomen X-Ray 05/01/17 0000 Signed Impressions: Service Date/Time: April 14:04 - CONCLUSION: No acute disease. Noam Zaragoza MD Objective Remarks GENERAL: This is a well-nourished, well-developed patient, tearful and grabbing his abd CARDIOVASCULAR: Regular rate and rhythm without murmurs, gallops, or rubs. RESPIRATORY: Clear to auscultation. Breath sounds equal bilaterally. No wheezes , rales, or rhonchi. GASTROINTESTINAL: Abdomen soft, hypoactive bowel sounds, tender left lower quadrant MUSCULOSKELETAL: Extremities without clubbing, cyanosis, or edema. NEURO: Alert & Oriented x4 to person, place, time, situation. Moves all ext x4 A/P Problem List: (1) Abdominal pain ICD Code: R10.9 - Abdominal pain Status: Acute Plan: Persistent With nausea and vomiting and severe pain improved with IV narcotics. May be related to uncontrolled diabetes versus pancreatitis secondary to uncontrolled triglycerides(due to diabetes) Patient with elevated triglycerides and elevated lipase Control diabetes with insulin IV hydration,po pain meds Patient education Continue antibiotics (IV metronidazole/Cipro) for possible gastroenteritis, X-ray nonspecific bowel pattern Small bowel series, MRCP neg c diff negative (2) Diabetes mellitus with hyperglycemia ICD Code: E11.65 - Type 2 diabetes mellitus with hyperglycemia Status: Acute Plan: Hemoglobin A1c is 9.5 due to nonadherence Patient with uncontrolled diabetes due to nonadherence to medical treatment and lack of medical follow-up Patient education provided improved on current regimen Discharge Planning home pending surg Brooklyn Beard MD May 03, 2017 14:05
[2017-05-03 16:00] VITALS: BP 126/79; PULSE 66; RESP 18; TEMP 98.3; O2SAT 97
--- NOTE | 2017-05-03 18:40 | MB ---
cc: BRITTANY GRADY DATE OF CONSULTATION: 05/03/2017. REASON FOR CONSULTATION: Abdominal pain. PERSON REQUESTING CONSULTATION: Dr. Brooklyn Bernal. HISTORY OF PRESENT ILLNESS: The patient is a 41-year-old male who was admitted to [facility] for right-sided abdominal pain, recurrent. The patient is well-known to Dr. Spencer and has a history of diabetes and recurrent abdominal pain associated with nausea, vomiting, diarrhea which lasts for several days at a time. He has had multiple episode of this. The patient has undergone a previous workup including CT scan, endoscopies, MRCP, and CT angiogram as well as multiple laboratory values, Helicobacter pylori testing which was all negative with the exception of history of Helicobacter pylori positivity. The patient had a cholecystectomy in 1999 and he states the pain is different from when he had the gallbladder pain. The patient states this episode is recurrent pain, it is constant in the right upper quadrant and right lower quadrant as related to nausea, vomiting and diarrhea. Currently the only abnormality found was mild elevation in the transaminases. REVIEW OF SYSTEMS: A twelve-point review of systems was gone over with the patient and is negative except for the pertinent positives mentioned above in the history of present illness. PAST MEDICAL HISTORY: 1. Diabetes. 2. History of Helicobacter pylori. 3. Gastritis. 4. Diverticular disease. 5. History of cholecystectomy. 6. Cholelithiasis. 7. History of recurrent mastoid infections and mastoid surgery. PAST SURGICAL HISTORY: 1. Cholecystectomy. 2. Mastoid surgery. 3. Multiple endoscopies. HOME MEDICATIONS: None. ALLERGIES: NO KNOWN DRUG ALLERGIES. FAMILY HISTORY: Diabetes. Coronary artery disease. SOCIAL HISTORY: The patient smokes cigarettes daily. He denies alcohol use. He denies illicit drug use. PHYSICAL EXAMINATION: VITAL SIGNS: Blood pressure 120/80, heart rate 52, temperature 98.4 degrees. GENERAL: The patient is a well-developed, well-nourished male in no acute distress. HEAD, EYES, EARS, NOSE, THROAT: Head is normocephalic and atraumatic. Pupils equal, round and reactive to light. The sclerae are nonicteric. The oral cavity is clear. The airway is patent. NECK: The neck is supple. No jugular venous distention. LUNGS: Breath sounds present bilaterally. Nonlabored breathing pattern. HEART: Regular rate and rhythm. ABDOMEN: Abdomen soft and subjectively tender along the entire right side of the abdomen without rebound tenderness or peritonitis. Surgical scars are well-healed from his cholecystectomy. Normal bowel sounds. BACK: No costovertebral angle tenderness. EXTREMITIES: No cyanosis, clubbing or edema. NEUROLOGIC: The patient is alert and oriented times three. Nonfocal peripheral exam. Cranial nerves II through XII are grossly intact. Mood, affect and judgment intact. ASSESSMENT AND PLAN: The patient is a 41-year-old male with chronic recurrent right-sided abdominal pain of unknown etiology. I do agree with workup with Dr. Spencer. I feel that her workup for symptoms is appropriate. I do not feel the patient has any acute surgical process and requires no acute surgical intervention at this time. The patient's pain is controlled and he can follow up as an outpatient for further workup. I did discuss the role of diagnostic laparoscopy and the chronic and recurrent pain. I do not feel that this would be indicated at this time as Dr. Spencer is working the patient up from a GI medical point of view. If this becomes indicated in the future, I would be happy to see the patient back in my office. I did provide my contact information to the patient so he can follow up with me on a PRN basis. Thank you very much for this consultation. We will sign off. MD LUCINDA Kirkpatrick/SILVA /5:07 PM /6:20 PM
[2017-05-03 21:23] VITALS: BP 122/77; PULSE 57; RESP 16; TEMP 98.9; O2SAT 98
[2017-05-04 00:04] VITALS: BP 127/86; PULSE 67; RESP 18; TEMP 98; O2SAT 99
[2017-05-04] MEDS: MORPHINE SULFATE 2 MG/ML INJ IV PUSH PRN ×3 (01:48→10:15)
[2017-05-04] MEDS: SODIUM CHLOR 0.9% 1000 ML INJ 1,000 ML IV SCH (04:55)
[2017-05-04] MEDS: metroNIDAZOLE 500 MG INJ 100 ML IV SCH (04:55)
[2017-05-04] MEDS: CIPROFLOXACIN 400 MG PREMIX 200 ML IV SCH (05:46)
[2017-05-04 08:00] VITALS: BP 114/67; PULSE 61; RESP 16; TEMP 97.9; O2SAT 97
[2017-05-04] MEDS: INSULIN ASPART SUPPLEMENTAL SCALE SQ SCH (08:00)
--- NOTE | 2017-05-04 08:29 | HHI.DCPOC ---
Discharge Care Plan Diagnosis: (1) Abdominal pain Goals to Promote Your Health * To prevent worsening of your condition and complications * To maintain your health at the optimal level Directions to Meet Your Goals Take your medications as prescribed Follow your dietary instruction Follow activity as directed Keep your appointments as scheduled Take your immunizations and boosters as scheduled If your symptoms worsen call your PCP, if no PCP go to Urgent Care Center or Emergency Room Smoking is Dangerous to Your Health. Avoid second hand smoke Call the 24-hour hour crisis hotline for domestic abuse at Brooklyn Bernal MD May 04, 2017 08:29
[2017-05-04] MEDS ORDERED: OXYC1TAB63 PO (08:30)
[2017-05-04] MEDS ORDERED: CIPR-9 PO (08:30)
[2017-05-04] MEDS ORDERED: METR-1 PO (08:31)
--- NOTE | 2017-05-04 08:38 | HHI.DS ---
Discharge Summary Admission Date Apr 30, 2017 at 04:45 Discharge Date: May 04, 2017 Admitting Diagnosis abdominal pain (1) Abdominal pain ICD Code: R10.9 - Abdominal pain Status: Acute (2) Diabetes mellitus with hyperglycemia ICD Code: E11.65 - Type 2 diabetes mellitus with hyperglycemia Status: Acute Procedures none Brief History - From Admission Patient is a 41-year-old gentleman with a history of uncontrolled diabetes due to nonadherence who comes to the emergency room complaining of 3 days of nausea with vomiting and diarrhea. Abdominal pain is severe and worse with food. He thought he may have seen some blood in his emesis but is not sure. He has a history of diverticular disease in H. pylori in the past. He did have upper and lower endoscopy done in September of this year which showed erosive gastritis and patient has now follow-up with any primary doctor's. He also fevers or chills. He says the pain is severe in the right lower quadrant. CT of abdomen pelvis done in the deltoid emergency room does not show any acute intra-abdominal findings. This point patient says the pain is intolerable and he would like further evaluation. Of note his blood sugars quite uncontrolled and his single A1c is 10. He reports nonadherence due to lack of funds. Patient is observed in the hospital for IV hydration for further evaluation of severe abdominal pain CBC/BMP: 05/02/17 0920 05/03/17 0843 Significant Findings Laboratory Tests Test 05/02/17 09:20 05/02/17 14:40 05/03/17 08:43 Mean Platelet Volume 6.7 FL (7.0-11.0) Random Glucose 132 MG/DL (74-106) 139 MG/DL (74-106) Total Protein 5.7 GM/DL (6.4-8.2) Albumin 2.7 GM/DL (3.4-5.0) 3.2 GM/DL (3.4-5.0) Calcium Level 7.8 MG/DL (8.5-10.1) 8.1 MG/DL (8.5-10.1) Aspartate Amino Transf (AST/SGOT) 59 U/L (15-37) 66 U/L (15-37) Alanine Aminotransferase (ALT/SGPT) 168 U/L (12-78) 161 U/L (12-78) Chloride Level 108 MEQ/L (98-107) Blood Urea Nitrogen 6 MG/DL (7-18) Alkaline Phosphatase 157 U/L (45-117) PE at Discharge GENERAL: This is a well-nourished, well-developed patient, tearful and grabbing his abd CARDIOVASCULAR: Regular rate and rhythm without murmurs, gallops, or rubs. RESPIRATORY: Clear to auscultation. Breath sounds equal bilaterally. No wheezes , rales, or rhonchi. GASTROINTESTINAL: Abdomen soft, hypoactive bowel sounds, tender left lower quadrant MUSCULOSKELETAL: Extremities without clubbing, cyanosis, or edema. NEURO: Alert & Oriented x4 to person, place, time, situation. Moves all ext x4 Hospital Course This patient is a 41-year-old gentleman with a history of uncontrolled diabetes and vague abdominal pain. Multiple imaging studies were unremarkable. He was empirically started on antibiotics. Patient had some mild elevations LFTs. He was seen by gastroneurology in general surgery. Recommendations were for supportive care and possible follow up at [facility]. If his condition does worsen patient should return to the hospital for further evaluation by surgery. At this point we have offered this patient all of the medical investigations we have to offer in have not found a cause for his abdominal pain. Pt Condition on Discharge: Good Discharge Disposition: Discharge Home Discharge Time: > 30 minutes Discharge Instructions DIET: Follow Instructions for: As Tolerated, No Restrictions Activities you can perform: Regular-No Restrictions Follow up Referrals: PCP Follow-up - 1 Week Surgical - 4 Weeks with Guy Michel MD New Medications: Ciprofloxacin (Cipro) 500 Mg Tab 500 MG PO BID for Infection, #10 TAB 0 Refills Metronidazole (Flagyl) 500 Mg Tab 500 MG PO TID for Infection, #30 TAB 0 Refills Continued Medications: Dxfpxzkcss-Uqpteuhmkaezd-Pxhalsbi (Fioricet) 50-300-40 Mg Cap 1 CAP PO Q4H PRN for HEADACHE, #20 CAP 0 Refills Insulin Aspart Inj (Novolog Inj) 1,000 Unit/10 Ml Vial 1-9 UNITS SQ ACHS for Blood Sugar Management, #10 ML 0 Refills Max dose at bedtime:( )units; sugars less than 70,(0)units; sugars 150-199,(1) unit; sugars 200-249,(3) units; sugars 250-299,(5) units; sugars 300-349,(7) units; sugars greater than 349,(9) units Insulin Detemir Inj (Levemir Inj) 1,000 unit/ 10 ML Vial 15 UNITS SQ BID for Blood Sugar Management, #1 VIAL Metoclopramide (Reglan) 10 Mg Tab 10 MG PO TIDAC PRN for HEADACHE, #15 TAB 0 Refills Nicotine (Eq Nicotine) 21 Mg/24 Hr Dis 1 PATCH T-DERMAL DAILY for smoking cessation, #30 PATCH Oxycodone-Acetaminophen (Oxycodone-Acetaminophen) 5-325 mg Tab 1 TAB PO Q4H PRN for pain, #31 TAB (This prescription has been renewed) Pantoprazole (Protonix) 40 Mg Tab 40 MG PO BID for gastritis, #31 TAB Pravastatin (Pravachol) 20 Mg Tab 20 MG PO DAILY for Cholesterol Management, #30 TAB Discontinued Medications: Amoxicillin (Amoxicillin) 500 Mg Cap 1000 MG PO BID for Infection, #24 CAP Clarithromycin (Clarithromycin) 500 Mg Tab 500 MG PO Q12HR for Infection, #24 TAB Brooklyn Bernal MD May 04, 2017 08:38
[2017-05-04] MEDS: INSULIN DETEMIR 100 UNITS/ML VIAL SQ SCH (08:41)
[2017-05-04] MEDS: SODIUM CHLORIDE 0.9% FLUSH 10 ML FLUSH IV FLUSH SCH (08:41)
[2017-05-04] MEDS: PANTOPRAZOLE SOD 40 MG DELAYED RELEASE TAB PO SCH (08:41)
[2017-05-04 10:24] VITALS: RESP 18
== END 2017-05-04 11:48 | disposition home or self-care (01) ==
LOC: PHEDDLT 04:35 → PH3A 04:45 → UNDODISOB 18:22
PROVIDERS: ADMIT Hospitalist; ATTEND Hospitalist
DX: R10.9 Unspecified abdominal pain (principal); E11.65 Type 2 diabetes mellitus with hyperglycemia; R74.8 Abnormal levels of other serum enzymes; E78.1 Pure hyperglyceridemia; K29.60 Other gastritis without bleeding; F17.210 Nicotine dependence, cigarettes, uncomplicated; Z79.4 Long term (current) use of insulin; Z86.19 Personal history of other infectious and parasitic diseases; Z90.49 Acquired absence of other specified parts of digestive tract; Z91.19 Patient's noncompliance with other medical treatment and regimen
CPT/HCPCS: 74020; 74177; 74181; 74250; 76377; 80048; 80053; 80061; 81001; 82948; 83036; 83655; 83690; 84311; 85025; 85652; 87493; 96361; 96365; 96366; 96367; 96372; 96374; 96375; 96376; 99285; G0378; J0500; J0744; J1170; J1200; J1815; J1885; J2270; J2405; J7030; Q9963; Q9967

== ENCOUNTER 2018-04-18 18:50 | Observation (INO) ==
[2018-04-19] MEDS ORDERED: Acetaminophen 500 MG Tablet PO PRN (00:45)
[2018-04-19] MEDS ORDERED: Morphine Inj 4 MG/ML Vial IV.PUSH PRN (00:45)
[2018-04-19] MEDS ORDERED: Dextrose 50% in Water 50 ML Vial IV.PUSH PRN (00:49)
[2018-04-19] MEDS: Sod Chloride 0.9% Inj 1,000 ML IV.CONT SCH ×2 (02:16→10:52)
[2018-04-19] MEDS: Insulin NovoLOG Aspart Correctional Sugar Inj SQ SCH ×2 (08:42→13:15)
[2018-04-19] MEDS ORDERED: Aspirin 325 MG Tablet PO SCH (09:00)
[2018-04-19] MEDS ORDERED: Famotidine 20 MG Tablet PO SCH (09:00)
[2018-04-19 09:45] VITALS: BP 101/52; RESP 12; TEMP 98; O2SAT 96
[2018-04-19 10:09] LABS: Magnesium 1.8 mg/dL (1.5-2.5)
[2018-04-19] MEDS ORDERED: Aluminum/Magnesium/Simethacone Susp 30 ML UDC PO ONE (10:14)
[2018-04-19] MEDS ORDERED: Pantoprazole Inj 40 MG Vial IV.PUSH ONE (10:14)
--- NOTE | 2018-04-19 10:16 | P.HP ---
History of Present Illness Primary Care Physician: No Primary Care Physician Chief Complaint: Chest pain History of Present Illness: This is a pleasant 42-year-old male patient with a known medical history of type 2 diabetes mellitus who presented to the ED with complaints of chest pain. Patient states that on Friday after lunch he noticed he was very weak and tired, took his blood sugar was 280, took his sliding scale insulin laid down for the rest of the day and for the day on Friday. He states that Friday evening as he was lying in bed he developed a midsternal chest pressure, he states that it felt like someone was sitting on his chest, he denied any radiation of the pain, he did admit to associated shortness of breath, states he felt like he was may be getting sick and took some DayQuil which did not help. Around 1899 he decided that he would be sent to the ED due to the pain not resolving. He denies any associated nausea, vomiting or sweating with the pain. He denies ever having this type of sensation before. Has any new changes to his medications. He does not follow with a primary care physician, states he buys his insulin over the counter. Does not know his last A1c or lipid panel. Does have a significant family history of cardiovascular disease on his father's side, he had an IN at the age of [age] years old. Does also admit to smoking cigarettes since his teen years, has been trying to quit, is down to 1/2 ppd from 2 1/2 packs per day. It should also be noted that patient has had an EGD in the past and was diagnosed with an ulcer in his 20's. He intermittently takes over the counter PPI for GERD symptoms. - Diagnosis (1) Chest pain Review of Systems All other systems reviewed negative except as stated in HPI PMFSH - History History Provided By: Patient - Medical History Medical History: Medical History (Last Reviewed 04/19/18 @ 10:27 by Renetta Dejesus) Deafness in left ear Diabetes type 2, controlled - Surgical History Surgical History: Surgical History (Last Reviewed 04/19/18 @ 10:27 by Renetta Dejesus) Hx of cholecystectomy - Family History Family History: Family History (Last Updated 04/19/18 @ 10:27 by Renetta Dejesus) Father Cardiovascular disease - Social History I have reviewed the patient's Social History: Yes - Tobacco History Second Hand Smoke Exposure: Yes Tobacco Use In Past 30 Days: Yes Smoking Status: Current every day smoker Tobacco Type: Cigarettes - Alcohol History How Often Do You Have a Drink Containing Alcohol: Never - Substance Use History Substance History: No History of Abuse Medications and Allergies Active Medications: Active Medications Acetaminophen (Tylenol) 500 mg PO Q4H PRN PRN Reason: HEADACHE Hydrocodone Bitart/Acetaminophen ([place] 7.5/325) 1 tab PO Q4H PRN PRN Reason: PAIN SCALE 1 TO 5 Aspirin (Aspirin) 325 mg PO DAILY [facility] Last Admin: 04/19/18 08:45 Dose: 325 mg Dextrose (D50w Vial) 50 ml IV.PUSH UNSCH PRN PRN Reason: PER HYPOGLYCEMIA PROTOCOL Famotidine (Pepcid) 20 mg PO BID [facility] Last Admin: 04/19/18 08:45 Dose: 20 mg Glucagon (Glucagon Inj) 1 mg OTHER PRN PRN PRN Reason: for Hypoglycemia Protocol Sodium Chloride (Ns Inj) 1,000 mls @ 100 mls/hr IV.CONT .Q10H [facility] Last Admin: 04/19/18 02:16 Dose: 100 mls/hr Insulin Aspart (Novolog Insulin [place]al Sugar Inj) 0 unit SQ ACHS [facility]; Protocol Last Admin: 04/19/18 08:42 Dose: Not Given Morphine Sulfate (Morphine Inj) 2 mg IV.PUSH Q4H PRN PRN Reason: PAIN SCALE 6 TO 10 Nitroglycerin (Nitrostat Sl) 0.4 mg SL Q5M PRN PRN Reason: ANGINA Sodium Chloride (Ns Flush) 2 ml IV.FLUSH BID [facility] Last Admin: 04/19/18 08:45 Dose: Not Given Sodium Chloride (Ns Flush) 2 ml IV.FLUSH PRN PRN PRN Reason: FLUSH AFTER USING IV ACCESS Allergies Allergy/AdvReac Type Severity Reaction Status Date / Time No Known Allergies Allergy Verified 04/18/18 19:33 Home Medications Medication Instructions Recorded Confirmed Type insulin regular human [Humulin R 1 sliding scale dose SUBCUT UD 04/18/18 History Regular U-100 Insuln] Exam Vital signs: Vital Signs 04/19/18 01:55 04/19/18 04:00 04/19/18 08:00 Temperature 96.1 F L 97.1 F L 98.0 F Pulse Rate 83 85 85 Respiratory Rate 20 18 12 Blood Pressure 99/58 L 106/60 101/52 L Pulse Oximetry 97 93 L 96 04/19/18 08:40 Temperature Pulse Rate 85 Respiratory Rate Blood Pressure Pulse Oximetry Intake & Output 04/18/18 04/19/18 04/19/18 18:59 06:59 18:59 Output Total 700 / 700 Balance -700 / -700 Weight 95.7 kg Output: Urine 700 / 700 Other: Weight On Admission 95.7 kg Narrative: GENERAL: Well-developed, well-nourished patient in NAD. SKIN: Warm and dry. No rash. HEAD: Normocephalic. Atraumatic. EYES: Pupils equal and round. No scleral icterus. No injection or drainage. ENT: No nasal bleeding or discharge. Mucous membranes pink and moist. NECK: Supple. Trachea midline. CARDIOVASCULAR: Regular rate and rhythm. S1, S2 noted. No murmur appreciated. No chest pain to palpation. RESPIRATORY: No accessory muscle use. Clear to auscultation. Breath sounds equal bilaterally. GASTROINTESTINAL: Abdomen soft, non-tender, nondistended. Normoactive bowel sounds x4. MUSCULOSKELETAL: No obvious deformities. Extremities without clubbing, cyanosis , or edema. NEUROLOGICAL: Awake and alert. No obvious cranial nerve deficits. Motor grossly within normal limits. 5/5 muscle strength in bilateral upper and lower extremities. Normal speech. PSYCHIATRIC: Appropriate mood and affect; insight and judgment normal. Results - Labs Labs: Laboratory Results - last 24 hr 04/19/18 04/19/18 04/19/18 01:59 02:45 07:47 POC Glucose 247 H 227 H Magnesium 1.8 Caprini VTE Risk Assessment Caprini VTE Risk Assessment: No/Low Risk (score <= 1) Caprini Risk Assessment Model: Point Value = 1 Point Value = 2 Point Value = 3 Point Value = 5 Age 41-60 Minor surgery BMI > 25 kg/m2 Swollen legs Varicose veins or History of unexplained or recurrent spontaneous Oral contraceptives or hormone replacement Sepsis (< 1 month) Serious lung disease, including pneumonia (< 1 month) Abnormal pulmonary function Acute myocardial infarction Congestive heart failure (< 1 month) History of inflammatory bowel disease Medical patient at bed rest Age 61-74 Arthroscopic surgery Major open surgery (> 45 min) Laparoscopic surgery (> 45 min) Malignancy Confined to bed (> 72 hours) Immobilizing plaster cast Central venous access Age >= 75 History of VTE Family history of VTE Factor V Leiden Prothrombin [id number] Lupus anticoagulant Anticardiolipin antibodies Elevated serum homocysteine Heparin-induced thrombocytopenia Other congenital or acquired thrombophilia Stroke (< 1 month) Elective arthroplasty Hip, pelvis, or leg fracture Acute spinal cord injury (< 1 month) Prophylaxis Regimen: Total Risk Factor Score Risk Level Prophylaxis Regimen 0-1 Low Early ambulation 2 Moderate Order ONE of the following: *Sequential Compression Device (SCD) *Heparin 5000 units SQ BID 3-4 Higher Order ONE of the following medications: *Heparin 5000 units SQ TID *Enoxaparin/Lovenox 40 mg SQ daily (WT < 150 kg, CrCl > 30 mL/min) *Enoxaparin/Lovenox 30 mg SQ daily (WT < 150 kg, CrCl > 10-29 mL/min) *Enoxaparin/Lovenox 30 mg SQ BID (WT < 150 kg, CrCl > 30 mL/min) AND/OR *Sequential Compression Device (SCD) 5 or more Highest Order ONE of the following medications: *Heparin 5000 units SQ TID (Preferred with Epidurals) *Enoxaparin/Lovenox 40 mg SQ daily (WT < 150 kg, CrCl > 30 mL/min) *Enoxaparin/Lovenox 30 mg SQ daily (WT < 150 kg, CrCl > 10-29 mL/min) *Enoxaparin/Lovenox 30 mg SQ BID (WT < 150 kg, CrCl > 30 mL/min) AND *Sequential Compression Device (SCD) Assessment and Plan - Assessment (1) Chest pain Code(s): R07.9 - Chest pain, unspecified Status: Acute - Plan This is a 42-year-old male patient with: Chest pain -Presented with a two day history of chest pressure. -Patient has been admitted to the chest pain center for observation. -Serial serial EKGs and serial troponins have been ordered for ruling out ACS purposes. Serial troponin flat. -EKG reviewed showing sinus rhythm with no ST changes to indicate any ischemia. Patient has been continue on cardiac telemetry overnight, no arrhythmias overnight. -Chest pain has improved slightly still complains of residual pressure in his midsternal chest. -Chest x-ray reviewed, no acute cardiopulmonary disease noted. -CBC and BMP reviewed, essentially unremarkable. UA negative. -Patient denies ever having a cardiac stress test in the past. -Patient's risk factors for cardiovascular disease include a significant family medical history on his father's side of cardiovascular disease and IN at a young age, diabetes, hyperlipidemia, and smoking. -Patient will undergo a cardiac Lexiscan to further rule out any ischemia. -Patient is stable at this time and agreeable to plan. -Further hospitalization treatment plan will depend on nuclear imaging results. -Will also give a GI cocktail, patient does express some burning in his midepigastric area. Rule out possible GERD. Continue to monitor. Type 2 diabetes mellitus, chronic -Accu-Chek before meals at bedtime, sliding scale, cover as needed. Monitor blood sugar trends. Monitor for hypoglycemia especially being n.p.o. we will also add an A1c to labs as well. History of hyperlipidemia -Not on a statin. Will add lipid panel to labs. Continue to follow. Tobacco abuse -Encouraged cessation. Nicotine patch offered. DVT perplexes: SCDs. Evaluation.
[2018-04-19] MEDS ORDERED: Regadenoson Inj 0.4 MG/5 ML Syringe IV.PUSH ONE (13:06)
--- NOTE | 2018-04-19 14:14 | NM ---
EXAM DATE: 04/19/2018 2:09 PM EST AGE/SEX: 42 years / Male INDICATIONS:Angina. . Mid-sternal chest pain with dyspnea. CLINICAL DATA: This is the patient's initial encounter. Patient reports that signs and symptoms have been present for 1 day and indicates a pain score of 7/10. MEDICAL/SURGICAL HISTORY: Diabetes mellitus type II. Smoker. Cholecystectomy. COMPARISON: No prior exams available for comparison. DOSE: 8.8 mCi Tc 99m Myoview at rest 27.1 mCi [id number] at stress 0.4 mg Lexiscan STRESS SYMPTOMS: Dyspnea and chest pain. EJECTION FRACTION: 52 % TECHNIQUE: The patient underwent pharmacologic stress with infusion of prescribed dose. Continuous ECG tracing was monitored during stress. Gated SPECT imaging was performed after stress and conventi onal SPECT imaging was performed at rest. The examination was performed on a SPECT/CT scanner, both attenuation and non-corrected datasets were reviewed. FINDINGS: Distribution: The maximum perfused segment at stress is in the lateral wall. Perfusion Study: The pattern of perfusion at stress is within normal limits. Gated Study: There are intact wall motion and wall thickening without hypokinetic or dyskinetic segm ents. The ejection fraction is calculated at 52%. RISK CATEGORY: Low (<1% Annual Motality Rate) CONCLUSION: 1. Unremarkable myocardial perfusion examination. Electronically signed by: Wade Mancini MD 04/19/2018 2:13 PM EST
[2018-04-19 14:40] LABS: Chol/HDL Ratio 9.23 Ratio; HDL Cholesterol 22.1 mg/dL (40.0-60.0)
--- NOTE | 2018-04-19 15:04 | P.AMA ---
AMA Note - Diagnosis (1) Chest pain Recommended Treatment Course: Shortly after the discussion about plan for dc and awaiting lipid panel I went in to reexamine patient to give script for fenofibrate for triglyceride level of 711. Patient states he is still having chest pain, plan was to discontinue the DC order and continue work up to continue to evaluate the active chest pain. Patient began to curse at the RN and walked out, it was advised he stay for further work up. He left without the prescriptions and said "not to send him the bill". Patient is at high risk for cardiovascular event and even stroke. AMA Statement: Patient Bucky Jefferson III has decided to leave the hospital against medical advice. This patient has the capacity to refuse care and understands the risks of leaving, including permanent disability and/or , and has had an opportunity to ask questions about his/her condition. The patient has been informed that he/she may return for care at any time, and follow up has been arranged/advised. Discharge Disposition: 01 Discharge Home Patient Condition on Discharge: Good
[2018-04-19 15:18] VITALS: PULSE 80
--- NOTE | 2018-04-20 15:47 | TR ---
Date Performed: 04/19/2018 Time Performed: 13:29:34 DOCTOR: Vincenzo Hill DRUG LIST: CLINICAL HISTORY: REASON FOR TEST: Chest pain REASON FOR ENDING: OBSERVATION: CONCLUSION: COMMENTS: Lexiscan stress test was performed under standard four minute protocol. Radionuclide was injected one minute prior to ending the test. No electrocardiographic abormalities were present t o suggest ischemia. Nuclear imaging and interpretation are pending.
[2018-04-20 15:57] LABS: Hemoglobin A1c 9.8 % (4.3-6.0)
== END 2018-04-19 15:02 | disposition left against medical advice (07) ==
LOC: PH3 18:50 → PHEDDLT 18:50 → UNDODISOB 04-19 12:50
PROVIDERS: ADMIT Internal Medicine; ATTEND Internal Medicine